=== PATIENT | male | born 1970 | race Caucasian/White ===

== ENCOUNTER 2020-07-04 13:06 | Emergency (ER) | payer MEDICARE, OTHER ==
[~2020-07-04] VITALS: Ht 170.2 cm; Wt 129.3 kg
[2020-07-04 13:51] LABS: BASOPHILS # (AUTO) 0.1 10^3/uL (0.0-0.1); BASOPHILS % (AUTO) 1 % (0-10); EOSINOPHILS # (AUTO) 1.1 10^3/uL (0.0-0.3); EOSINOPHILS % (AUTO) 10 % (0-10); HEMATOCRIT 45 % (40-54); HEMOGLOBIN 15.4 g/dL (13.3-17.7); LYMPHOCYTES # (AUTO) 1.3 10^3/uL (1.0-4.0); LYMPHOCYTES % (AUTO) 12 % (12-44); MEAN CORPUSCULAR HEMOGLOBIN 32 pg (25-34); MEAN CORPUSCULAR HGB CONC 34 g/dL (32-36); MEAN CORPUSCULAR VOLUME 93 fL (80-99); MEAN PLATELET VOLUME 9.8 fL (9.0-12.2); MONOCYTES # (AUTO) 0.6 10^3/uL (0.0-1.0); MONOCYTES % (AUTO) 5 % (0-12); NEUTROPHILS # (AUTO) 7.7 10^3/uL (1.8-7.8); NEUTROPHILS % (AUTO) 71 % (42-75); PLATELET COUNT 310 10^3/uL (130-400); WHITE BLOOD COUNT 10.9 10^3/uL (4.3-11.0)
--- NOTE | 2020-07-04 14:13 | ED Respiratory ---
General Chief Complaint: Respiratory Problems Stated Complaint: SOB/LIGHTHEADED Source: patient Exam Limitations: no limitations History of Present Illness Date Seen by Provider: Jul 04, 2020 Time Seen by Provider: 13:28 Initial Comments This is a 50-year-old male who presents to the ER with complaints of difficulty taking a full breath. States that over the past 2 days he has felt fatigued, lightheaded, and feels short of breath although his "oxygen is good at home". States has a history of asthma however this feels different than his prior asthma attacks. States he took Combivent inhaler prior to arrival. No Covid exposure, no ill contacts reported. Has not had Covid vaccines. Denies fever, chills, chest pain, abdominal pain, nausea/vomiting/diarrhea. Allergies and Home Medications Home Medications Oseltamivir Phosphate 75 Mg Capsule, 75 MG PO BID Prescribed by: HOMAR SHEFFIELD on 07/04/20 5673 Patient Home Medication List Home Medication List Reviewed: Yes Review of Systems Review of Systems Constitutional: see HPI EENTM: no symptoms reported Respiratory: see HPI Cardiovascular: no symptoms reported Gastrointestinal: no symptoms reported Genitourinary: no symptoms reported Musculoskeletal: no symptoms reported Psychiatric/Neurological: No Symptoms Reported Immunological/Allergic: no symptoms reported Physical Exam Vital Signs - First Documented 07/04/20 13:07 Temp 36.2 Pulse 101 Resp 24 B/P (MAP) 127/83 (98) Pulse Ox 100 O2 Delivery Room Air Capillary Refill : Height: '" Weight: lbs. oz. kg; BMI Method: General Appearance: WD/WN, no apparent distress Eyes: Bilateral Eye Normal Inspection, Bilateral Eye PERRL, Bilateral Eye EOMI HEENT: PERRL/EOMI, normal ENT inspection, pharynx normal Neck: full range of motion, normal inspection Respiratory: chest non-tender, normal breath sounds, no respiratory distress, no accessory muscle use, wheezing Cardiovascular: regular rate, rhythm, no murmur Gastrointestinal: normal bowel sounds, non tender, soft Extremities: normal range of motion, non-tender, normal inspection Neurologic/Psychiatric: no motor/sensory deficits, alert, normal mood/affect, oriented x 3 Skin: normal color, warm/dry Progress/Results/Core Measures Suspected Sepsis SIRS Temperature: Pulse: Respiratory Rate: Laboratory Tests 07/04/20 13:36: White Blood Count 10.9 Blood Pressure / Mean: Laboratory Tests 07/04/20 13:36: Creatinine 1.13, Platelet Count 310, Total Bilirubin 0.7 Results/Orders Lab Results Laboratory Tests Test 07/04/20 13:36 Range/Units White Blood Count 10.9 4.3-11.0 10^3/uL Red Blood Count 4.87 4.30-5.52 10^6/uL Hemoglobin 15.4 13.3-17.7 g/dL Hematocrit 45 40-54 % Mean Corpuscular Volume 93 80-99 fL Mean Corpuscular Hemoglobin 32 25-34 pg Mean Corpuscular Hemoglobin Concent 34 32-36 g/dL Red Cell Distribution Width 14.1 10.0-14.5 % Platelet Count 310 130-400 10^3/uL Mean Platelet Volume 9.8 9.0-12.2 fL Immature Granulocyte % (Auto) 1 % Neutrophils (%) (Auto) 71 42-75 % Lymphocytes (%) (Auto) 12 12-44 % Monocytes (%) (Auto) 5 0-12 % Eosinophils (%) (Auto) 10 0-10 % Basophils (%) (Auto) 1 0-10 % Neutrophils # (Auto) 7.7 1.8-7.8 10^3/uL Lymphocytes # (Auto) 1.3 1.0-4.0 10^3/uL Monocytes # (Auto) 0.6 0.0-1.0 10^3/uL Eosinophils # (Auto) 1.1 H 0.0-0.3 10^3/uL Basophils # (Auto) 0.1 0.0-0.1 10^3/uL Immature Granulocyte # (Auto) 0.1 0.0-0.1 10^3/uL D-Dimer 0.27 0.00-0.49 UG/ML Sodium Level 138 135-145 MMOL/L Potassium Level 3.7 3.6-5.0 MMOL/L Chloride Level 103 98-107 MMOL/L Carbon Dioxide Level 25 21-32 MMOL/L Anion Gap 10 5-14 MMOL/L Blood Urea Nitrogen 13 7-18 MG/DL Creatinine 1.13 0.60-1.30 MG/DL Estimat Glomerular Filtration Rate > 60 BUN/Creatinine Ratio 12 Glucose Level 256 H 70-105 MG/DL Calcium Level 9.0 8.5-10.1 MG/DL Corrected Calcium 9.1 8.5-10.1 MG/DL Total Bilirubin 0.7 0.1-1.0 MG/DL Aspartate Amino Transf (AST/SGOT) 19 5-34 U/L Alanine Aminotransferase (ALT/SGPT) 26 0-55 U/L Alkaline Phosphatase 43 40-136 U/L Troponin I < 0.028 <0.028 NG/ML C-Reactive Protein High Sensitivity 2.24 H 0.00-0.50 MG/DL Total Protein 7.2 6.4-8.2 GM/DL Albumin 3.9 3.2-4.5 GM/DL Coronavirus 2019 ([facility]ARON) Not Detected Not Detecte Micro Results Microbiology 07/04/20 Influenza Types A,B Antigen (RAJEEV) - Final, Complete My Orders Orders - HOMAR SHEFFIELD APRN Ed Iv/Invasive Line Start (07/04/20 13:33) Cbc With Automated Diff (07/04/20 13:33) Comprehensive Metabolic Panel (07/04/20 13:33) Hs C Reactive Protein (07/04/20 13:33) Troponin I (07/04/20 13:33) Fibrin Degradation Products (07/04/20 13:33) Ekg Tracing (07/04/20 13:33) Chest 1 View, Ap/Pa Only (07/04/20 13:33) Influenza A And B Antigens (07/04/20 13:33) Covid 19 Inhouse Test (07/04/20 13:33) Vital Signs/I&O 07/04/20 07/04/20 13:07 14:36 Temp 36.2 Pulse 101 84 Resp 24 22 B/P (MAP) 127/83 (98) 132/82 Pulse Ox 100 98 O2 Delivery Room Air Room Air Capillary Refill : Progress Note : Progress Note Patient examined and in no acute distress. Will order basic labs, D-dimer, troponin, Covid, flu, chest x-ray. Labs reviewed and are unremarkable. D-dimer negative. He does have positive influenza B test. Chest x-ray shows no acute findings. Declined receiving dose of Tamiflu in ER stating he wanted to see if the cost was "worth it". States he will take a prescription. Reviewed discharge plan of care and he is agreeable with plan. States he feels better knowing what is wrong with him. No questions or concerns voiced. Diagnostic Imaging Diagonstic Imaging: Xray Plain Films/CT/US/NM/MRI: chest Comments NAME: YURIY MAYA [facility] REC#: [id number] PT STATUS: REG ER : 1970 PHYSICIAN: HOMAR SHEFFIELD APRN ADMIT DATE: 07/04/20/ER Draft Date of Exam:07/04/20 CHEST 1 VIEW, AP/PA ONLY INDICATION: Shortness of air, tachycardia COMPARISON: None available TECHNIQUE: Single radiograph of the chest dated 07/04/2020 FINDINGS: The cardiac silhouette is within normal limits in size. No significant pulmonary vascular congestion. The lungs are clear without focal pulmonary opacity. No pleural effusion. No pneumothorax. No acute osseous abnormality. IMPRESSION: No acute cardiopulmonary abnormality. Dictated on workstation # [id number] Dict: 07/04/20 1419 Trans: 07/04/20 1423 [facility] [id number] Interpreted by: BEVERLEY BECK MD Electronically signed by: Reviewed: Reviewed by Me Departure Impression Primary Impression: Influenza B Disposition: HOME, SELF-CARE Condition: Improved Departure-Patient Inst. Decision time for Depature: 14:29 Referrals: NO,LOCAL PHYSICIAN (PCP/Family) Primary Care Physician Patient Instructions: Flu, Adult ED Add. Discharge Instructions: Plan: 1. Discharge home. 2. Take Tamiflu twice a day for 5 days. Stay home until you are fever free without use of medications for 48 hours. 3. Drink plenty of fluids to stay hydrated. 4. May take Tylenol or Ibuprofen as needed for pain. 5. Return for any new or worsening symptoms. All discharge instructions reviewed with patient and/or family. Voiced understanding. Scripts Oseltamivir Phosphate (Oseltamivir Phosphate) 75 Mg Capsule 75 MG PO BID for 5 Days, #10 CAP 0 Refills Prov: HOMAR SHEFFIELD APRN 07/04/20 HOMAR SHEFFIELD APRN Jul 04, 2020 14:13
[2020-07-04 14:17] LABS: ALANINE AMINOTRANSFERASE 26 U/L (0-55); ALBUMIN 3.9 GM/DL (3.2-4.5); ALKALINE PHOSPHATASE 43 U/L (40-136); BILIRUBIN,TOTAL 0.7 MG/DL (0.1-1.0); BUN/CREATININE RATIO 12; CARBON DIOXIDE 25 MMOL/L (21-32); CHLORIDE 103 MMOL/L (98-107); CREATININE SERUM 1.13 MG/DL (0.60-1.30); GFR ESTIMATED > 60; GLUCOSE 256 MG/DL (70-105); POTASSIUM 3.7 MMOL/L (3.6-5.0); SODIUM 138 MMOL/L (135-145); TOTAL PROTEIN 7.2 GM/DL (6.4-8.2)
--- NOTE | 2020-07-04 14:23 | Diagnostic Imaging Report ---
INDICATION: Shortness of air, tachycardia COMPARISON: None available TECHNIQUE: Single radiograph of the chest dated 07/04/2020 FINDINGS: The cardiac silhouette is within normal limits in size. No significant pulmonary vascular congestion. The lungs are clear without focal pulmonary opacity. No pleural effusion. No pneumothorax. No acute osseous abnormality. IMPRESSION: No acute cardiopulmonary abnormality. Dictated by: Dictated on workstation # [id number]
[2020-07-04] MEDS ORDERED: OSEL75CA15 PO (14:33)
[2020-07-04 14:36] VITALS: BP 132/82
== END 2020-07-04 14:36 | disposition home or self-care (01) ==
LOC: ER 13:09
DX: J10.1 Influenza due to other identified influenza virus with other respiratory manifestations (principal); J45.909 Unspecified asthma, uncomplicated; Z20.822 Contact with and (suspected) exposure to COVID-19
CPT/HCPCS: 71045; 80053; 84484; 85025; 85379; 86141; 87804; 93005; 99284; U0002; 36415; 87635

== ENCOUNTER 2021-08-24 17:12 | Emergency (ER) | payer MEDICARE ==
[~2021-08-24] VITALS: Ht 162 cm; Wt 117.0 kg
[~2021-08-24 17:12] MED LIST: OSEL75CA15 PO
[2021-08-24] MEDS ORDERED: CEPH500C (17:41)
--- NOTE | 2021-08-24 19:23 | ED Lower Extremity ---
General Chief Complaint: Lower Extremity Stated Complaint: RIGHT FOOT SWOLLEN Nursing Triage Note: ARRIVED VIA AMB TO TRIAGE. STATES HE WAS SEEN AT [facility] AND WAS PUT ON CEPHALEXIN AND A ULTRASOUND WAS DONE TO HIS RIGHT FOOT. STATES THE FOOT AND 2ND TOE REMAINS SWOLLEN AND THE TOE IS PURPLE. Source: patient, family Exam Limitations: no limitations History of Present Illness Date Seen by Provider: Aug 24, 2021 Time Seen by Provider: 19:19 Initial Comments This is a 51-year-old male that presents to the emergency room for evaluation of right foot pain. He states that on Sunday he noticed he had a large callus on his left second toe that he unroofed. Since then he has developed increasing pain and redness to his foot. He went to the [facility] emergency room on Sunday and was started on Keflex but states that his symptoms have persisted. He also had an ultrasound to rule out a DVT which was negative. He has a history of diabetes but states that he does not currently take any medications because he lost a lot of weight and they have told him that he no longer needed medications. Onset: other (6 days) Severity: mild Pain/Injury Location: right 2nd toe Allergies and Home Medications Allergies Coded Allergies: No Known Drug Allergies (Unverified , 08/24/21) Patient Home Medication List Home Medication List Reviewed: Yes Cephalexin (Cephalexin) 500 Mg Capsule, (Reported) Entered as Reported by: GRACIE ERWIN on 08/24/21 174 Last Action: New Order Clindamycin HCl (Clindamycin HCl) 150 Mg Capsule, 300 MG PO QID Prescribed by: Amrit Arreola on 08/24/211927 Metronidazole (Metronidazole) 500 Mg Tablet, 500 MG PO TID Prescribed by: Amrit Arreola on 08/24/211927 Discontinued Medications Oseltamivir Phosphate (Oseltamivir Phosphate) 75 Mg Capsule, 75 MG PO BID Discontinued Reason: No Longer Taking Prescribed by: HOMAR SHEFFIELD on 07/04/20 1433 Last Action: Discontinued Review of Systems Constitutional: no symptoms reported EENTM: no symptoms reported Respiratory: no symptoms reported Cardiovascular: no symptoms reported Musculoskeletal: other (Right foot swelling and ulceration to the right second toe) Skin: rash (Small ulceration to right second toe with minimal drainage) Past Ahfqmix-Pfiigm-Vzkglm Hx Patient Social History Tobacco Use?: Yes Use of E-Cig and/or Vaping dev: Yes E-Cig or Vaping type used: Nicotine Substance use?: No Alcohol Use?: No Seasonal Allergies Seasonal Allergies: No Past Medical History Surgeries: No Respiratory: Yes Asthma Cardiac: No Neurological: Yes Multiple Sclerosis Genitourinary: No Gastrointestinal: No Musculoskeletal: No Endocrine: Yes (PRE DIABETIC) Cancer: No Psychosocial: No Integumentary: No Blood Disorders: No Physical Exam Vital Signs Vital Signs - First Documented 08/24/21 17:30 Temp 37.0 Pulse 94 Resp 16 B/P (MAP) 138/83 (101) Pulse Ox 98 O2 Delivery Room Air Capillary Refill : Less Than 3 Seconds Height, Weight, BMI Height: '" Weight: lbs. oz. kg; 44.00 BMI Method: General Appearance: WD/WN, no apparent distress HEENT: PERRL/EOMI Neck: non-tender Cardiovascular: regular rate, rhythm Respiratory: chest non-tender Gastrointestinal: non tender Feet: right foot other (Patient has a small ulceration to the pad of the right second toe with minimal drainage. There is moderate edema to the foot with some erythema) Neurologic/Psychiatric: flash welder II-XII nml as tested, alert, oriented x 3 Progress/Results/Core Measures Results/Orders Vital Signs/I&O 08/24/21 17:30 Temp 37.0 Pulse 94 Resp 16 B/P (MAP) 138/83 (101) Pulse Ox 98 O2 Delivery Room Air Blood Pressure Mean: 101 Departure Communication (PCP) Patient does have a small ulceration on the right second toe with some secondary cellulitis. Per patient he had a negative ultrasound on Sunday. At this time we discussed admission for IV antibiotics but the patient would like to try outpatient antibiotics for a little longer. Given that he has a history of diabetes and now has a foot ulcer I will cover him with clindamycin and Flagyl. Patient and family agree to return to the emergency room in 1 to 2 days if symptoms persist or sooner if they worsen. Impression Primary Impression: Cellulitis of foot Additional Impression: Open toe wound Disposition: 01 HOME, SELF-CARE Condition: Stable Departure-Patient Inst. Decision time for Depature: 19:26 Referrals: [facility] [place] PHYSIC[place] (PCP) Primary Care Physician Patient Instructions: Cellulitis (Skin Infection), Adult (DC), Wound Care (DC) Add. Discharge Instructions: Please take the antibiotics until they are complete. If your symptoms persist or fail to improve in the next 1 to 2 days I want you to return to the emergency room for reevaluation. If your symptoms worsen, I want you to return immediately as we discussed. All discharge instructions reviewed with patient and/or family. Voiced understanding. Scripts Metronidazole (Metronidazole) 500 Mg Tablet 500 MG PO TID for 10 Days, #30 TAB Prov: GHADA ARREOLA 08/24/21 Clindamycin HCl (Clindamycin HCl) 150 Mg Capsule 300 MG PO QID for 10 Days, #40 CAP Prov: GHADA ARREOLA 08/24/21 GHADA ARREOLA Aug 24, 2021 19:23
[2021-08-24] MEDS ORDERED: METR-145 PO (19:28)
[2021-08-24] MEDS ORDERED: CLIN150C20 PO (19:28)
[2021-08-24 19:33] VITALS: BP 157/73
== END 2021-08-24 19:35 | disposition home or self-care (01) ==
LOC: EDUNIT# 17:12 → ER 17:15
DX: L03.115 Cellulitis of right lower limb (principal); L97.518 Non-pressure chronic ulcer of other part of right foot with other specified severity; F17.290 Nicotine dependence, other tobacco product, uncomplicated
CPT/HCPCS: 99285

== ENCOUNTER 2021-08-29 22:17 | Inpatient (IN) | payer MEDICARE ==
[~2021-08-29] VITALS: Ht 168 cm; Wt 127.0 kg
[~2021-08-29 22:17] MED LIST changes: +CEPH500C; +CLIN150C20 PO; +METR-145 PO
[2021-08-29] MEDS ORDERED: CEFEPIME INJECTION 1,000 MG in NS (IVPB) 50 ML IV ONE (23:00)
[2021-08-29] MEDS ORDERED: metroNIDAZOLE 500MG/100ML IVPB 100 ML IV ONE (23:00)
[2021-08-29 23:24] LABS: BASOPHILS # (AUTO) 0.1 10^3/uL (0.0-0.1); BASOPHILS % (AUTO) 1 % (0-10); EOSINOPHILS # (AUTO) 0.5 10^3/uL (0.0-0.3); EOSINOPHILS % (AUTO) 5 % (0-10); HEMATOCRIT 39 % (40-54); HEMOGLOBIN 13.1 g/dL (13.3-17.7); LYMPHOCYTES # (AUTO) 1.5 10^3/uL (1.0-4.0); LYMPHOCYTES % (AUTO) 14 % (12-44); MEAN CORPUSCULAR HEMOGLOBIN 30 pg (25-34); MEAN CORPUSCULAR HGB CONC 33 g/dL (32-36); MEAN CORPUSCULAR VOLUME 90 fL (80-99); MEAN PLATELET VOLUME 9.4 fL (9.0-12.2); MONOCYTES # (AUTO) 0.6 10^3/uL (0.0-1.0); MONOCYTES % (AUTO) 5 % (0-12); NEUTROPHILS # (AUTO) 8.2 10^3/uL (1.8-7.8); NEUTROPHILS % (AUTO) 75 % (42-75); PLATELET COUNT 308 10^3/uL (130-400)
[2021-08-29 23:26] LABS: BILIRUBIN,URINE NEGATIVE (NEGATIVE); CLARITY,URINE CLEAR; COLOR,URINE YELLOW; GLUCOSE, URINE (UA) 3+ (NEGATIVE); KETONES,URINE NEGATIVE (NEGATIVE); LEUKOCYTE ESTERASE ,URINE NEGATIVE (NEGATIVE); NITRITE,URINE NEGATIVE (NEGATIVE); PROTEIN,URINE NEGATIVE (NEGATIVE)
[2021-08-29 23:38] LABS: ALBUMIN 3.8 GM/DL (3.2-4.5); POTASSIUM 4.5 MMOL/L (3.6-5.0)
[2021-08-29 23:40] LABS: CALCIUM 8.8 MG/DL (8.5-10.1)
[2021-08-29 23:41] LABS: TOTAL PROTEIN 7.5 GM/DL (6.4-8.2)
[2021-08-29 23:43] LABS: BILIRUBIN,TOTAL 0.6 MG/DL (0.1-1.0)
[2021-08-29] MEDS: VANCOMYCIN INJECTION 1,000 MG in NS (IVPB) 250 ML IV SCH (23:44)
[2021-08-29 23:45] LABS: CREATININE SERUM 1.17 MG/DL (0.60-1.30)
[2021-08-29 23:51] LABS: FIBRIN DEGRADATION PRODUCTS 0.58 UG/ML (0.00-0.49)
[2021-08-30] VITALS (7 sets, daily range): BP systolic 116–129; BP diastolic 57–90
[2021-08-30] MEDS ORDERED: KETOROLAC 30 MG/ML VIAL IVP ONE
[2021-08-30 00:09] LABS: BACTERIA,URINE NEGATIVE /HPF; SQUAMOUS EPITHELIAL CELL,UR 0-2 /HPF
[2021-08-30 00:09] LABS: ERYTHROCYTE SEDIMENTATION RATE 37 MM/HR (0-30)
--- NOTE | 2021-08-30 02:06 | ED Lower Extremity ---
General Chief Complaint: Skin/Wound Problems Stated Complaint: RIGHT FOOT PAIN Nursing Triage Note: PT AMB TO ED BY POV WITH C/O WOUND ON SECOND TOE OF R FOOT. PT REPORTS HE HAD A CALLUS ON HIS TOE A WEEK AGO AND WAS SEEN HERE WHEN IT CAME OFF AND LEFT A WOUND. TOE IS RED, SWOLLEN. LEG ALSO RED AND SWOLLEN. DENIES FEVER, N/V/D. Source: patient History of Present Illness Date Seen by Provider: Aug 29, 2021 Time Seen by Provider: 22:35 Initial Comments PT ARRIVES VIA POV FROM HOME C/O RIGHT FOOT/SECOND TOE PAIN FOR OVER A WEEK RIGHT FOOT AND LOWER LEG HAS ALSO BEEN SWOLLEN FOR OVER A WEEK PT HAS HAD A CALLOUS ON HIS RIGHT GREAT TOE "FOR A COUPLE OF MONTHS" IN THE LAST WEEK HAS HAD AN OPEN WOUND/ULCER TO END OF RIGHT SECOND TOE--STATES THERE WAS A CALLOUS ON HIS SECOND TOE AND HE PULLED IT OFF, AND SINCE THEN HIS ENTIRE SECOND TOE HAS BEEN RED, SWOLLEN AND PAINFUL WENT TO [facility] LAST WEEK FOR THIS PROBLEM AND WAS PRESCRIBED KEFLEX. HAD ULTRASOUND DONE AT THAT TIME WHICH WAS NEGATIVE FOR DVT--PT STATES HE HAS HISTORY OF DVT'S BUT IS NOT ON ANY ANTICOAGULANTS--ONLY TAKES 324 MG ASPIRIN DAILY PT THEN WAS HERE ON 08/24/21 FOR THIS PROBLEM AND WAS PRESCRIBED CLINDAMYCIN AND FLAGYL, HIS SYMPTOMS WERE NOT IMPROVING WITH THE KEFLEX. HAS HIS FIRST APPOINTMENT WITH DR. GORDON, FLASH OVEN OPERATOR, FOR THIS PROBLEM TOMORROW TONIGHT, HE HIT HIS FOOT / TOE ON A STEP AND THE PAIN HAS BEEN WORSE PT IS DIABETIC--WAS ON INSULIN, BUT STATES HE HAS BEEN OFF ALL DIABETIC MEDIC ATIONS FOR OVER A YEAR, HE HAS LOST WEIGHT--HOWEVER, HE LISTS FARXIGA ONE OF HIS CURRENT DAILY MEDICATIONS PT DOES NOT CHECK HIS BLOOD SUGAR PT HAS PERIPHERAL NEUROPATHY, CHRONIC PAIN, AND CHRONIC LEG SWELLING PT ALSO HAS M.S. BUT STATES HE DOES NOT TAKE ANY MEDICATION FOR IT. HAS HTN WELL PT'S PRIMARY CARE DR IS IN [place], [place]. STATES THEY MOVED HERE "RECENTLY" ( OVER A YEAR AGO) AND HAVE NOT ESTABLISHED WITH LOCAL DR YET, SO THEY CONTINUE TO GO TO IN [place]. PT HAS NOT HAD COVID OR FLU VACCINES PT STATES HE HAS HAD COVID TWICE--LAST TIME WAS 01/2021--NO TREATMENT OR HOSPITALIZATIONS PCP: NONE LOCAL Allergies and Home Medications Allergies Coded Allergies: Penicillins (Verified Allergy, Unknown, 08/29/21) Sulfa (Sulfonamide Antibiotics) (Verified Allergy, Unknown, 08/29/21) doxycycline (Verified Allergy, Unknown, Shortness of Breath, 08/30/21) dulaglutide (Verified Allergy, Unknown, 08/30/21) semaglutide (Verified Allergy, Unknown, 08/30/21) Patient Home Medication List Home Medication List Reviewed: Yes Albuterol Sulfate (Proventil Hfa) 90 Mcg Hfa.aer.ad, 1 PUFF INH Q6H PRN for SHORTNESS OF BREATH, (Reported) Entered as Reported by: MONSE CORTEZ on 08/30/211211 Last Action: Held Albuterol Sulfate (Albuterol Sulfate) 2.5 Mg/3 Ml (0.083 %) Vial.neb, 3 ML NEB Q6H PRN for SHORTNESS OF BREATH, (Reported) Entered as Reported by: MONSE CORTEZ on 08/30/211211 Last Action: Held Aspirin (Aspirin EC) 325 Mg Tablet.dr, 325 MG PO DAILY PRN for BLOOD CLOT PREVENTION, (Reported) Entered as Reported by: MONSE CORTEZ on 08/30/211211 Last Action: Held Bupropion HCl (Bupropion Xl) 150 Mg Tab.er.24h, 150 MG PO DAILY, (Reported) Entered as Reported by: MONSE CORTEZ on 08/30/211211 Last Action: Converted Clindamycin HCl (Clindamycin HCl) 300 Mg Capsule, 300 MG PO QID, (Reported) Entered as Reported by: MONSE CORTEZ on 08/30/211211 Last Action: Held Clobetasol Propionate (Clobetasol Propionate) 0.05 % Oint...g., 1 APPLIC TOP BID PRN for BLISTERS/RASH, (Reported) Entered as Reported by: MONSE CORTEZ on 08/30/211211 Last Action: Held Dapagliflozin Propanediol (Farxiga) 10 Mg Tablet, 10 MG PO HS, (Reported) Entered as Reported by: MONSE CORTEZ on 08/30/211211 Last Action: Held Diphenhydramine HCl (Benadryl Allergy) 25 Mg Tablet, 50 MG PO HS, (Reported) Entered as Reported by: MONSE CORTEZ on 08/30/211211 Last Action: Continued Gabapentin Enacarbil (Horizant) 600 Mg Tablet.er, 600 MG PO BID, (Reported) Entered as Reported by: MONSE CORTEZ on 08/30/211211 Last Action: Converted Hydrocodone/Acetaminophen (Hydrocodone-Acetamin 7.5-325) 7.5 Mg-325 Mg Tablet, 1 EA PO TID PRN for PAIN-MODERATE (5-7), (Reported) Entered as Reported by: MONSE CORTEZ on 08/30/211211 Last Action: Held Linaclotide (Linzess) 72 Mcg Capsule, 72 MCG PO DAILY PRN for CONSTIPATION, (Rep orted) Entered as Reported by: MONSE CORTEZ on 08/30/211211 Last Action: Held Metronidazole (Metronidazole) 500 Mg Tablet, 500 MG PO TID, (Reported) Entered as Reported by: MONSE CORTEZ on 08/30/211211 Last Action: Held Oxybutynin Chloride (Oxybutynin Chloride ER) 10 Mg Tab.er.24, 10 MG PO HS, (Reported) Entered as Reported by: MONSE CORTEZ on 08/30/211211 Last Action: Converted Phentermine HCl (Phentermine HCl) 37.5 Mg Capsule, 37.5 MG PO DAILY PRN for APPETITE CONTROL, (Reported) Entered as Reported by: MONSE CORTEZ on 08/30/211211 Last Action: Held Pramipexole Di-HCl (Pramipexole Dihydrochloride) 1 Mg Tablet, 1 MG PO TID, (Reported) Entered as Reported by: MONSE CORTEZ on 08/30/211211 Last Action: Converted Rosuvastatin Calcium (Rosuvastatin Calcium) 10 Mg Tablet, 10 MG PO HS, (Reported) Entered as Reported by: MONSE CORTEZ on 08/30/211211 Last Action: Continued Sildenafil Citrate (Sildenafil Citrate) 100 Mg Tablet, 50 MG PO DAILY PRN for ED, (Reported) Entered as Reported by: MONSE CORTEZ on 08/30/211211 Last Action: Held Tamsulosin HCl (Flomax) 0.4 Mg Cap, 0.4 MG PO HS, (Reported) Entered as Reported by: MONSE CORTEZ on 6/21/22 1212 Last Action: Continued Tizanidine HCl (Tizanidine HCl) 4 Mg Tablet, 4 MG PO TID PRN for MUSCLE SPASMS, (Reported) Entered as Reported by: MONSE CORTEZ on 08/30/21 121 Last Action: Continued Discontinued Medications Cephalexin (Cephalexin) 500 Mg Capsule, (Reported) Discontinued Reason: No Longer Taking Entered as Reported by: GRACIE ERWIN on 08/24/21 1741 Last Action: Discontinued Clindamycin HCl (Clindamycin HCl) 150 Mg Capsule, 300 MG PO QID Discontinued Reason: No Longer Taking Prescribed by: Amrit Pickens on 08/24/211927 Last Action: Discontinued Metronidazole (Metronidazole) 500 Mg Tablet, 500 MG PO TID Discontinued Reason: No Longer Taking Prescribed by: Amrit Pickens on 08/24/211927 Last Action: Discontinued Oseltamivir Phosphate (Oseltamivir Phosphate) 75 Mg Capsule, 75 MG PO BID Discontinued Reason: No Longer Taking Prescribed by: HOMAR SHEFFIELD on 07/04/20 1433 Review of Systems Constitutional: no symptoms reported; No fever Respiratory: no symptoms reported Cardiovascular: no symptoms reported Gastrointestinal: no symptoms reported Genitourinary: no symptoms reported Musculoskeletal: see HPI Skin: see HPI Psychiatric/Neurological: See HPI Past Ednvsyt-Fylvry-Tfcafr Hx Patient Social History Tobacco Use?: Yes Tobacco type used: Cigarettes Smoking Status: Current Everyday Smoker Use of E-Cig and/or Vaping dev: Yes E-Cig or Vaping type used: Nicotine Use of E-Cig and/or Vaping Ben: Current Everyday User Substance use?: No Alcohol Use?: No Pt feels they are or have been: No Seasonal Allergies Seasonal Allergies: No Past Medical History Surgery/Hospitalization HX: MS, DM2, SLEEP APNEA, NEUROPATHY, FIBROMYALGIA Surgeries: Yes (UMBILICAL HERNIA REPAIR; THROAT SURGERY FOR SLEEP APNEA) Abdominal Respiratory: Yes Asthma, Sleep Apnea Currently Using CPAP: No Cardiac: Yes Chronic Edema/Swelling, Deep Vein Thrombosis, High Cholesterol, Hypertension Neurological: Yes (MEMORY LOSS/POOR MEMORY; PERIPHERAL NEUROPATHY) Multiple Sclerosis, Neuropathy Reproductive Disorders: Yes (E.D.) Genitourinary: Yes (BLADDER CONTROL ISSUES; E.D.) Gastrointestinal: Yes (UMBILICAL HERNIA REPAIR) Chronic Constipation, Chronic Diarrhea, Irritable Bowel Musculoskeletal: Yes (CHRONIC GENERALIZED PAIN; RESTLESS LEG ) Chronic Back Pain Endocrine: Yes (WAS ON INSULIN, NOW ON FARXIGA; OBESITY) Diabetes, Non-Insulin dep HEENT: No (GLASSES) Cancer: No Psychosocial: No Integumentary: No Blood Disorders: No Family Medical History SOCIAL HISTORY: -SMOKES 1 PPD, PT ALSO VAPES NICOTINE DAILY -DENIES ETOH USE -DENIES DRUG USE PAST SURGICAL HISTORY: -UMBILICAL HERNIA REPAIR -THROAT SURGERY FOR SLEEP APNEA Physical Exam Vital Signs Vital Signs - First Documented 08/29/21 22:30 Temp 36.9 Pulse 94 Resp 18 B/P (MAP) 142/82 (102) Pulse Ox 97 O2 Delivery Room Air Capillary Refill : Height, Weight, BMI Height: '" Weight: lbs. oz. kg; 44.00 BMI Method: General Appearance: WD/WN, no apparent distress, obese Cardiovascular: normal peripheral pulses, regular rate, rhythm Respiratory: normal breath sounds, no respiratory distress Gastrointestinal: non tender, soft Legs: left leg normal inspection; right leg other (2+ SWELLING TO RIGHT LEG FROM KNEE TO TOES. NO CALF TENDERNESS. NO CORDING. NEGATIVE GARY'S) Knees: bilateral knee normal inspection Ankles: left ankle normal inspection; right ankle other ( ABOVE) Feet: right foot other (END OF RIGHT SECOND TOE WITH AT LEAST A STAGE 2 ULCER, WITH SURROUNDING BLANCHING TO END OF TOE. REMAINDER OF RIGHT SECOND TOE IS MODERATELY SWOLLEN, VERY ERYTHEMATOUS AND WARM AND TENDER TO PALPATION. MEDIAL ASPECT OF RIGHT GREAT TOE WITH CALLOUS AND SUB Q ERYTHEMA /ECCHYMOSIS. PT WITH GENERALIZED DECREASED SENSATION TO BOTH FEET. MOTOR INTACT. ) Neurologic/Tendon: normal motor functions, normal tendon functions, sensory deficit (DECREASED SENSATION TO LIGHT TOUCH TO BOTH FEET) Neurologic/Psychiatric: analytics analyst II-XII nml as tested, alert, normal mood/affect, oriented x 3; No motor weakness; sensory deficit Skin: warm/dry, other ( ABOVE. ) Progress/Results/Core Measures Results/Orders Lab Results Laboratory Tests Test 08/29/21 06:47 08/29/21 23:05 08/29/21 23:06 08/29/21 23:14 Range/Units White Blood Count 11.0 4.3-11.0 10^3/uL Red Blood Count 4.35 4.30-5.52 10^6/uL Hemoglobin 13.1 L 13.3-17.7 g/dL Hematocrit 39 L 40-54 % Mean Corpuscular Volume 90 80-99 fL Mean Corpuscular Hemoglobin 30 25-34 pg Mean Corpuscular Hemoglobin Concent 33 32-36 g/dL Red Cell Distribution Width 13.5 10.0-14.5 % Platelet Count 308 130-400 10^3/uL Mean Platelet Volume 9.4 9.0-12.2 fL Immature Granulocyte % (Auto) 0 % Neutrophils (%) (Auto) 75 42-75 % Lymphocytes (%) (Auto) 14 12-44 % Monocytes (%) (Auto) 5 0-12 % Eosinophils (%) (Auto) 5 0-10 % Basophils (%) (Auto) 1 0-10 % Neutrophils # (Auto) 8.2 H 1.8-7.8 10^3/uL Lymphocytes # (Auto) 1.5 1.0-4.0 10^3/uL Monocytes # (Auto) 0.6 0.0-1.0 10^3/uL Eosinophils # (Auto) 0.5 H 0.0-0.3 10^3/uL Basophils # (Auto) 0.1 0.0-0.1 10^3/uL Immature Granulocyte # (Auto) 0.0 0.0-0.1 10^3/uL Erythrocyte Sedimentation Rate 37 H 0-30 MM/HR Prothrombin Time 14.0 12.2-14.7 SEC INR Comment 1.0 0.8-1.4 Activated Partial Thromboplast Time 34 24-35 SEC D-Dimer 0.58 H 0.00-0.49 UG/ML Sodium Level 138 135-145 MMOL/L Potassium Level 4.5 3.6-5.0 MMOL/L Chloride Level 104 98-107 MMOL/L Carbon Dioxide Level 22 21-32 MMOL/L Anion Gap 12 5-14 MMOL/L Blood Urea Nitrogen 14 7-18 MG/DL Creatinine 1.17 0.60-1.30 MG/DL Estimat Glomerular Filtration Rate 76 BUN/Creatinine Ratio 12 Glucose Level 118 H 70-105 MG/DL Lactic Acid Level 0.84 0.50-2.00 MMOL/L Calcium Level 8.8 8.5-10.1 MG/DL Corrected Calcium 9.0 8.5-10.1 MG/DL Magnesium Level 2.0 1.6-2.4 MG/DL Total Bilirubin 0.6 0.1-1.0 MG/DL Aspartate Amino Transf (AST/SGOT) 27 5-34 U/L Alanine Aminotransferase (ALT/SGPT) 36 0-55 U/L Alkaline Phosphatase 37 L 40-136 U/L Total Creatine Kinase 225 H 30-200 U/L Creatine Kinase MB 3.0 <6.6 NG/ML Myoglobin 87.5 10.0-92.0 NG/ML C-Reactive Protein High Sensitivity 4.34 H 0.00-0.50 MG/DL B-Type Natriuretic Peptide 11.6 <100.0 PG/ML Total Protein 7.5 6.4-8.2 GM/DL Albumin 3.8 3.2-4.5 GM/DL Beta-Hydroxybutyrate (Chem panel) 0.15 0.00-0.27 MMOL/L Glucometer 117 H 70-110 MG/DL Urine Color YELLOW Urine Clarity CLEAR Urine pH 6.0 5-9 Urine Specific [place] >=1.030 1.016-1.022 Urine Protein NEGATIVE NEGATIVE Urine Glucose (UA) 3+ H NEGATIVE Urine Ketones NEGATIVE NEGATIVE Urine Nitrite NEGATIVE NEGATIVE Urine Bilirubin NEGATIVE NEGATIVE Urine Urobilinogen 0.2 < = 1.0 MG/DL Urine Leukocyte Esterase NEGATIVE NEGATIVE Urine RBC (Auto) NEGATIVE NEGATIVE Urine RBC NONE /HPF Urine WBC NONE /HPF Urine Squamous Epithelial Cells 0-2 /HPF Urine Crystals NONE /LPF Urine Bacteria NEGATIVE /HPF Urine Casts NONE /LPF Urine Mucus NEGATIVE /LPF Urine Culture Indicated NO Micro Results Microbiology 08/29/21 Blood Culture - Preliminary, Resulted No growth 08/29/21 Blood Culture - Preliminary, Resulted No growth My Orders Orders - RASHEED GOMEZ DO Accucheck Stat ONCE (08/29/21 22:46) Ed Iv/Invasive Line Start (08/29/21 22:46) Foot, Right, 3 View (08/29/21 22:46) Bnp [place] (08/29/21 22:46) Cbc With Automated Diff (08/29/21 22:46) Comprehensive Metabolic Panel (08/29/21 22:46) Creatine Kinase (08/29/21 22:46) Creatine Kinase Mb (08/29/21 22:46) Hs C Reactive Protein (08/29/21 22:46) Fibrin Degradation Products (08/29/21 22:46) Lactic Acid Analyzer (08/29/21 22:46) Magnesium (08/29/21:46) Protime With Inr (08/29/21:46) Partial Thromboplastin Time (08/29/21:46) Ua Culture If Indicated (08/29/21:46) Blood Culture (08/29/21:46) Erythrocyte Sedimentation Rate (08/29/21:46) Myoglobin Serum (08/29/21:46) Ed Iv/Invasive Line Start (08/29/21 22:46) Ed Iv/Invasive Line Start (08/29/21 22:46) Vital Signs Adult Sepsis Patie Q15M (08/29/21 22:46) Remove Rings In Anticipation O (08/29/21 22:46) Metronidazole 500mg/100ml Ivpb (Flagyl 5 (08/29/21 23:00) Cefepime Injection (Maxipime Injection) (08/29/21 23:00) Vancomycin Injection (Vancomycin Injecti (08/29/21 23:00) Ketorolac Injection (Toradol Injection) (08/30/21 00:00) Ed Admission (Communication) (08/30/21 00:41) General/Regular (08/30/21 Breakfast) Beta Hydroxybutyrate (08/30/21 04:48) Hemoglobin A1c (08/30/21 04:48) Medications Given in ED Vital Signs/I&O 08/29/21 22:30 Temp 36.9 Pulse 94 Resp 18 B/P (MAP) 142/82 (102) Pulse Ox 97 O2 Delivery Room Air Blood Pressure Mean: 102 FSBG Bedside Testing Finger Stick Blood Glucose: 117 Progress Progress Note : Progress Note SEPSIS PROTOCOL INITIATED 14--FOCUS EXAM DONE SEPSIS RULED OUT --DOES NOT MEET CRITERIA AT THIS TIME EXAM UNCHANGED. GIVEN IV FLUIDS, ANTIBIOTICS, LACTIC ACID LEVEL DONE. THERE IS NO DRAINAGE FROM THE WOUND AT THIS TIME TO CULTURE. PT UP AND PACING AT INTERVALS DURING ER STAY, PT ABLE TO WALK /BEAR WEIGHT ON RIGHT FOOT WITHOUT DIFFICULTY Diagnostic Imaging Comments XRAYS RIGHT FOOT--NO ACUTE PROCESS, PENDING RADIOLOGIST REVIEW Reviewed: Reviewed by Me Departure Communication (Admissions) THERE ARE CURRENTLY NO BEDS AVAILABLE DUE TO STAFFING ISSUES, BUT THERE WILL BE BEDS/STAFF AVAILABLE AT 0700 AT SHIFT CHANGE, AND WILL BE ABLE TO ADMIT PT TO THE FLOOR AT THAT TIME. WILL HOLD PT IN ER UNTIL THAT TIME. DISCUSSED THIS WITH AGRICULTURAL ECONOMICS PROFESSOR [id number]--SPOKE WITH DR. HERRING, HOSPITALIST, ACCEPTS PT FOR ADMIT. SHE WILL DO ADMIT ORDERS IN THE MORNING. Impression Primary Impression: Cellulitis of right foot Additional Impressions: DIABETIC FOOT ULCER WITH CELLULITIS RIGHT SECOND TOE NIDDM Peripheral neuropathy Disposition: ADMITTED INPATIENT Condition: Stable Admissions Decision to Admit Reason: Admit from ER (General) Decision to Admit/Date: Aug 30, 2021 Time/Decision to Admit Time: 00:40 Departure-Patient Inst. Referrals: NO,LOCAL PHYSICIAN (PCP/Family) Primary Care Physician RASHEED GOMEZ DO Aug 30, 2021 02:06
[2021-08-30] MEDS: VANCOMYCIN INJECTION 1,000 MG in NS (IVPB) 250 ML IV SCH (02:18)
--- NOTE | 2021-08-30 06:38 | Diagnostic Imaging Report ---
Clinical indications: Patient complains of wound on second toe right foot. Patient reports he had a callus on the toe a week ago and has been seen here when it came off and left a wound. Toe is red and swollen. EXAM: X-ray right foot, 3 views. COMPARISON: None. FINDINGS: There is soft tissue swelling involving the 2nd digit. There is no soft tissue gas. There is no gross evidence of bony erosive or destructive process. There are hypertrophic calcaneal spurs at the plantar and Achilles attachment. There is spurring of the dorsal midfoot and 1st MTP joint. IMPRESSION: 1: There is soft tissue swelling adjacent to the 2nd digit. There is no soft tissue gas. There is no bony erosive or destructive process. 2: There is degenerative disease in right foot. Dictated by: Dictated on workstation # [id number]
[2021-08-30] MEDS ORDERED: VANCOMYCIN INJECTION 0.1 MG in NS (IVPB) 250 ML IV SCH (06:45)
[2021-08-30] MEDS ORDERED: ONDANSETRON 4 MG (ZOFRAN) ORAL DISSOLVE TAB PO PRN (06:45)
[2021-08-30] MEDS ORDERED: BISACODYL 10 MG SUPP (DULCOLAX) PR PRN (06:45)
[2021-08-30] MEDS ORDERED: diphenhydrAMINE 25 MG TAB (BENADRYL) PO PRN (06:45)
[2021-08-30] MEDS ORDERED: polyethylene glycoL POWDER 17 GM (MIRALAX) PACK PO PRN (06:45)
[2021-08-30] MEDS ORDERED: ONDANSETRON 4 MG/2 ML (SDV) Z0FRAN IV PRN (06:45)
[2021-08-30] MEDS ORDERED: ANTACID SUSP 30 ML UDC (MYLANTA) PO PRN (06:45)
[2021-08-30] MEDS ORDERED: ACETAMINOPHEN 325 MG TABLET PO PRN (06:45)
[2021-08-30] MEDS ORDERED: morphine INJ 4 MG/ML 1 ML (VIAL/SYRINGE) IV PRN (06:45)
[2021-08-30] MEDS ORDERED: MELATONIN 3 MG TABLET PO PRN (06:45)
[2021-08-30] MEDS ORDERED: MILK OF MAGNESIA 400 MG/5 ML 30 ML UDC PO PRN (06:45)
[2021-08-30] MEDS ORDERED: diphenhydrAMINE 50 MG/ML INJ (BENADRYL) IVP PRN (06:45)
[2021-08-30] MEDS ORDERED: LACTULOSE SYRUP 10GM/15ML (ENULOSE) 30ML UDC PO PRN (06:45)
[2021-08-30] MEDS ORDERED: CALCIUM CARBONATE 500 MG (TUMS) TAB.CHEW PO PRN (06:45)
[2021-08-30] MEDS ORDERED: CEFEPIME INJECTION 1,000 MG in NS (IVPB) 50 ML IV SCH (06:53)
[2021-08-30] MEDS ORDERED: metroNIDAZOLE 500MG/100ML IVPB 100 ML IV SCH (06:54)
[2021-08-30] MEDS ORDERED: RT-ALBUTEROL SULF 2.5 MG/3 ML PRE-MIX VIAL INH PRN (08:00)
[2021-08-30] MEDS: VANCOMYCIN 2000 MG/NS 500 ML IVPB IV SCH ×4 (08:03→20:19)
[2021-08-30] MEDS: NS IV 1000 ML 1,000 ML IV SCH (08:03)
[2021-08-30] MEDS: SENNOSIDES 8.6 MG (SENOKOT) TAB PO SCH ×2 (09:00→20:29)
[2021-08-30] MEDS: DOCUSATE SODIUM 100 MG (COLACE) CAP PO SCH ×2 (09:00→20:28)
[2021-08-30] MEDS: CEFEPIME INJECTION 1,000 MG in NS (IVPB) 50 ML IV SCH ×2 (11:34→17:55)
[2021-08-30] MEDS ORDERED: DIPH25TA65 PO (12:12)
[2021-08-30] MEDS ORDERED: HYDR-3817 PO (12:12)
[2021-08-30] MEDS ORDERED: TIZA-186 PO (12:12)
[2021-08-30] MEDS ORDERED: ASPI325T32 PO (12:12)
[2021-08-30] MEDS ORDERED: CLOB15OI2 TOP (12:12)
[2021-08-30] MEDS ORDERED: PHEN-483 PO (12:12)
[2021-08-30] MEDS ORDERED: ALBU2.5V4 NEB (12:12)
[2021-08-30] MEDS ORDERED: METR-145 PO (12:12)
[2021-08-30] MEDS ORDERED: GABA-726 PO (12:12)
[2021-08-30] MEDS ORDERED: SILD100T67 PO (12:12)
[2021-08-30] MEDS ORDERED: PRAM1TAB5 PO (12:12)
[2021-08-30] MEDS ORDERED: TMSL.4C PO (12:12)
[2021-08-30] MEDS ORDERED: DAPA10TA PO (12:12)
[2021-08-30] MEDS ORDERED: LINA72CA PO (12:12)
[2021-08-30] MEDS ORDERED: ROSU10TA28 PO (12:12)
[2021-08-30] MEDS ORDERED: OXYB10TA29 PO (12:12)
[2021-08-30] MEDS ORDERED: ALBU6.7H8 INH (12:12)
[2021-08-30] MEDS ORDERED: CLIN-144 PO (12:12)
[2021-08-30] MEDS ORDERED: BUPR150T24 PO (12:12)
[2021-08-30] MEDS: inSUlin ASPART (NovoLOG) 1 UNIT/0.01 ML (CHARGE PER UNIT) SC SCH ×3 (12:59→21:18)
[2021-08-30] MEDS: metroNIDAZOLE 500MG/100ML IVPB 100 ML IV SCH ×2 (12:59→18:33)
[2021-08-30] MEDS ORDERED: NS (IVPB) 50 ML ONE (13:53)
[2021-08-30] MEDS ORDERED: HYPOCHLOROUS ACID/NaCl (VASHE) 250 ML IR SCH (15:30)
--- NOTE | 2021-08-30 15:36 | Wound Care Assessment ---
Wound Care Assessment Date Seen by Provider: Aug 30, 2021 Time Seen by Provider: 15:28 Chief Complaint R. 2nd toe diabetic foot ulcer HPI This pleasant 51 year old presents to the hospital with a cellulitis of his right 2nd toe with associated DFU. John does not have a local PCP. His lives in [place] and he visits every 3 months for diabetic visits. He notes that he has not been on diabetic meds for >1 year after he lost >100 pounds. However, he has gained some of this weight back. He does not monitor his sugars at home. He has several large callouses on his foot which he has managed with both filing and cutting away at the callouses on his own. The new ulcer on his second toe is a result of him cutting his callous a "bit too deep" with a knife. John does also have a smoking history. He previously smoked 1 ppd for many years but now smokes 3-4 cigarettes daily and vapes throughout the day instead. He is obese with a BMI of 44 and bilateral LE lymphedema. He does also have diabetic peripheral neuropathy. He went to the ER initially as outpatient and was started on Clinda and Flagyl without improvement. His CRP and ESR are both elevated on labs. Plain films with soft tissue swelling but no obvious osteomyelitis. He is currently on Vanc, Cefepime and Flagyl. He does have an A1C pending. John does not off load properly and is pacing about his room for the entirety of our visit. This will complicate his healing further. He has already scheduled a visit with Dr. Shah as an outpatient to assist in diabetic foot care. Segmental studies would be indicated with John's history of smoking and diabetes and further evaluation to rule out osteomyelitis with MRI may be indicated in the future should he fail to improve with conventional methods. Past Medical History: Admits Diabetes Type II Lyphedema, obesity, tobaccoism, diabetic neuropathy, cellulitis Smoking Status: Current Everyday Smoker (1ppd (now 3-4 cigarettes and vaping between)) Recreational Drug Use: No Alcohol Use: Denies Use Review of Systems General: Other (obesity) Exam Vital Signs Date Time Temp Pulse Resp B/P (MAP) Pulse Ox O2 Delivery O2 Flow Rate FiO2 08/30/21 11:12 36.1 82 18 126/78 (94) 96 Room Air 08/30/21 07:52 21 Capillary Refill : General Appearance: WD/WN, no apparent distress, obese Respiratory: no respiratory distress, no accessory muscle use Extremities: normal range of motion, pedal edema (2+ bilateral LE) Neurologic/Psychiatric: alert, normal mood/affect, oriented x 3 Skin Problem Location: lower extremities Skin Character: erythema (R. 2nd toe/foot), swelling Wound assessment: 1.5x1.5x0.1cm. The epithelialization is none. There is no tunneling or undermining. Drainage is medium and serous. Granulation is small and pink, necrotic is large and eschar. The wound margins are flat. There is erythema, induration and heavy callous in periwound. Evidence of past skin sloughing Results Laboratory Tests 08/29/21 23:05: White Blood Count 11.0, Red Blood Count 4.35, Hemoglobin 13.1L, Hematocrit 39L, Mean Corpuscular Volume 90, Mean Corpuscular Hemoglobin 30, Mean Corpuscular Hemoglobin Concent 33, Red Cell Distribution Width 13.5, Platelet Count 308, Mean Platelet Volume 9.4, Immature Granulocyte % (Auto) 0, Neutrophils (%) ( Auto) 75, Lymphocytes (%) (Auto) 14, Monocytes (%) (Auto) 5, Eosinophils (%) (Auto) 5, Basophils (%) (Auto) 1, Neutrophils # (Auto) 8.2H, Lymphocytes # (Auto) 1.5, Monocytes # (Auto) 0.6, Eosinophils # (Auto) 0.5H, Basophils # (Auto) 0.1, Immature Granulocyte # (Auto) 0.0, Erythrocyte Sedimentation Rate 37H, Prothrombin Time 14.0, INR Comment 1.0, Activated Partial Thromboplast Time 34, D-Dimer 0.58H, Sodium Level 138, Potassium Level 4.5, Chloride Level 104, Carbon Dioxide Level 22, Anion Gap 12, Blood Urea Nitrogen 14, Creatinine 1.17, Estimat Glomerular Filtration Rate 76, BUN/Creatinine Ratio 12, Glucose Level 118H, Lactic Acid Level 0.84, Calcium Level 8.8, Corrected Calcium 9.0, Magnesium Level 2.0, Total Bilirubin 0.6, Aspartate Amino Transf (AST/SGOT) 27, Alanine Aminotransferase (ALT/SGPT) 36, Alkaline Phosphatase 37L, Total Creatine Kinase 225H, Creatine Kinase MB 3.0, Myoglobin 87.5, C-Reactive Protein High Sensitivity 4.34H, B-Type Natriuretic Peptide 11.6, Total Protein 7.5, Albumin 3.8, Beta-Hydroxybutyrate (Chem panel) 0.15 08/29/21 23:06: Glucometer 117H 08/29/21 23:14: Urine Color YELLOW, Urine Clarity CLEAR, Urine pH 6.0, Urine Specific [place] >=1.030, Urine Protein NEGATIVE, Urine Glucose (UA) 3+H, Urine Ketones NEGATIVE, Urine Nitrite NEGATIVE, Urine Bilirubin NEGATIVE, Urine Urobilinogen 0.2, Urine Leukocyte Esterase NEGATIVE, Urine RBC (Auto) NEGATIVE, Urine RBC NONE, Urine WBC NONE, Urine Squamous Epithelial Cells 0-2, Urine Crystals NONE, Urine Bacteria NEGATIVE, Urine Casts NONE, Urine Mucus NEGATIVE, Urine Culture Indicated NO 08/30/21 11:10: Glucometer 192H 08/30/21 15:23: Glucometer 175H Assessment/Plan/Dx Assessment: 1. Non-pressure ulcer of R. 2nd toe (full thickness) 2. Diabetes (poor control) with foot ulcer and neuropathy 3. Cellulitis 4. Obesity 5. Lymphedema 6. Tobaccoism 7. Self injury Plan: 1. Cleanse daily with Vashe. Apply silver alginate hydrofiber to wound bed and secure with roller gauze and tape. 2. Good glycemic control is warranted. A1C is pending. Diet/lifestyle changes advised 3. Agree with broad spectrum antibiotics 4. Weight loss advised 5. Elevation advisable 6. Smoking cessation advised 7. I would strongly advise AGAINST self-debridement. Agree with regular diabetic foot care with Dr. Shah. Off loading will be a struggle with John as it appears he prefers to be on his feet even with a serious infection. RAÚL HELLER MD Aug 30, 2021 15:36
--- NOTE | 2021-08-30 17:28 | History & Physical-Hospitalist ---
History of Present Illness HPI/Chief Complaint John Jaimes is a 51 year old male with PMH T2DM, HLD, BPH, history of DVT, who presented with toe pain. He has had a callus on his toe for a long time. He has been managing it himself and using a stone to remove the skin. He says he removed too much and made it bleed. He has had redness and swelling for a couple weeks. He was put on an antibiotic but it didn't improve so he came to the ER. He was put on different antibiotics at that time. He hit his foot on a step and it has been worse since then. He denies fevers and chills. He denies nausea and vomiting. He has not seen any discharge. He has been up and walking on it. He denies shortness of breath and cough. He denies chest pain. He denies abdominal pain. He has not been taking diabetic medications for some time. He says that he lost weight and started using medical marijuana and his blood sugars improved. He is following with a doctor in [place]. He has not established with a new doctor since moving here. Source: patient Exam Limitations: no limitations Date Seen 08/30/21 Time Seen by a Provider: 10:50 Attending Physician No,Local Physician PCP Admitting Physician: aMrifer Olvera DO Attending Physician: Marifer Olvera DO Referring Physician Date of Admission Aug 30, 2021 at 06:02 Home Medications & Allergies Home Medications Reviewed patient Home Medication Reconciliation performed by pharmacy medication reconciliations procurement technician and/or nursing. Patients Allergies have been reviewed. Allergies Allergies Coded Allergies Penicillins (Verified Allergy, Unknown, 08/29/21) Sulfa (Sulfonamide Antibiotics) (Verified Allergy, Unknown, 08/29/21) doxycycline (Verified Allergy, Unknown, Shortness of Breath, 08/30/21) dulaglutide (Verified Allergy, Unknown, 08/30/21) semaglutide (Verified Allergy, Unknown, 08/30/21) Past Possdlu-Cuqrhk-Feamej Hx Patient Social History Tobacco Use?: No Tobacco type used: Cigarettes Smoking Status: Current Everyday Smoker (1ppd (now 3-4 cigarettes and vaping between)) Use of E-Cig and/or Vaping dev: Yes E-Cig or Vaping type used: Nicotine Use of E-Cig and/or Vaping Ben: Current Everyday User Substance use?: No Alcohol Use?: Yes Alcohol type: Beer Alcohol Frequency: Rarely Pt feels they are or have been: No Immunizations Up To Date Tetanus Booster (TDap): Unknown Hepatitis A: No Hepatitis B: No Seasonal Allergies Seasonal Allergies: No Current Status Advance Directives: No Communicates: Verbally Primary Language: Malagasy Preferred Spoken Language: Malagasy Is interpretation needed?: No Sensory deficits: Vision impairment Implanted or Applied Medical D: None Past Medical History Surgeries: Abdominal Asthma, Sleep Apnea Currently Using CPAP: No Chronic Edema/Swelling, Deep Vein Thrombosis, High Cholesterol, Hypertension Multiple Sclerosis, Neuropathy Chronic Constipation, Chronic Diarrhea, Irritable Bowel Chronic Back Pain Diabetes, Non-Insulin dep Blood Disorders: No Family Medical History No Pertinent Family Hx SOCIAL HISTORY: -SMOKES 1 PPD, PT ALSO VAPES NICOTINE DAILY -DENIES ETOH USE -DENIES DRUG USE PAST SURGICAL HISTORY: -UMBILICAL HERNIA REPAIR -THROAT SURGERY FOR SLEEP APNEA Review of Systems Constitutional: no symptoms reported EENTM: no symptoms reported Respiratory: no symptoms reported Cardiovascular: no symptoms reported Gastrointestinal: no symptoms reported Genitourinary: no symptoms reported Musculoskeletal: no symptoms reported Skin: change in color (toe) Psychiatric/Neurological: No Symptoms Reported Physical Exam Physical Exam Vital Signs Vital Signs - First Documented 08/29/21 08/30/21 22:30 07:52 Temp 36.9 Pulse 94 Resp 18 B/P (MAP) 142/82 (102) Pulse Ox 97 O2 Delivery Room Air FiO2 21 Capillary Refill : Height, Weight, BMI Height: '" Weight: lbs. oz. kg; 44.99 BMI Method: General Appearance: No Apparent Distress, Obese HEENT: PERRL/EOMI, Pharynx Normal Neck: Normal Inspection, Supple Respiratory: Lungs Clear, Normal Breath Sounds, No Respiratory Distress Cardiovascular: Regular Rate, Rhythm, No Murmur Gastrointestinal: Normal Bowel Sounds, Non Tender, Soft Extremity: Normal Inspection, Non Tender, Pedal Edema Neurologic/Psychiatric: Alert, Oriented x3, Normal Mood/Affect Skin: Warm/Dry, Erythema (right second toe, swelling, warmth) Results Results/Procedures Labs Laboratory Tests 08/29/21 23:05 Patient resulted labs reviewed. Imaging: Reviewed Imaging Report Assessment/Plan Admission Diagnosis T2DM with diabetic foot infection Admission Status: Inpatient Order (span 2 midnights) Reason for Inpatient Admission: IV antibiotics Assessment and Plan Cellulitis of right foot T2DM with diabetic foot infection IV antibiotics Wound care consult Sliding scale insulin HLD BPH Continue home meds Morbid obesity Clinically significant, no acute management needs DVT prophylaxis: Lovenox Diagnosis/Problems Diagnosis/Problems (1) Cellulitis of right foot Status: Acute (2) T2DM (type 2 diabetes mellitus) Status: Acute Qualifiers: Diabetes mellitus termite renewal inspector insulin use: without usp use Diabetes mellitus complication status: with skin complications (3) Morbid obesity Status: Chronic (4) HLD (hyperlipidemia) Status: Chronic (5) BPH (benign prostatic hyperplasia) Status: Chronic (6) History of DVT (deep vein thrombosis) Status: Chronic Clinical Quality Measures DVT/VTE Risk/Contraindication: Contraindications-Mechi: Other *list below* Other: right leg cellulitis IQRA LR MD Aug 30, 2021 17:28
[2021-08-30] MEDS: ROSUVASTATIN 10 MG (CRESTOR) TABLET PO SCH (20:15)
[2021-08-30] MEDS: PRAMIPEXOLE 0.5 MG TAB (MIRAPEX) PO SCH (20:16)
[2021-08-30] MEDS: OXYBUTYNIN (DITROPAN) 5 MG TAB PO SCH (20:17)
[2021-08-30] MEDS: diphenhydrAMINE 25 MG TAB (BENADRYL) PO SCH (20:17)
[2021-08-30] MEDS: TAMSULOSIN 0.4 MG (FLOMAX) CAP PO SCH (20:18)
[2021-08-30] MEDS ORDERED: NON-FORMULARY MEDICATION 1 EA EA (Pramipexole Di-HCl (Pramipexole Dihydrochloride) 1 MG) PO SCH (21:00)
[2021-08-30] MEDS ORDERED: OXYBUTYNIN (DITROPAN) 5 MG TAB PO SCH (21:00)
[2021-08-30] MEDS ORDERED: NON-FORMULARY MEDICATION 1 EA EA (Oxybutynin Chloride (Oxybutynin Chloride ER) 10 MG) PO SCH (21:00)
[2021-08-30] MEDS: ALPRAZolam 0.25 MG (XANAX) TAB PO PRN (22:26)
[2021-08-30] MEDS: ENOXAPARIN 40 MG/0.4 ML (LOVENOX) SYR SQ SCH (22:27)
[2021-08-31] MEDS: CEFEPIME INJECTION 1,000 MG in NS (IVPB) 50 ML IV SCH ×5 (00:12→23:27)
[2021-08-31] MEDS: NS IV 1000 ML 1,000 ML IV SCH ×3 (02:44→21:43)
[2021-08-31] MEDS: metroNIDAZOLE 500MG/100ML IVPB 100 ML IV SCH ×3 (02:44→18:20)
[2021-08-31 03:33] VITALS: BP 105/69
[2021-08-31] MEDS: inSUlin ASPART (NovoLOG) 1 UNIT/0.01 ML (CHARGE PER UNIT) SC SCH ×4 (05:35→21:05)
[2021-08-31] MEDS: [UNRECOGNIZED DRUG - REMARK] PO SCH ×3 (06:00→18:35)
[2021-08-31] MEDS ORDERED: TROUGH ORDER-PHARMACY XX ONE (07:00)
[2021-08-31 07:26] LABS: BASOPHILS # (AUTO) 0.1 10^3/uL (0.0-0.1); BASOPHILS % (AUTO) 1 % (0-10); EOSINOPHILS # (AUTO) 0.4 10^3/uL (0.0-0.3); EOSINOPHILS % (AUTO) 5 % (0-10); HEMATOCRIT 39 % (40-54); HEMOGLOBIN 12.7 g/dL (13.3-17.7); LYMPHOCYTES # (AUTO) 1.2 10^3/uL (1.0-4.0); LYMPHOCYTES % (AUTO) 14 % (12-44); MEAN CORPUSCULAR HEMOGLOBIN 30 pg (25-34); MEAN CORPUSCULAR HGB CONC 33 g/dL (32-36); MEAN CORPUSCULAR VOLUME 92 fL (80-99); MEAN PLATELET VOLUME 9.3 fL (9.0-12.2); MONOCYTES # (AUTO) 0.5 10^3/uL (0.0-1.0); MONOCYTES % (AUTO) 6 % (0-12); NEUTROPHILS # (AUTO) 6.6 10^3/uL (1.8-7.8); NEUTROPHILS % (AUTO) 75 % (42-75); PLATELET COUNT 263 10^3/uL (130-400); WHITE BLOOD COUNT 8.8 10^3/uL (4.3-11.0)
[2021-08-31 07:47] LABS: ALBUMIN 3.6 GM/DL (3.2-4.5); BILIRUBIN,TOTAL 0.6 MG/DL (0.1-1.0); CALCIUM 8.4 MG/DL (8.5-10.1); CREATININE SERUM 1.07 MG/DL (0.60-1.30); POTASSIUM 4.1 MMOL/L (3.6-5.0); TOTAL PROTEIN 6.8 GM/DL (6.4-8.2)
[2021-08-31 07:53] LABS: VANCOMYCIN,TROUGH 20.7 UG/ML (10.0-20.0)
[2021-08-31] MEDS: VANCOMYCIN 2000 MG/NS 500 ML IVPB IV SCH ×2 (07:54)
[2021-08-31 08:22] VITALS: BP 135/59
[2021-08-31] MEDS: VANCOMYCIN 1500 MG/NS 500 ML IVPB IV SCH ×4 (08:28→21:44)
[2021-08-31] MEDS: PRAMIPEXOLE 0.5 MG TAB (MIRAPEX) PO SCH ×3 (08:28→21:45)
[2021-08-31] MEDS: buPROPion SR 150 MG (WELLBUTRIN SR) TAB PO SCH (08:28)
[2021-08-31] MEDS: ENOXAPARIN 40 MG/0.4 ML (LOVENOX) SYR SQ SCH ×2 (08:52→21:50)
[2021-08-31] MEDS: SENNOSIDES 8.6 MG (SENOKOT) TAB PO SCH ×2 (08:52→21:50)
[2021-08-31] MEDS: OXYBUTYNIN (DITROPAN) 5 MG TAB PO SCH ×2 (08:52→21:44)
[2021-08-31] MEDS: DOCUSATE SODIUM 100 MG (COLACE) CAP PO SCH ×2 (08:52→21:50)
[2021-08-31] MEDS ORDERED: NON-FORMULARY MEDICATION 1 EA EA (Bupropion HCl (Bupropion Xl) 150 MG) PO SCH (09:00)
[2021-08-31 12:00] VITALS: BP 107/66
[2021-08-31] MEDS ORDERED: PATIENT MAY USE OWN MED,SINGLE MED PO SCH (14:00)
--- NOTE | 2021-08-31 15:52 | Consultation - Surgery ---
History of Present Illness History of Present Illness Patient Consulted On(amauri/time) 08/31/21 15:47 Time Seen by Provider: 13:22 History of Present Illness Surgery asked to consult regarding right 2nd toe, cellulitis and swelling. HPI per IM: John Jaimes is a 51 year old male with PMH T2DM, HLD, BPH, history of DVT, who presented with toe pain. He has had a callus on his toe for a long time. He has been managing it himself and using a stone to remove the skin. He says he removed too much and made it bleed. He has had redness and swelling for a couple weeks. He was put on an antibiotic but it didn't improve so he came to the ER. He was put on different antibiotics at that time. He hit his foot on a step and it has been worse since then. He denies fevers and chills. He denies nausea and vomiting. He has not seen any discharge. He has been up and walking on it. He denies shortness of breath and cough. He denies chest pain. He denies abdominal pain. He has not been taking diabetic medications for some time. He says that he lost weight and started using medical marijuana and his blood sugars improved. He is following with a doctor in [place]. He has not established with a new doctor since moving here. When I spoke to pt he states that he has MS and had a brain injury; leading to very poor memory. He states this all started "when I shaved down my callus too much". He has been on anti-biotics, with no improvement. Hx of sleep apnea. He states his pain is mildly worse, but he has peripheral neuropathy and chonic pain; with decreased/poor feeling in his feet. Allergies and Home Medications Allergies Coded Allergies: Penicillins (Verified Allergy, Unknown, 08/29/21) Sulfa (Sulfonamide Antibiotics) (Verified Allergy, Unknown, 08/29/21) doxycycline (Verified Allergy, Unknown, Shortness of Breath, 08/30/21) dulaglutide (Verified Allergy, Unknown, 08/30/21) semaglutide (Verified Allergy, Unknown, 08/30/21) Patient Home Medication List Home Medication List Reviewed: Yes Albuterol Sulfate (Proventil Hfa) 90 Mcg Hfa.aer.ad, 1 PUFF INH Q6H PRN for SHORTNESS OF BREATH, (Reported) Entered as Reported by: MONSE CORTEZ on 08/30/211211 Last Action: Held Albuterol Sulfate (Albuterol Sulfate) 2.5 Mg/3 Ml (0.083 %) Vial.neb, 3 ML NEB Q6H PRN for SHORTNESS OF BREATH, (Reported) Entered as Reported by: MONSE CORTEZ on 08/30/211211 Last Action: Held Aspirin (Aspirin EC) 325 Mg Tablet.dr, 325 MG PO DAILY PRN for BLOOD CLOT PREVENTION, (Reported) Entered as Reported by: MONSE CORTEZ on 08/30/211211 Last Action: Held Bupropion HCl (Bupropion Xl) 150 Mg Tab.er.24h, 150 MG PO DAILY, (Reported) Entered as Reported by: MONSE CORTEZ on 08/30/211211 Last Action: Converted Clindamycin HCl (Clindamycin HCl) 300 Mg Capsule, 300 MG PO QID, (Reported) Entered as Reported by: MONSE CORTEZ on 08/30/211211 Last Action: Held Clobetasol Propionate (Clobetasol Propionate) 0.05 % Oint...g., 1 APPLIC TOP BID PRN for BLISTERS/RASH, (Reported) Entered as Reported by: MONSE CORTEZ on 08/30/211211 Last Action: Held Dapagliflozin Propanediol (Farxiga) 10 Mg Tablet, 10 MG PO HS, (Reported) Entered as Reported by: MONSE CORTEZ on 08/30/211211 Last Action: Held Diphenhydramine HCl (Benadryl Allergy) 25 Mg Tablet, 50 MG PO HS, (Reported) Entered as Reported by: MONSE CORTEZ on 08/30/211211 Last Action: Continued Gabapentin Enacarbil (Horizant) 600 Mg Tablet.er, 600 MG PO BID, (Reported) Entered as Reported by: MONSE CORTEZ on 08/30/211211 Last Action: Converted Hydrocodone/Acetaminophen (Hydrocodone-Acetamin 7.5-325) 7.5 Mg-325 Mg Tablet, 1 EA PO TID PRN for PAIN-MODERATE (5-7), (Reported) Entered as Reported by: MONSE CORTEZ on 08/30/211211 Last Action: Held Linaclotide (Linzess) 72 Mcg Capsule, 72 MCG PO DAILY PRN for CONSTIPATION, (Reported) Entered as Reported by: MONSE CORTEZ on 08/30/211211 Last Action: Held Metronidazole (Metronidazole) 500 Mg Tablet, 500 MG PO TID, (Reported) Entered as Reported by: MONSE CORTEZ on 08/30/211211 Last Action: Held Oxybutynin Chloride (Oxybutynin Chloride ER) 10 Mg Tab.er.24, 10 MG PO HS, (Reported) Entered as Reported by: MONSE CORTEZ on 08/30/211211 Last Action: Converted Phentermine HCl (Phentermine HCl) 37.5 Mg Capsule, 37.5 MG PO DAILY PRN for APPETITE CONTROL, (Reported) Entered as Reported by: MONSE CORTEZ on 08/30/211211 Last Action: Held Pramipexole Di-HCl (Pramipexole Dihydrochloride) 1 Mg Tablet, 1 MG PO TID, (Reported) Entered as Reported by: MONSE CORTEZ on 08/30/211211 Last Action: Converted Rosuvastatin Calcium (Rosuvastatin Calcium) 10 Mg Tablet, 10 MG PO HS, (Reported) Entered as Reported by: MONSE CORTEZ on 08/30/211211 Last Action: Continued Sildenafil Citrate (Sildenafil Citrate) 100 Mg Tablet, 50 MG PO DAILY PRN for ED, (Reported) Entered as Reported by: MONSE CORTEZ on 08/30/211211 Last Action: Held Tamsulosin HCl (Flomax) 0.4 Mg Cap, 0.4 MG PO HS, (Reported) Entered as Reported by: MONSE CORTEZ on 08/30/211211 Last Action: Continued Tizanidine HCl (Tizanidine HCl) 4 Mg Tablet, 4 MG PO TID PRN for MUSCLE SPASMS, (Reported) Entered as Reported by: MONSE CORTEZ on 08/30/211211 Last Action: Continued Discontinued Medications Cephalexin (Cephalexin) 500 Mg Capsule, (Reported) Discontinued Reason: No Longer Taking Entered as Reported by: GRACIE ERWIN on 08/24/21 8641 Last Action: Discontinued Clindamycin HCl (Clindamycin HCl) 150 Mg Capsule, 300 MG PO QID Discontinued Reason: No Longer Taking Prescribed by: Amrit Pickens on 08/24/211927 Last Action: Discontinued Metronidazole (Metronidazole) 500 Mg Tablet, 500 MG PO TID Discontinued Reason: No Longer Taking Prescribed by: Amrit Pickens on 08/24/211927 Last Action: Discontinued Oseltamivir Phosphate (Oseltamivir Phosphate) 75 Mg Capsule, 75 MG PO BID Discontinued Reason: No Longer Taking Prescribed by: HOMAR SHEFFIELD on 07/04/20 1433 Past Udgnxjz-Trodtc-Glehvo Hx Patient Social History Smoking Status: Current Everyday Smoker (1ppd (now 3-4 cigarettes and vaping between)) Type Used: Cigarettes 2nd Hand Smoke Exposure: Yes Recent Hopitalizations: No Alcohol Use?: Yes Substance type: Marijuana Have you traveled recently?: No Seasonal Allergies Seasonal Allergies: No Surgeries History of Surgeries: Yes (UMBILICAL HERNIA REPAIR; THROAT SURGERY FOR SLEEP APNEA) Surgeries: Abdominal Respiratory History of Respiratory Disorde: Yes Respiratory Disorders: Asthma, Sleep Apnea Cardiovascular History of Cardiac Disorders: Yes Cardiac Disorders: Chronic Edema/Swelling, Deep Vein Thrombosis, High Cholesterol, Hypertension Neurological History of Neurological Disord: Yes (MEMORY LOSS/POOR MEMORY; PERIPHERAL NEUROPATHY) Neurological Disorders: Multiple Sclerosis, Neuropathy Reproductive System Hx Reproductive Disorders: Yes (E.D.) Genitourinary History of Genitourinary Disor: Yes (BLADDER CONTROL ISSUES; E.D.) Gastrointestinal History of Gastrointestinal Di: Yes (UMBILICAL HERNIA REPAIR) Gastrointestinal Disorders: Chronic Constipation, Chronic Diarrhea, Irritable Bowel Musculoskeletal History of Musculoskeletal Dis: Yes (CHRONIC GENERALIZED PAIN; RESTLESS LEG ) Musculoskeletal Disorders: Chronic Back Pain Endocrine History of Endocrine Disorders: Yes (WAS ON INSULIN, NOW ON FARXIGA; OBESITY) Endocrine Disorders: Diabetes, Non-Insulin dep HEENT History of HEENT Disorders: No (GLASSES) Cancer History of Cancer: No Psychosocial History of Psychiatric Problem: No Integumentary History of Skin or Integumenta: No Blood Transfusions History of Blood Disorders: No Family Medical History Significant Family History: Other Conditions/Hx (Mother takes a "nerve" pill, denies any other medical problems in his family, doesn't know his dad) Review of Systems-General Constitutional: No chills, No fever; weakness EENTM: No mouth pain, No epistaxis Respiratory: No cough, No dyspnea on exertion; short of breath, other (sleep apnea) Cardiovascular: No chest pain; edema; No palpitations Gastrointestinal: No abdominal pain, No nausea, No vomiting Genitourinary: No dysuria, No frequency, No hematuria Musculoskeletal: joint pain, joint swelling, muscle stiffness, muscle cramps Skin: change in color (right foot); No change in hair/nails Psychiatric/Neurological: Paresthesia, Weakness Physical Exam-General Problems Physical Exam Vital Signs Vital Signs - First Documented 08/29/21 08/30/21 22:30 07:52 Temp 36.9 Pulse 94 Resp 18 B/P (MAP) 142/82 (102) Pulse Ox 97 O2 Delivery Room Air FiO2 21 Capillary Refill : General Appearance: no apparent distress, obese Eyes: Bilateral Eye PERRL, Bilateral Eye EOMI HEENT: pharynx normal; No scleral icterus (R), No scleral icterus (L) Neck: non-tender, supple Respiratory: chest non-tender, lungs clear, normal breath sounds, no respiratory distress, no accessory muscle use Cardiovascular: regular rate, rhythm, no murmur Gastrointestinal: soft, no organomegaly, no pulsatile mass Back: no CVA tenderness, no vertebral tenderness Extremities: no pedal edema (left leg), no calf tenderness, inflammation (top of right foot, mostly around 2nd toe), pedal edema (right leg, +2-3 edema with pain on palpation, it is much larger than left leg) Neurologic/Psychiatric: alert, normal mood/affect Skin: normal color, warm/dry Lymphatic: no adenopathy (neck or axilla, ??right inguinal lymph node) Data Review Labs Laboratory Tests 08/30/21 21:05: Glucometer 203H 08/31/21 05:32: Glucometer 128H 08/31/21 07:19: White Blood Count 8.8, Red Blood Count 4.21L, Hemoglobin 12.7L, Hematocrit 39L, Mean Corpuscular Volume 92, Mean Corpuscular Hemoglobin 30, Mean Corpuscular Hemoglobin Concent 33, Red Cell Distribution Width 13.6, Platelet Count 263, Mean Platelet Volume 9.3, Immature Granulocyte % (Auto) 0, Neutrophils (%) (Auto) 75, Lymphocytes (%) (Auto) 14, Monocytes (%) (Auto) 6, Eosinophils (%) (Auto) 5, Basophils (%) (Auto) 1, Neutrophils # (Auto) 6.6, Lymphocytes # (Auto) 1.2, Monocytes # (Auto) 0.5, Eosinophils # (Auto) 0.4H, Basophils # (Auto) 0.1, Immature Granulocyte # (Auto) 0.0, Sodium Level 139, Potassium Level 4.1, Chloride Level 107, Carbon Dioxide Level 23, Anion Gap 9, Blood Urea Nitrogen 13, Creatinine 1.07, Estimat Glomerular Filtration Rate 85, BUN/Creatinine Ratio 12, Glucose Level 124H, Calcium Level 8.4L, Corrected Calcium 8.7, Total Bilirubin 0.6, Aspartate Amino Transf (AST/SGOT) 21, Alanine Aminotransferase (ALT/SGPT) 28, Alkaline Phosphatase 38L, Total Protein 6.8, Albumin 3.6, Vancomycin Level Trough 20.7H 08/31/21 11:21: Glucometer 182H Microbiology 08/29/21 Blood Culture - Preliminary, Resulted No growth Radiology Date of Exam:08/29/21 FOOT, RIGHT, 3 VIEW Clinical indications: Patient complains of wound on second toe right foot. Patient reports he had a callus on the toe a week ago and has been seen here when it came off and left a wound. Toe is red and swollen. EXAM: X-ray right foot, 3 views. COMPARISON: None. FINDINGS: There is soft tissue swelling involving the 2nd digit. There is no soft tissue gas. There is no gross evidence of bony erosive or destructive process. There are hypertrophic calcaneal spurs at the plantar and Achilles attachment. There is spurring of the dorsal midfoot and 1st MTP joint. IMPRESSION: 1: There is soft tissue swelling adjacent to the 2nd digit. There is no soft tissue gas. There is no bony erosive or destructive process. 2: There is degenerative disease in right foot. Dictated by: Dictated on workstation # [id number] Dict: 08/30/21 0606 Trans: 08/30/21 1201 [facility] [id number] Interpreted by: LEBRON ALBERTO MD Electronically signed by: LEBRON ALBERTO MD 08/30/21 1201 Assessment/Plan Assessment/Plan Assessment/Plan Right 2nd Toe Cellulitis r/o Osteomyelitis Edema of right leg Sleep apnea Obesity Pt had X-ray of right foot with no osteomyelitis identified. He has been started on IV ABX and I think he would benefit from an MRI. I discussed this with Dr. [place] and this will be ordered. Pt needs to elevate leg and probably should get a walking boot. CPAP at night for sleep apnea. Max medical management. Clinical Quality Measures DVT/VTE Risk/Contraindication: Contraindications-Mechi: Other *list below* Other: right leg cellulitis KWAME ZAVALA DO Aug 31, 2021 15:52
[2021-08-31 16:00] VITALS: BP 111/74
--- NOTE | 2021-08-31 18:25 | Progress Note - Hospitalist ---
Subjective HPI/CC On Admission Date Seen by Provider: Aug 31, 2021 Time Seen by Provider: 10:35 John Jaimes is a 51 year old male with PMH T2DM, HLD, BPH, history of DVT, who presented with toe pain. He has had a callus on his toe for a long time. He has been managing it himself and using a stone to remove the skin. He says he removed too much and made it bleed. He has had redness and swelling for a couple weeks. He was put on an antibiotic but it didn't improve so he came to the ER. He was put on different antibiotics at that time. He hit his foot on a step and it has been worse since then. He denies fevers and chills. He denies nausea and vomiting. He has not seen any discharge. He has been up and walking on it. He de nies shortness of breath and cough. He denies chest pain. He denies abdominal pain. He has not been taking diabetic medications for some time. He says that he lost weight and started using medical marijuana and his blood sugars improved. He is following with a doctor in [place]. He has not established with a new doctor since moving here. Subjective/Events-last exam He is sitting by the window. He is upset that he is on a diabetic diet. He says he is a regular person and eats regular food. He denies fevers. Focused Exam Lactate Level 08/29/21 23:05: Lactic Acid Level 0.84 Objective Exam Vital Signs Vital Signs Date Time Temp Pulse Resp B/P (MAP) Pulse Ox O2 Delivery O2 Flow Rate FiO2 08/31/21 16:00 36.3 77 20 111/74 (86) 99 Room Air 08/30/21 07:52 21 Capillary Refill : General Appearance: No Apparent Distress, Obese Respiratory: Lungs Clear, No Respiratory Distress Cardiovascular: Regular Rate, Rhythm, No Murmur Gastrointestinal: Normal Bowel Sounds, Soft Extremity: Inflammation (right foot second digit), Swelling Neurologic/Psychiatric: Alert, Other (agitated) Skin: Warm/Dry, Erythema Results/Procedures Lab Laboratory Tests 08/31/21 07:19 Patient resulted labs reviewed. Imaging: Reviewed Imaging Report Assessment/Plan Assessment and Plan Assess & Plan/Chief Complaint Cellulitis of right foot Possible osteomyelitis T2DM with diabetic foot infection IV antibiotics Wound care consult Surgery consulted MRI ordered, reportedly unable to lie flat Levemir Sliding scale insulin Refuses diabetic diet HLD BPH Continue home meds Morbid obesity Clinically significant, no acute management needs DVT prophylaxis: Lovenox Diagnosis/Problems Diagnosis/Problems (1) Cellulitis of right foot Status: Acute (2) T2DM (type 2 diabetes mellitus) Status: Acute Qualifiers: Diabetes mellitus residential insulin use: without terminal carman use Diabetes mellitus complication status: with skin complications (3) Morbid obesity Status: Chronic (4) HLD (hyperlipidemia) Status: Chronic (5) BPH (benign prostatic hyperplasia) Status: Chronic (6) History of DVT (deep vein thrombosis) Status: Chronic Clinical Quality Measures DVT/VTE Risk/Contraindication: Contraindications-Mechi: Other *list below* Other: right leg cellulitis IQRA LR MD Aug 31, 2021 18:25
[2021-08-31 20:00] VITALS: BP 107/71
[2021-08-31] MEDS: TAMSULOSIN 0.4 MG (FLOMAX) CAP PO SCH (21:44)
[2021-08-31] MEDS: ROSUVASTATIN 10 MG (CRESTOR) TABLET PO SCH (21:44)
[2021-08-31] MEDS: ALPRAZolam 0.25 MG (XANAX) TAB PO PRN (21:45)
[2021-08-31] MEDS: diphenhydrAMINE 25 MG TAB (BENADRYL) PO SCH (21:45)
[2021-08-31 23:33] VITALS: BP 107/64
[2021-09-01] MEDS: metroNIDAZOLE 500MG/100ML IVPB 100 ML IV SCH ×3 (02:06→18:31)
[2021-09-01 03:49] VITALS: BP 112/73
[2021-09-01] MEDS: inSUlin ASPART (NovoLOG) 1 UNIT/0.01 ML (CHARGE PER UNIT) SC SCH ×4 (05:20→20:56)
[2021-09-01] MEDS: CEFEPIME INJECTION 1,000 MG in NS (IVPB) 50 ML IV SCH ×4 (05:46→23:41)
[2021-09-01 05:56] LABS: BASOPHILS # (AUTO) 0.1 10^3/uL (0.0-0.1); BASOPHILS % (AUTO) 1 % (0-10); EOSINOPHILS # (AUTO) 0.5 10^3/uL (0.0-0.3); EOSINOPHILS % (AUTO) 5 % (0-10); HEMATOCRIT 38 % (40-54); HEMOGLOBIN 12.5 g/dL (13.3-17.7); LYMPHOCYTES # (AUTO) 1.4 10^3/uL (1.0-4.0); LYMPHOCYTES % (AUTO) 15 % (12-44); MEAN CORPUSCULAR HEMOGLOBIN 30 pg (25-34); MEAN CORPUSCULAR HGB CONC 33 g/dL (32-36); MEAN CORPUSCULAR VOLUME 91 fL (80-99); MEAN PLATELET VOLUME 9.8 fL (9.0-12.2); MONOCYTES # (AUTO) 0.6 10^3/uL (0.0-1.0); MONOCYTES % (AUTO) 6 % (0-12); NEUTROPHILS # (AUTO) 6.5 10^3/uL (1.8-7.8); NEUTROPHILS % (AUTO) 72 % (42-75); PLATELET COUNT 280 10^3/uL (130-400)
[2021-09-01 06:03] LABS: ALBUMIN 3.4 GM/DL (3.2-4.5)
[2021-09-01 06:04] LABS: POTASSIUM 4.6 MMOL/L (3.6-5.0)
[2021-09-01 06:05] LABS: CALCIUM 8.5 MG/DL (8.5-10.1)
[2021-09-01 06:06] LABS: TOTAL PROTEIN 6.7 GM/DL (6.4-8.2)
[2021-09-01 06:08] LABS: BILIRUBIN,TOTAL 0.5 MG/DL (0.1-1.0)
[2021-09-01 06:10] LABS: CREATININE SERUM 1.06 MG/DL (0.60-1.30)
[2021-09-01 08:45] VITALS: BP 115/66
[2021-09-01] MEDS: ENOXAPARIN 40 MG/0.4 ML (LOVENOX) SYR SQ SCH ×2 (08:52→22:08)
[2021-09-01] MEDS: OXYBUTYNIN (DITROPAN) 5 MG TAB PO SCH ×2 (08:53→20:00)
[2021-09-01] MEDS: VANCOMYCIN 1500 MG/NS 500 ML IVPB IV SCH ×4 (08:53→20:01)
[2021-09-01] MEDS: SENNOSIDES 8.6 MG (SENOKOT) TAB PO SCH ×2 (08:53→20:00)
[2021-09-01] MEDS: DOCUSATE SODIUM 100 MG (COLACE) CAP PO SCH ×2 (08:53→20:00)
[2021-09-01] MEDS: buPROPion SR 150 MG (WELLBUTRIN SR) TAB PO SCH (08:54)
[2021-09-01] MEDS: [UNRECOGNIZED DRUG - REMARK] PO SCH ×2 (08:54→20:01)
[2021-09-01] MEDS: PRAMIPEXOLE 0.5 MG TAB (MIRAPEX) PO SCH ×3 (08:56→20:01)
[2021-09-01] MEDS: NS IV 1000 ML 1,000 ML IV SCH ×2 (09:08→20:01)
[2021-09-01 12:11] VITALS: BP 113/66
--- NOTE | 2021-09-01 15:20 | Diagnostic Imaging Report ---
INDICATION: 51-year-old male, right leg swelling, pain. TECHNIQUE: Multiple real-time grayscale images were obtained over the right lower extremity in various projections, bilaterally. Additional duplex Doppler and color Doppler images were also obtained. CORRELATION STUDY: None FINDINGS: Color and grayscale sonographic images demonstrate no intraluminal defect within the visualized portion of the common femoral, superficial femoral and/or popliteal veins to suggest thrombus formation. These vessels demonstrate normal response to compression and augmentation. Lower extremity soft tissue edema is present. IMPRESSION: 1. Negative for deep venous thrombosis of the right leg. Dictated by: Dictated on workstation # [id number]
[2021-09-01 15:30] VITALS: BP 124/56
[2021-09-01] MEDS ORDERED: NYSTATIN ORAL SUSP 5 ML UDC PO NR (15:45)
--- NOTE | 2021-09-01 16:00 | Progress Note - Surgery ---
Subjective Time Seen by a Provider: 11:14 Subjective/Events-last exam Pt seen and examined, states he is about the same no changes. Thinks the toe "might be worse". Review of Systems Pulmonary: No Dyspnea, No Cough; Other (sleep apnea) Cardiovascular: No: Chest Pain, Palpitations Gastrointestinal: No: Nausea, Vomiting Musculoskeletal: foot pain Focused Exam Lactate Level 08/29/21 23:05: Lactic Acid Level 0.84 Objective Exam Vital Signs Date Time Temp Pulse Resp B/P (MAP) Pulse Ox O2 Delivery O2 Flow Rate FiO2 09/01/21 12:11 36.0 75 18 113/66 (82) 98 Room Air 09/01/21 08:45 36.3 68 18 115/66 (82) 99 Room Air 09/01/21 08:00 Room Air 09/01/21 03:49 36.1 64 20 112/73 (86) 100 Room Air 08/31/21 23:33 36.9 75 20 107/64 (78) 98 NIV CPAP 08/31/21 20:00 36.6 75 20 107/71 (83) 99 Room Air 08/31/21 19:42 Room Air 08/31/21 16:00 36.3 77 20 111/74 (86) 99 Room Air I & O 09/01/21 07:00 Intake Total 4540 ml Balance 4540 ml Capillary Refill : General Appearance: No Apparent Distress, Obese HEENT: PERRL/EOMI, Pharynx Normal Respiratory: Lungs Clear, No Respiratory Distress Cardiovascular: Regular Rate, Rhythm, No Murmur Gastrointestinal: soft, no organomegaly, no pulsatile mass Extremity: Inflammation (right foot second digit, no necrotic or purplish tissue and looks about the same as yesterday), Swelling (right leg (about same as yesterday)) Neurologic/Psychiatric: Alert, Other (agitated) Skin: Warm/Dry, Erythema Results Lab Laboratory Tests 08/31/21 16:09: Glucometer 161H 09/01/21 05:16: Glucometer 162H 09/01/21 05:29: White Blood Count 9.0, Red Blood Count 4.14L, Hemoglobin 12.5L, Hematocrit 38L, Mean Corpuscular Volume 91, Mean Corpuscular Hemoglobin 30, Mean Corpuscular Hemoglobin Concent 33, Red Cell Distribution Width 13.5, Platelet Count 280, Mean Platelet Volume 9.8, Immature Granulocyte % (Auto) 0, Neutrophils (%) (Auto) 72, Lymphocytes (%) (Auto) 15, Monocytes (%) (Auto) 6, Eosinophils (%) (Auto) 5, Basophils (%) (Auto) 1, Neutrophils # (Auto) 6.5, Lymphocytes # (Auto) 1.4, Monocytes # (Auto) 0.6, Eosinophils # (Auto) 0.5H, Basophils # (Auto) 0.1, Immature Granulocyte # (Auto) 0.0, Sodium Level 140, Potassium Level 4.6, Chloride Level 107, Carbon Dioxide Level 24, Anion Gap 9, Blood Urea Nitrogen 14, Creatinine 1.06, Estimat Glomerular Filtration Rate 85, BUN/Creatinine Ratio 13, Glucose Level 141H, Calcium Level 8.5, Corrected Calcium 9.0, Total Bilirubin 0.5, Aspartate Amino Transf (AST/SGOT) 22, Alanine Aminotransferase (ALT/SGPT) 31, Alkaline Phosphatase 37L, Total Protein 6.7, Albumin 3.4 09/01/21 11:31: Glucometer 177H Microbiology 08/29/21 Blood Culture - Preliminary, Resulted No growth Assessment/Plan Assessment/Plan Assessment/Plan Right 2nd Toe Cellulitis r/o Osteomyelitis Edema of right leg Sleep apnea Obesity Pt had X-ray of right foot with no osteomyelitis identified; he was unable to lay flat for the MRI and therefore it did not get done. Pt told to continue to elevate leg and probably should get a walking boot. CPAP at night for sleep apnea. Max medical management. Pt stated he just wants to get the toe "cut off, I don't want to lose my leg". I told him we should wait at least another day to see if the ABX work. I don't want to take off a normal toe. I will make him NPO after MN for just in case it looks worse. I am not sure I can get him to wait longer and he could be correct and it would be better for the toe to come off now. Clinical Quality Measures DVT/VTE Risk/Contraindication: Contraindications-Mechi: Other *list below* Other: right leg cellulitis KWAME ZAVALA DO Sep 01, 2021 16:00
--- NOTE | 2021-09-01 16:10 | Diagnostic Imaging Report ---
TECHNIQUE: Multiple real-time grayscale images were obtained over the right lower extremity in various projections. Additional duplex Doppler and color Doppler images were also obtained. HISTORY: Lower extremity wound COMPARISON: None FINDINGS: Right lower extremity: Major arteries of the right leg are patent. No evidence for large vessel occlusion. Scattered areas of a triphasic to biphasic to monophasic waveforms are present. There appears to be prominent triphasic waveforms from the common femoral artery through the popliteal artery becoming prominently monophasic below the tibial peroneal trifurcation. There is no discrete velocity change to suggest a focal area of stenosis. IMPRESSION: 1. Patency of the right lower extremity arterial systems. No evidence for large vessel occlusion. No definitive hemodynamically significant stenosis. However, there appears to be abnormal waveforms below the tibial peroneal trifurcation suggestive of small vessel disease. Dictated by: Dictated on workstation # [id number]
--- NOTE | 2021-09-01 18:06 | Progress Note - Hospitalist ---
Subjective HPI/CC On Admission Date Seen by Provider: Sep 01, 2021 Time Seen by Provider: 10:25 John Jaimes is a 51 year old male with PMH T2DM, HLD, BPH, history of DVT, who presented with toe pain. He has had a callus on his toe for a long time. He has been managing it himself and using a stone to remove the skin. He says he removed too much and made it bleed. He has had redness and swelling for a couple weeks. He was put on an antibiotic but it didn't improve so he came to the ER. He was put on different antibiotics at that time. He hit his foot on a step and it has been worse since then. He denies fevers and chills. He denies nausea and vomiting. He has not seen any discharge. He has been up and walking on it. He de nies shortness of breath and cough. He denies chest pain. He denies abdominal pain. He has not been taking diabetic medications for some time. He says that he lost weight and started using medical marijuana and his blood sugars improved. He is following with a doctor in [place]. He has not established with a new doctor since moving here. Subjective/Events-last exam He has some pain in his mouth. He feels like he is getting thrush. His toe is still swollen. He says he can't feel it. He wants to have it removed. He also wants to be allowed to leave the building. He says he wants to go burn some rosalba and meet his mother in the parking lot. He says she doesn't want to come in because she has leukemia. Focused Exam Lactate Level 08/29/21 23:05: Lactic Acid Level 0.84 Objective Exam Vital Signs Vital Signs Date Time Temp Pulse Resp B/P (MAP) Pulse Ox O2 Delivery O2 Flow Rate FiO2 09/01/21 15:30 36.2 62 20 124/56 (78) 100 Room Air 08/30/21 07:52 21 Capillary Refill : General Appearance: No Apparent Distress, Obese Respiratory: No Respiratory Distress, Decreased Breath Sounds Cardiovascular: Regular Rate, Rhythm, No Murmur Gastrointestinal: Normal Bowel Sounds, Soft, Distended Extremity: Non Tender, Swelling (right > left), Other (right second toe swollen/red/warm) Neurologic/Psychiatric: Alert, Normal Mood/Affect Skin: Normal Color, Warm/Dry Results/Procedures Lab Laboratory Tests 09/01/21 05:29 Patient resulted labs reviewed. Imaging: Reviewed Imaging Report Assessment/Plan Assessment and Plan Assess & Plan/Chief Complaint Cellulitis of right foot Possible osteomyelitis T2DM with diabetic foot infection IV antibiotics Wound care consulted Surgery consulted MRI ordered, unable to lie flat Levemir Sliding scale insulin Refuses diabetic diet Venous dopplers showed no DVT Arterial doppler showed good blood flow in major vessels, some small vessel disease distally HLD BPH Continue home meds Morbid obesity Clinically significant, no acute management needs DVT prophylaxis: Lovenox Diagnosis/Problems Diagnosis/Problems (1) Cellulitis of right foot Status: Acute (2) T2DM (type 2 diabetes mellitus) Status: Acute 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
[2021-09-01] MEDS: NYSTATIN ORAL SUSP 5 ML UDC PO SCH ×2 (18:31→23:42)
[2021-09-01 19:02] VITALS: BP 138/69
[2021-09-01] MEDS: ALPRAZolam 0.25 MG (XANAX) TAB PO PRN (20:00)
[2021-09-01] MEDS: TAMSULOSIN 0.4 MG (FLOMAX) CAP PO SCH (20:00)
[2021-09-01] MEDS: diphenhydrAMINE 25 MG TAB (BENADRYL) PO SCH (20:01)
[2021-09-01] MEDS: ROSUVASTATIN 10 MG (CRESTOR) TABLET PO SCH (20:15)
[2021-09-01 23:16] VITALS: BP 131/60
[2021-09-02] VITALS (11 sets, daily range): BP systolic 87–127; BP diastolic 57–78
[2021-09-02] MEDS: metroNIDAZOLE 500MG/100ML IVPB 100 ML IV SCH ×3 (02:56→17:44)
[2021-09-02] MEDS: CEFEPIME INJECTION 1,000 MG in NS (IVPB) 50 ML IV SCH ×3 (06:10→17:21)
[2021-09-02] MEDS: NYSTATIN ORAL SUSP 5 ML UDC PO SCH ×3 (06:11→17:44)
[2021-09-02] MEDS: inSUlin ASPART (NovoLOG) 1 UNIT/0.01 ML (CHARGE PER UNIT) SC SCH ×4 (06:17→21:50)
[2021-09-02] MEDS: [UNRECOGNIZED DRUG - REMARK] PO SCH ×2 (06:17→17:45)
[2021-09-02 06:51] LABS: BASOPHILS # (AUTO) 0.1 10^3/uL (0.0-0.1); BASOPHILS % (AUTO) 1 % (0-10); EOSINOPHILS # (AUTO) 0.6 10^3/uL (0.0-0.3); EOSINOPHILS % (AUTO) 7 % (0-10); HEMATOCRIT 39 % (40-54); HEMOGLOBIN 12.8 g/dL (13.3-17.7); LYMPHOCYTES # (AUTO) 1.1 10^3/uL (1.0-4.0); LYMPHOCYTES % (AUTO) 13 % (12-44); MEAN CORPUSCULAR HEMOGLOBIN 31 pg (25-34); MEAN CORPUSCULAR HGB CONC 33 g/dL (32-36); MEAN CORPUSCULAR VOLUME 92 fL (80-99); MEAN PLATELET VOLUME 9.2 fL (9.0-12.2); MONOCYTES # (AUTO) 0.6 10^3/uL (0.0-1.0); MONOCYTES % (AUTO) 7 % (0-12); NEUTROPHILS # (AUTO) 6.1 10^3/uL (1.8-7.8); NEUTROPHILS % (AUTO) 72 % (42-75); PLATELET COUNT 266 10^3/uL (130-400); WHITE BLOOD COUNT 8.5 10^3/uL (4.3-11.0)
[2021-09-02 07:04] LABS: CALCIUM 8.5 MG/DL (8.5-10.1)
[2021-09-02 07:09] LABS: CREATININE SERUM 0.95 MG/DL (0.60-1.30)
[2021-09-02 07:29] LABS: ERYTHROCYTE SEDIMENTATION RATE 58 MM/HR (0-30)
[2021-09-02] MEDS: SENNOSIDES 8.6 MG (SENOKOT) TAB PO SCH ×2 (09:20→21:49)
[2021-09-02] MEDS: DOCUSATE SODIUM 100 MG (COLACE) CAP PO SCH ×2 (09:20→21:49)
[2021-09-02] MEDS: buPROPion SR 150 MG (WELLBUTRIN SR) TAB PO SCH (09:20)
[2021-09-02] MEDS: ENOXAPARIN 40 MG/0.4 ML (LOVENOX) SYR SQ SCH ×2 (09:28→21:50)
[2021-09-02] MEDS: OXYBUTYNIN (DITROPAN) 5 MG TAB PO SCH ×2 (09:29→21:49)
[2021-09-02] MEDS: PRAMIPEXOLE 0.5 MG TAB (MIRAPEX) PO SCH ×3 (09:29→21:49)
[2021-09-02] MEDS: VANCOMYCIN 1500 MG/NS 500 ML IVPB IV SCH ×4 (09:29→21:59)
[2021-09-02] MEDS: NS IV 1000 ML 1,000 ML IV SCH ×2 (09:45→16:10)
--- NOTE | 2021-09-02 11:22 | Progress Note - Surgery ---
Subjective Time Seen by a Provider: 11:13 Subjective/Events-last exam Pt seen and examined, no new complaints. States he is not sure if toe is worse today. Review of Systems General: No Chills, No Night Sweats Pulmonary: No Dyspnea, No Cough Cardiovascular: No: Chest Pain, Palpitations Objective Exam Vital Signs Date Time Temp Pulse Resp B/P (MAP) Pulse Ox O2 Delivery O2 Flow Rate FiO2 09/02/21 08:27 36.4 76 19 118/57 (77) 97 Room Air 09/02/21 03:39 36.7 85 20 114/72 (86) 99 Room Air 09/01/21 23:16 36.7 79 20 131/60 (83) 96 Room Air 09/01/21 20:00 Room Air 09/01/21 19:02 36.5 74 20 138/69 (92) 100 Room Air 09/01/21 15:30 36.2 62 20 124/56 (78) 100 Room Air 09/01/21 12:11 36.0 75 18 113/66 (82) 98 Room Air I & O 09/02/21 07:00 Intake Total 1975 ml Balance 1975 ml Capillary Refill : General Appearance: No Apparent Distress, Obese HEENT: PERRL/EOMI, Pharynx Normal Respiratory: No Respiratory Distress, Decreased Breath Sounds Cardiovascular: Regular Rate, Rhythm, No Murmur Extremity: Non Tender, Swelling (right > left.....??slightly better than yesteday), Other (right second toe swollen/red/warm and now appears to have abscess at distal portion) Neurologic/Psychiatric: Alert, Normal Mood/Affect Results Lab Laboratory Tests 09/01/21 11:31: Glucometer 177H 09/01/21 20:44: Glucometer 169H 09/02/21 05:17: Glucometer 203H 09/02/21 06:39: White Blood Count 8.5, Red Blood Count 4.20L, Hemoglobin 12.8L, Hematocrit 39L, Mean Corpuscular Volume 92, Mean Corpuscular Hemoglobin 31, Mean Corpuscular Hemoglobin Concent 33, Red Cell Distribution Width 13.6, Platelet Count 266, Mean Platelet Volume 9.2, Immature Granulocyte % (Auto) 1, Neutrophils (%) (Auto) 72, Lymphocytes (%) (Auto) 13, Monocytes (%) (Auto) 7, Eosinophils (%) (Auto) 7, Basophils (%) (Auto) 1, Neutrophils # (Auto) 6.1, Lymphocytes # (Auto) 1.1, Monocytes # (Auto) 0.6, Eosinophils # (Auto) 0.6H, Basophils # (Auto) 0.1, Immature Granulocyte # (Auto) 0.1, Erythrocyte Sedimentation Rate 58H, Sodium Level 138, Potassium Level 4.0, Chloride Level 106, Carbon Dioxide Level 23, Anion Gap 9, Blood Urea Nitrogen 12, Creatinine 0.95, Estimat Glomerular Filtration Rate 98, BUN/Creatinine Ratio 13, Glucose Level 147H, Calcium Level 8.5, C-Reactive Protein High Sensitivity 3.37H Microbiology 08/29/21 Blood Culture - Preliminary, Resulted No growth Assessment/Plan Assessment/Plan Assessment/Plan Right 2nd Toe Cellulitis r/o Osteomyelitis Edema of right leg Sleep apnea Obesity Pt's toe is not better, in fact it is worse and now I think it is reasonable to remove the toe; ABX have not seemed to work. He is NPO and will get consent for right second toe amputation and plan for surgery today. Clinical Quality Measures DVT/VTE Risk/Contraindication: Contraindications-Mechi: Other *list below* Other: right leg cellulitis KWAME ZAVALA DO Sep 02, 2021 11:22
[2021-09-02] MEDS ORDERED: LIDOCAINE/EPI 2% 1:200,00 (XYLOCAINE) 20 ML VIAL ONE (13:43)
[2021-09-02] MEDS ORDERED: LIDOCAINE 1% INJ 20 ML VIAL ONE (13:43)
[2021-09-02] MEDS ORDERED: fentaNYL INJ 100 MCG/2 ML AMP ONE (13:57)
[2021-09-02] MEDS ORDERED: MIDAZOLAM 2 MG/2 ML (VERSED) VIAL ONE (13:57)
[2021-09-02] MEDS ORDERED: PROPOFOL INJECTION 50 ML IV ONE (14:01)
[2021-09-02] MEDS ORDERED: PHENYLEPHRINE 100 MCG/ML 10 ML (ANESTHESIA) SYR ONE (14:27)
[2021-09-02] MEDS ORDERED: SEVOFLURANE (ULTANE) 15 ML INHAL SOLN ONE (14:32)
[2021-09-02] MEDS ORDERED: LACTATED RINGERS 1,000 ML IV PRN (14:45)
--- NOTE | 2021-09-02 14:56 | Progress Note-Post Operative ---
Post-Operative Progess Note Surgeon (s)/Development System Efficiency Manager (s) Surgeon KWAME ZAVALA DO Development System Efficiency Manager: none Pre-Operative Diagnosis cellulitis r/o abscess Post-Operative Diagnosis same pending path Procedure & Operative Findings Date of Procedure 09/02/21 Procedure Performed/Findings Amputation of right foot second digit Anesthesia Type LMA Estimated Blood Loss Estimated blood loss (mL): less than 10ml Specimens/Packing Specimens Removed right 2nd toe KWAME ZAVALA DO Sep 02, 2021 14:56
[2021-09-02] MEDS ORDERED: HYDROmorphone 2 MG/ML VIAL (DILAUDID) IV ONE (15:00)
[2021-09-02] MEDS ORDERED: ONDANSETRON 4 MG/2 ML (SDV) Z0FRAN IVP PRN (15:00)
--- NOTE | 2021-09-02 16:45 | Progress Note - Hospitalist ---
Subjective HPI/CC On Admission Date Seen by Provider: Sep 02, 2021 Time Seen by Provider: 11:30 John Jaimes is a 51 year old male with PMH T2DM, HLD, BPH, history of DVT, who presented with toe pain. He has had a callus on his toe for a long time. He has been managing it himself and using a stone to remove the skin. He says he removed too much and made it bleed. He has had redness and swelling for a couple weeks. He was put on an antibiotic but it didn't improve so he came to the ER. He was put on different antibiotics at that time. He hit his foot on a step and it has been worse since then. He denies fevers and chills. He denies nausea and vomiting. He has not seen any discharge. He has been up and walking on it. He de nies shortness of breath and cough. He denies chest pain. He denies abdominal pain. He has not been taking diabetic medications for some time. He says that he lost weight and started using medical marijuana and his blood sugars improved. He is following with a doctor in [place]. He has not established with a new doctor since moving here. Subjective/Events-last exam He is ready to have his surgery. He wants a hamburger when he is done. He has no complaints or concerns. Objective Exam Vital Signs Vital Signs Date Time Temp Pulse Resp B/P (MAP) Pulse Ox O2 Delivery O2 Flow Rate FiO2 09/02/21 16:13 36.2 71 18 121/65 (83) 97 Room Air 09/02/21 15:00 2 08/30/21 07:52 21 Capillary Refill : General Appearance: No Apparent Distress, Obese Respiratory: Lungs Clear, No Respiratory Distress Cardiovascular: Regular Rate, Rhythm, No Murmur Gastrointestinal: Normal Bowel Sounds, Soft, Distended Extremity: Inflammation, Pedal Edema, Swelling Neurologic/Psychiatric: Alert, Normal Mood/Affect Skin: Other (right second toe erythema and swelling) Results/Procedures Lab Laboratory Tests 09/02/21 06:39 Patient resulted labs reviewed. Imaging: Reviewed Imaging Report Assessment/Plan Assessment and Plan Assess & Plan/Chief Complaint Cellulitis of right foot Possible osteomyelitis T2DM with diabetic foot infection IV antibiotics Wound care following Surgery following, planning for amputation of right second toe today Levemir Sliding scale insulin HLD BPH Continue home meds Morbid obesity Clinically significant, no acute management needs DVT prophylaxis: Lovenox Diagnosis/Problems Diagnosis/Problems (1) Cellulitis of right foot Status: Acute (2) T2DM (type 2 diabetes mellitus) Status: Acute Qualifiers: Diabetes mellitus oysterman insulin use: without oysterman use Diabetes mellitus complication status: with skin complications (3) Morbid obesity Status: Chronic (4) HLD (hyperlipidemia) Status: Chronic (5) BPH (benign prostatic hyperplasia) Status: Chronic (6) History of DVT (deep vein thrombosis) Status: Chronic Clinical Quality Measures DVT/VTE Risk/Contraindication: Contraindications-Mechi: Other *list below* Other: right leg cellulitis IQRA LR MD Sep 02, 2021 16:45
[2021-09-02] MEDS: ROSUVASTATIN 10 MG (CRESTOR) TABLET PO SCH (21:49)
[2021-09-02] MEDS: TAMSULOSIN 0.4 MG (FLOMAX) CAP PO SCH (21:49)
[2021-09-02] MEDS: diphenhydrAMINE 25 MG TAB (BENADRYL) PO SCH (21:49)
[2021-09-03] MEDS: NYSTATIN ORAL SUSP 5 ML UDC PO SCH ×5 (00:34→17:20)
[2021-09-03] MEDS: CEFEPIME INJECTION 1,000 MG in NS (IVPB) 50 ML IV SCH ×3 (00:34→11:53)
[2021-09-03] MEDS: metroNIDAZOLE 500MG/100ML IVPB 100 ML IV SCH ×2 (02:29→11:53)
--- NOTE | 2021-09-03 02:53 | OPERATIVE REPORT ---
DATE OF SERVICE: 09/02/2021 PREOPERATIVE DIAGNOSIS: Right second toe cellulitis, abscess, rule out osteomyelitis. POSTOPERATIVE DIAGNOSIS: Right second toe cellulitis, abscess, rule out osteomyelitis, pending pathology. PROCEDURE: Amputation of right second toe at the MTP joint. SURGEON: Les Martin DO SHOT POLISHER AND INSPECTOR: None. ANESTHESIA: LMA with a foot malleolar blocks as well as a toe block, right second toe down to the metatarsophalangeal joint. BLOOD LOSS: Less than 10 mL. FLUIDS: Per anesthesia. POSTOPERATIVE CONDITION: Stable. INDICATION FOR PROCEDURE: The patient is a 51-year-old male who has a right second toe, had cellulitis, looked like it may possibly be an abscess at the bottom of the toes, was kind of getting a "mushy, unable to do an MRI to confirm or just prove osteomyelitis." Toe was getting worse and the patient wanted to get the toe removed until so that he did not run the risk of losing his leg. He did understand that we could be taken off normal toe that could get better with longer IV antibiotics. FINDINGS: The patient had a right second toe removed and sent to pathology. PROCEDURE NOTE: After informed consent was obtained, the patient was brought to the operating room, placed on the operating table in supine position, sterilely prepped and draped in normal fashion. A malleolar block medial and lateral was performed and then infiltrated around the toe with local lidocaine with epinephrine, then made an incision around the second toe with a Bovie electrocautery, carried down through the skin into subcutaneous tissue, then deepened down to subcutaneous tissue along the phalangeal along the distal phalanges and down to the metatarsal head cutting the toe off at this point, removing the toe and the bone, passed this off table and sent to pathology. Copiously irrigated with normal saline. Hemostasis was obtained using Bovie electrocautery and then packed the incision with half-inch iodoform packing. Area was cleaned and dried, pressure dressing placed. The patient tolerated the procedure. Sponge, instrument and needle count correct at the end of the case. He was sent to recovery room in stable condition. Job ID: [id number] DocumentID: [id number] Dictated Date: 09/02/2021 17:39:23 Hopper Filler Date: 09/03/2021 02:52:50 Dictated By: LES MARTIN DO
[2021-09-03 04:39] VITALS: BP 124/63
[2021-09-03 05:53] LABS: BASOPHILS # (AUTO) 0.1 10^3/uL (0.0-0.1); BASOPHILS % (AUTO) 1 % (0-10); EOSINOPHILS # (AUTO) 0.6 10^3/uL (0.0-0.3); EOSINOPHILS % (AUTO) 8 % (0-10); HEMATOCRIT 39 % (40-54); HEMOGLOBIN 12.9 g/dL (13.3-17.7); LYMPHOCYTES # (AUTO) 1.2 10^3/uL (1.0-4.0); LYMPHOCYTES % (AUTO) 15 % (12-44); MEAN CORPUSCULAR HEMOGLOBIN 30 pg (25-34); MEAN CORPUSCULAR HGB CONC 33 g/dL (32-36); MEAN CORPUSCULAR VOLUME 92 fL (80-99); MEAN PLATELET VOLUME 9.7 fL (9.0-12.2); MONOCYTES # (AUTO) 0.6 10^3/uL (0.0-1.0); MONOCYTES % (AUTO) 8 % (0-12); NEUTROPHILS # (AUTO) 5.6 10^3/uL (1.8-7.8); NEUTROPHILS % (AUTO) 68 % (42-75); PLATELET COUNT 277 10^3/uL (130-400); WHITE BLOOD COUNT 8.1 10^3/uL (4.3-11.0)
[2021-09-03 06:11] LABS: POTASSIUM 4.1 MMOL/L (3.6-5.0)
[2021-09-03 06:12] LABS: CALCIUM 8.8 MG/DL (8.5-10.1)
[2021-09-03 06:16] LABS: CREATININE SERUM 1.07 MG/DL (0.60-1.30)
[2021-09-03] MEDS: [UNRECOGNIZED DRUG - REMARK] PO SCH ×2 (06:35→17:20)
[2021-09-03] MEDS: inSUlin ASPART (NovoLOG) 1 UNIT/0.01 ML (CHARGE PER UNIT) SC SCH ×4 (06:35→20:14)
[2021-09-03 07:36] VITALS: BP 111/55
[2021-09-03] MEDS: SENNOSIDES 8.6 MG (SENOKOT) TAB PO SCH ×2 (08:22→20:11)
[2021-09-03] MEDS: buPROPion SR 150 MG (WELLBUTRIN SR) TAB PO SCH (08:22)
[2021-09-03] MEDS: PRAMIPEXOLE 0.5 MG TAB (MIRAPEX) PO SCH ×3 (08:22→20:10)
[2021-09-03] MEDS: OXYBUTYNIN (DITROPAN) 5 MG TAB PO SCH ×2 (08:22→20:11)
[2021-09-03] MEDS: ENOXAPARIN 40 MG/0.4 ML (LOVENOX) SYR SQ SCH ×2 (08:22→20:11)
[2021-09-03] MEDS: DOCUSATE SODIUM 100 MG (COLACE) CAP PO SCH ×2 (08:22→20:10)
[2021-09-03 11:12] VITALS: BP 133/66
[2021-09-03] MEDS: NS IV 1000 ML 1,000 ML IV SCH (11:38)
--- NOTE | 2021-09-03 12:50 | Anesthesia-General Post-Op ---
General Patient Condition Mental Status/LOC: Same as Preop Cardiovascular: Satisfactory Nausea/Vomiting: Absent Respiratory: Satisfactory Pain: Controlled Complications: Absent Post Op Complications Complications None Follow Up Care/Instructions Patient Instructions None needed. Anesthesia/Patient Condition Patient Condition Patient is doing well, no complaints, stable vital signs, no apparent adverse anesthesia problems. No complications reported per nursing. MATTY NICOLE CRNA Sep 03, 2021 12:50
--- NOTE | 2021-09-03 12:54 | Progress Note - Surgery ---
Subjective Time Seen by a Provider: 12:06 Subjective/Events-last exam Pt seen and examined, states "the bandage popped off". He reports much less pain in his foot today and thinks the swelling has also gone down. Review of Systems Pulmonary: No Dyspnea, No Cough Cardiovascular: No: Chest Pain, Palpitations Gastrointestinal: No: Nausea, Vomiting Objective Exam Vital Signs Date Time Temp Pulse Resp B/P (MAP) Pulse Ox O2 Delivery O2 Flow Rate FiO2 09/03/21 11:12 36.2 65 18 133/66 (88) 98 Room Air 09/03/21 08:00 Room Air 09/03/21 07:36 35.9 66 20 111/55 (73) 99 Room Air 09/03/21 04:39 36.8 60 16 124/63 (83) 98 Room Air 09/02/21 23:42 36.3 78 20 127/60 (82) 99 Room Air 09/02/21 22:24 36.1 09/02/21 21:54 36.1 09/02/21 20:00 Room Air 09/02/21 19:43 36.1 67 18 121/62 (81) 100 NIV CPAP 09/02/21 19:27 36.2 71 97 21 09/02/21 16:13 36.2 71 18 121/65 (83) 97 Room Air 09/02/21 15:13 Room Air 09/02/21 15:10 36.9 16 118/68 (85) 95 Room Air 09/02/21 15:00 OxyMask 2 09/02/21 15:00 15 101/64 (76) 97 OxyMask 2 09/02/21 14:50 14 101/60 (74) 96 OxyMask 4 09/02/21 14:44 OxyMask 6 09/02/21 14:44 36.2 16 87/66 (73) 98 OxyMask 6 I & O 09/03/21 07:00 Intake Total 1110 ml Output Total 2000 ml Balance -890 ml Capillary Refill : General Appearance: No Apparent Distress, Obese HEENT: PERRL/EOMI, Pharynx Normal Respiratory: Lungs Clear, No Respiratory Distress Cardiovascular: Regular Rate, Rhythm, No Murmur Extremity: Pedal Edema (about the same, but above the ankle the swelling appears improved), Other (no redness around incision site, packed with iodophor and really no erythema in the foot above the toes (which is improved)) Neurologic/Psychiatric: Alert, Normal Mood/Affect Skin: Other (right second toe erythema and swelling) Results Lab Laboratory Tests 09/02/21 15:39: Glucometer 143H 09/02/21 20:12: Glucometer 201H 09/03/21 05:02: Glucometer 182H 09/03/21 05:04: White Blood Count 8.1, Red Blood Count 4.28L, Hemoglobin 12.9L, Hematocrit 39L, Mean Corpuscular Volume 92, Mean Corpuscular Hemoglobin 30, Mean Corpuscular Hemoglobin Concent 33, Red Cell Distribution Width 13.8, Platelet Count 277, M jennifer Platelet Volume 9.7, Immature Granulocyte % (Auto) 1, Neutrophils (%) (Auto) 68, Lymphocytes (%) (Auto) 15, Monocytes (%) (Auto) 8, Eosinophils (%) (Auto) 8, Basophils (%) (Auto) 1, Neutrophils # (Auto) 5.6, Lymphocytes # (Auto) 1.2, Monocytes # (Auto) 0.6, Eosinophils # (Auto) 0.6H, Basophils # (Auto) 0.1, Immature Granulocyte # (Auto) 0.1, Sodium Level 139, Potassium Level 4.1, Chloride Level 103, Carbon Dioxide Level 26, Anion Gap 10, Blood Urea Nitrogen 12, Creatinine 1.07, Estimat Glomerular Filtration Rate 85, BUN/Creatinine Ratio 11, Glucose Level 179H, Calcium Level 8.8 09/03/21 11:13: Glucometer 237H Microbiology 09/02/21 MRSA Screen - Final, Complete MRSA not isolated 08/29/21 Blood Culture - Preliminary, Resulted No growth Assessment/Plan Assessment/Plan Assessment/Plan S/P Amputation of Right 2nd Toe Edema of right leg - improved Sleep apnea Obesity Will await pathology of toe, pt ok to eat. Will have PT see and get pt a walking boot. [facility]. Will change iodophor tomorrow. Clinical Quality Measures DVT/VTE Risk/Contraindication: Contraindications-Mechi: Other *list below* Other: right leg cellulitis KWAME ZAVALA DO Sep 03, 2021 12:53
[2021-09-03 16:00] VITALS: BP 142/68
[2021-09-03] MEDS: AUGMENTIN 875 MG TAB (AMOXICILLIN/CLAVULANATE) PO SCH (17:20)
[2021-09-03] MEDS: ALPRAZolam 0.25 MG (XANAX) TAB PO PRN (17:58)
--- NOTE | 2021-09-03 19:53 | Progress Note - Hospitalist ---
Subjective HPI/CC On Admission Date Seen by Provider: Sep 03, 2021 Time Seen by Provider: 11:10 John Jaimes is a 51 year old male with PMH T2DM, HLD, BPH, history of DVT, who presented with toe pain. He has had a callus on his toe for a long time. He has been managing it himself and using a stone to remove the skin. He says he removed too much and made it bleed. He has had redness and swelling for a couple weeks. He was put on an antibiotic but it didn't improve so he came to the ER. He was put on different antibiotics at that time. He hit his foot on a step and it has been worse since then. He denies fevers and chills. He denies nausea and vomiting. He has not seen any discharge. He has been up and walking on it. He de nies shortness of breath and cough. He denies chest pain. He denies abdominal pain. He has not been taking diabetic medications for some time. He says that he lost weight and started using medical marijuana and his blood sugars improved. He is following with a doctor in [place]. He has not established with a new doctor since moving here. Subjective/Events-last exam He is feeling better. His pain is improved. He has no complaints. Objective Exam Vital Signs Vital Signs Date Time Temp Pulse Resp B/P (MAP) Pulse Ox O2 Delivery O2 Flow Rate FiO2 09/03/21 16:00 36.7 63 18 142/68 (92) 98 Room Air 09/02/21 19:27 21 09/02/21 15:00 2 Capillary Refill : General Appearance: No Apparent Distress, Obese Respiratory: Lungs Clear, No Respiratory Distress Cardiovascular: Regular Rate, Rhythm, No Murmur Gastrointestinal: Normal Bowel Sounds, Soft Extremity: No Inflammation; Pedal Edema, Swelling Neurologic/Psychiatric: Alert, Normal Mood/Affect Skin: Normal Color, Warm/Dry Results/Procedures Lab Laboratory Tests 09/03/21 05:04 Patient resulted labs reviewed. Imaging: Reviewed Imaging Report Assessment/Plan Assessment and Plan Assess & Plan/Chief Complaint Cellulitis of right foot Possible osteomyelitis T2DM with diabetic foot infection Surgery following s/p toe amputation Wound care following Transition to oral antibiotics Levemir Sliding scale insulin HLD BPH Continue home meds Morbid obesity Clinically significant, no acute management needs DVT prophylaxis: Lovenox Diagnosis/Problems Diagnosis/Problems (1) Cellulitis of right foot Status: Acute (2) T2DM (type 2 diabetes mellitus) Status: Acute Qualifiers: Diabetes mellitus terminal clerk insulin use: without terminal clerk use Diabetes mellitus complication status: with skin complications (3) Morbid obesity Status: Chronic (4) HLD (hyperlipidemia) Status: Chronic (5) BPH (benign prostatic hyperplasia) Status: Chronic (6) History of DVT (deep vein thrombosis) Status: Chronic Clinical Quality Measures DVT/VTE Risk/Contraindication: Contraindications-Mechi: Other *list below* Other: right leg cellulitis IQRA LR MD Sep 03, 2021 19:53
[2021-09-03] MEDS: diphenhydrAMINE 25 MG TAB (BENADRYL) PO SCH (20:10)
[2021-09-03] MEDS: ROSUVASTATIN 10 MG (CRESTOR) TABLET PO SCH (20:11)
[2021-09-03] MEDS: TAMSULOSIN 0.4 MG (FLOMAX) CAP PO SCH (20:11)
[2021-09-03 20:47] VITALS: BP 142/68
[2021-09-04] VITALS: BP 137/82
[2021-09-04] MEDS: NYSTATIN ORAL SUSP 5 ML UDC PO SCH ×3 (00:19→11:26)
[2021-09-04 04:00] VITALS: BP 116/65
[2021-09-04] MEDS: inSUlin ASPART (NovoLOG) 1 UNIT/0.01 ML (CHARGE PER UNIT) SC SCH ×2 (06:07→11:26)
[2021-09-04 07:13] LABS: BASOPHILS # (AUTO) 0.1 10^3/uL (0.0-0.1); BASOPHILS % (AUTO) 1 % (0-10); EOSINOPHILS # (AUTO) 0.6 10^3/uL (0.0-0.3); EOSINOPHILS % (AUTO) 7 % (0-10); HEMATOCRIT 41 % (40-54); HEMOGLOBIN 13.3 g/dL (13.3-17.7); LYMPHOCYTES # (AUTO) 1.3 10^3/uL (1.0-4.0); LYMPHOCYTES % (AUTO) 16 % (12-44); MEAN CORPUSCULAR HEMOGLOBIN 30 pg (25-34); MEAN CORPUSCULAR HGB CONC 32 g/dL (32-36); MEAN CORPUSCULAR VOLUME 93 fL (80-99); MEAN PLATELET VOLUME 9.2 fL (9.0-12.2); MONOCYTES # (AUTO) 0.5 10^3/uL (0.0-1.0); MONOCYTES % (AUTO) 6 % (0-12); NEUTROPHILS # (AUTO) 5.6 10^3/uL (1.8-7.8); NEUTROPHILS % (AUTO) 69 % (42-75); PLATELET COUNT 275 10^3/uL (130-400); WHITE BLOOD COUNT 8.2 10^3/uL (4.3-11.0)
[2021-09-04 07:23] LABS: POTASSIUM 4.1 MMOL/L (3.6-5.0)
[2021-09-04 07:24] LABS: CALCIUM 8.9 MG/DL (8.5-10.1)
[2021-09-04 07:28] LABS: CREATININE SERUM 1.1 MG/DL (0.60-1.30)
[2021-09-04] MEDS: [UNRECOGNIZED DRUG - REMARK] PO SCH (07:39)
[2021-09-04 07:46] VITALS: BP 141/84
[2021-09-04] MEDS: PRAMIPEXOLE 0.5 MG TAB (MIRAPEX) PO SCH ×2 (08:34→14:05)
[2021-09-04] MEDS: OXYBUTYNIN (DITROPAN) 5 MG TAB PO SCH (08:34)
[2021-09-04] MEDS: ENOXAPARIN 40 MG/0.4 ML (LOVENOX) SYR SQ SCH (08:34)
[2021-09-04] MEDS: buPROPion SR 150 MG (WELLBUTRIN SR) TAB PO SCH (08:34)
[2021-09-04] MEDS: SENNOSIDES 8.6 MG (SENOKOT) TAB PO SCH (08:34)
[2021-09-04] MEDS: DOCUSATE SODIUM 100 MG (COLACE) CAP PO SCH (08:34)
[2021-09-04] MEDS: AUGMENTIN 875 MG TAB (AMOXICILLIN/CLAVULANATE) PO SCH (08:34)
[2021-09-04 10:48] VITALS: BP 129/62
[2021-09-04 11:07] VITALS: BP 129/62
--- NOTE | 2021-09-04 13:38 | Discharge Inst-Surgical ---
Discharge Inst-Surgical Depart Medication/Instructions New, Converted or Re-Newed RX: Other (resume home meds) Patient Instructions Follow up Appt: Make appointment for this week on . [phone] Instructions: No lifting greater than 20 pounds. No strenuous activity. May shower in 24 hours, no tub bath or soaking. Use incentive spirometer at home as directed. No Smoking Skin/Wound Care: May remove bandages in am. You need to change packing daily and can wash area with warm soapy water. Symptoms to Report: Appetite Changes, Extremity Discoloration, Numbness/Tingling, Swelling Increased, Bleeding Excessive, Eyesight Changes, Pain Increased, Urine Color Change, Constipation(Persistent), Fever over 101 degree F, Pain/Pressure in ch est, Urinating Difficulty, Cough Up/Vomit Blood, Heart Beat Irreg/Pounding, Pain/Pressure in jaw, Cramps in feet or legs, Lightheadedness, Pain/Pressure in shoulder, Diarrhea(Persistent), Memory Changes Suddenly, Questions/Concerns, Weight gain consecutive days, Dizziness/Fainting, Nausea/Vomiting, Shortness of Breath, Weight gain over 2 pounds If questions or concerns contact your physician Or seek help at emergency department. Activity Activity as Tolerated: Yes Walking Assistive Device: Cane Driving Instructions: No Driving/Refer to Dr. Hansen Discharge Diet: ADA Diet Diet After 24 Hours: Clear Liquid if Nauseous If Any Problems/Questions/Issu: Contact Your Physician, Go to Emergency Room Skin/Wound Care Infection Signs and Symptoms: Increased Redness, Foul Odor of Wound, Increased Drainage, Skin Itchy or Has a Rash, Increased Swelling, Temperature Above 101 F Operative Area Clean and Dry: Keep Incision Clean/Dry, You May Remove Bandage KWAME ZAVALA DO Sep 04, 2021 13:38
--- NOTE | 2021-09-04 13:40 | Progress Note - Surgery ---
Subjective Time Seen by a Provider: 12:37 Subjective/Events-last exam Pt seen and examined, walking around in his room with a cane. States he feels good and wants to go home. Review of Systems Pulmonary: No Dyspnea, No Cough Cardiovascular: No: Chest Pain, Palpitations Objective Exam Vital Signs Date Time Temp Pulse Resp B/P (MAP) Pulse Ox O2 Delivery O2 Flow Rate FiO2 09/04/21 11:07 36.8 79 18 129/62 (84) 98 Room Air 09/04/21 10:48 36.8 79 18 129/62 (84) 98 Room Air 09/04/21 08:00 Room Air 09/04/21 07:46 36.4 84 20 141/84 (103) 98 Room Air 09/04/21 04:00 36.1 84 18 116/65 (82) 97 Room Air 09/04/21 00:00 36.7 80 17 137/82 (100) 97 Room Air 09/03/21 20:47 36.7 105 20 142/68 (92) 99 Room Air 09/03/21 20:00 Room Air 09/03/21 16:00 36.7 63 18 142/68 (92) 98 Room Air I & O 09/04/21 06:59 Intake Total 2320 ml Balance 2320 ml Capillary Refill : General Appearance: No Apparent Distress, Obese HEENT: PERRL/EOMI, Pharynx Normal Respiratory: Lungs Clear, No Respiratory Distress Cardiovascular: Regular Rate, Rhythm, No Murmur Extremity: No Inflammation; Pedal Edema, Swelling (about same as yesterday) Neurologic/Psychiatric: Alert, Normal Mood/Affect Results Lab Laboratory Tests 09/03/21 16:01: Glucometer 172H 09/03/21 20:05: Glucometer 169H 09/04/21 05:39: Glucometer 167H 09/04/21 07:03: White Blood Count 8.2, Red Blood Count 4.43, Hemoglobin 13.3, Hematocrit 41, Mean Corpuscular Volume 93, Mean Corpuscular Hemoglobin 30, Mean Corpuscular Hemoglobin Concent 32, Red Cell Distribution Width 13.6, Platelet Count 275, Mean Platelet Volume 9.2, Immature Granulocyte % (Auto) 1, Neutrophils (%) (Auto) 69, Lymphocytes (%) (Auto) 16, Monocytes (%) (Auto) 6, Eosinophils (%) (Auto) 7, Basophils (%) (Auto) 1, Neutrophils # (Auto) 5.6, Lymphocytes # (Auto) 1.3, Monocytes # (Auto) 0.5, Eosinophils # (Auto) 0.6H, Basophils # (Auto) 0.1, Immature Granulocyte # (Auto) 0.1, Sodium Level 134L, Potassium Level 4.1, Chloride Level 99, Carbon Dioxide Level 25, Anion Gap 10, Blood Urea Nitrogen 15, Creatinine 1.10, Estimat Glomerular Filtration Rate 82, BUN/Creatinine Ratio 14, Glucose Level 155H, Calcium Level 8.9 09/04/21 10:46: Glucometer 192H Microbiology 09/02/21 MRSA Screen - Final, Complete MRSA not isolated 08/29/21 Blood Culture - Preliminary, Resulted No growth Assessment/Plan Assessment/Plan Assessment/Plan S/P Amputation of Right 2nd Toe Edema of right leg - improved Sleep apnea Obesity Will teach pt how to pack wound and d/c him home. Finish off ABX given before admission and restart home meds. Clinical Quality Measures DVT/VTE Risk/Contraindication: Contraindications-Mechi: Other *list below* Other: right leg cellulitis KWAME ZAVALA DO Sep 04, 2021 13:40
[2021-09-04 14:25] VITALS: BP 129/62
== END 2021-09-04 14:15 | disposition home or self-care (01) | DRG 617 ==
LOC: EDUNIT# 22:17 → ER 22:20 → 4TH 08-30 06:02 → EDLOC 08-30 06:02 → 4TH 08-31 10:26
PROVIDERS: ADMIT Internal Medicine; ATTEND Internal Medicine
PROC: 5A09357 Assistance with Respiratory Ventilation, Less than 24 Consecutive Hours, Continuous Positive Airway Pressure (ICD-10-PCS; 2021-09-02)
PROC: 0Y6R0Z0 Detachment at Right 2nd Toe, Complete, Open Approach (ICD-10-PCS; principal; 2021-09-02 14:06)
DX: E11.621 Type 2 diabetes mellitus with foot ulcer (principal); L03.115 Cellulitis of right lower limb; L02.611 Cutaneous abscess of right foot; Z68.42 Body mass index [BMI] 45.0-49.9, adult; L97.519 Non-pressure chronic ulcer of other part of right foot with unspecified severity; I89.0 Lymphedema, not elsewhere classified; F17.210 Nicotine dependence, cigarettes, uncomplicated; E11.628 Type 2 diabetes mellitus with other skin complications; N40.0 Benign prostatic hyperplasia without lower urinary tract symptoms; Z86.718 Personal history of other venous thrombosis and embolism; G47.30 Sleep apnea, unspecified; J45.909 Unspecified asthma, uncomplicated; E78.00 Pure hypercholesterolemia, unspecified; I10 Essential (primary) hypertension; G35 Multiple sclerosis; E11.40 Type 2 diabetes mellitus with diabetic neuropathy, unspecified; G89.29 Other chronic pain; M54.9 Dorsalgia, unspecified; K58.9 Irritable bowel syndrome, unspecified; E66.01 Morbid (severe) obesity due to excess calories; Z79.82 Long term (current) use of aspirin; Z79.899 Other long term (current) drug therapy; L03.031 Cellulitis of right toe
CPT/HCPCS: 36415; 73630; 80048; 80053; 80202; 81000; 82010; 82550; 82553; 82947; 83036; 83605; 83735; 83874; 83880; 85025; 85379; 85610; 85652; 85730; 86141; 87040; 87081; 93926; 96365; 96366; 96375

== ENCOUNTER → 2021-09-21 | Outpatient (CLI) | payer MEDICARE ==
[~2021-09-21] MED LIST changes: +ALBU2.5V4 NEB; +ALBU6.7H8 INH; +ASPI325T32 PO; +BUPR150T24 PO; +CLIN-144 PO; +CLOB15OI2 TOP; +DAPA10TA PO; +DIPH25TA65 PO; +GABA-726 PO; +HYDR-3817 PO; +LINA72CA PO; +OXYB10TA29 PO; +PHEN-483 PO; +PRAM1TAB5 PO; +ROSU10TA28 PO; +SILD100T67 PO; +TIZA-186 PO; +TMSL.4C PO
--- NOTE | 2021-09-21 13:25 | Diagnostic Imaging Report ---
PROCEDURE: US right lower extremity venous. TECHNIQUE: Multiple real-time grayscale images were obtained over the right lower extremity in various projections. Additional spectral analysis and color Doppler duplex images were also obtained. INDICATION: Right foot swelling. There is no evidence of right lower extremity DVT. Right lower extremity deep venous system shows normal compressibility with normal response to augmentation and Valsalva. No fluid collection or mass is detected. IMPRESSION: No evidence of right lower extremity DVT. Dictated by: Dictated on workstation # [id number]
== END ==
LOC: RAD 10:17
PROVIDERS: ATTEND Nurse Practitioner
DX: M79.89 Other specified soft tissue disorders (principal)

== ENCOUNTER → 2021-12-07 | Outpatient (CLI) | payer MEDICARE ==
[~2021-12-07] MED LIST changes: +ALBU6.7H13 INH; -ALBU6.7H8 INH
== END ==
LOC: WOUNDCARE 13:40
PROVIDERS: ATTEND Family Medicine
DX: I89.0 Lymphedema, not elsewhere classified (principal); T87.89 Other complications of amputation stump; E11.9 Type 2 diabetes mellitus without complications; T65.292A Toxic effect of other tobacco and nicotine, intentional self-harm, initial encounter; I70.201 Unspecified atherosclerosis of native arteries of extremities, right leg; E66.01 Morbid (severe) obesity due to excess calories
CPT/HCPCS: 99213

== ENCOUNTER → 2021-12-21 | Outpatient (CLI) | payer MEDICARE ==
[~2021-12-21] MED LIST changes: +GADOTERATE 0.5 MMOL/ML (CLARISCAN) 20 ML VIAL IV ONE
--- NOTE | 2021-12-21 15:44 | Diagnostic Imaging Report ---
EXAM: MRI right foot without and with intravenous contrast. DATE: December 21, 2021. INDICATION: 51-year-old male, right foot pain. Concern for osteomyelitis. COMPARISON: Right foot radiographs August 29, 2021. TECHNIQUE: Multiple pre and post contrast MRI sequences of the foot were obtained. FINDINGS: There is absence of the second digit phalanges. There is extensive abnormal T1 marrow signal loss on the second metatarsal with bone deformity and bone loss. The marrow signal abnormalities in the second metatarsal extend to the proximal articulating surface. This is consistent with extensive osteomyelitis of the second metatarsal throughout its entire extent. There is no sizable joint effusion. There is no evidence of osteomyelitis at the level of the cuneiforms or cuboid or otherwise additionally present in the included [id number]. There is extensive abnormal enhancement surrounding the second metatarsal. There is a dorsal skin defect on axial post contrast series 12 image 24 and adjacent sequential images. There is no separately identified focal drainable fluid collection or abscess. There is a relative lack of enhancement and low signal between the second and third metatarsal heads. There is no evidence of tenosynovitis. There is fatty atrophy of the imaged musculature which may reflect polyneuropathy. IMPRESSION: 1. Osteomyelitis involving the entire extent of the second metatarsal. 2. No evidence of septic arthritis or tenosynovitis. 3. Prominent abnormal contrast enhancement in the soft tissue surrounding the second metatarsal without identified focal drainable fluid collection or abscess. Dictated by: Dictated on workstation # [id number]
== END ==
LOC: RAD 14:18
DX: L03.115 Cellulitis of right lower limb (principal)
CPT/HCPCS: 73720

== ENCOUNTER 2021-12-28 05:33 | Outpatient (CLI) | payer MEDICARE ==
[~2021-12-28] VITALS: Ht 167.7 cm; Wt 127.3 kg
[~2021-12-28 05:33] MED LIST changes: -GADOTERATE 0.5 MMOL/ML (CLARISCAN) 20 ML VIAL IV ONE
[2022-01-02] MEDS ORDERED: HYDR-3817 PO (11:17)
[2022-01-02] MEDS ORDERED: CLIN150C2 PO ×2 (11:17→11:18)
== END 2021-12-29 10:33 | disposition home or self-care (01) ==
LOC: PREOP 05:33
PROVIDERS: ATTEND Podiatrist Foot & Ankle Surgery
DX: Z01.818 Encounter for other preprocedural examination (principal)

== ENCOUNTER 2022-01-02 08:07 | Day surgery (SDC) | payer MEDICARE ==
[2022-01-02] VITALS (12 sets, daily range): BP systolic 70–119; BP diastolic 27–80
[~2022-01-02] VITALS: Ht 167.7 cm; Wt 127.3 kg
[2022-01-02] MEDS ORDERED: ceFAZolin INJECTION 1,000 MG in NS (IVPB) 50 ML IV ONE (08:15)
[2022-01-02] MEDS ORDERED: FAMOTIDINE 20MG/2ML IV (PEPCID) IVP ONE (08:45)
[2022-01-02] MEDS: LACTATED RINGERS 1,000 ML IV PRN ×2 (08:47→11:24)
[2022-01-02] MEDS ORDERED: MIDAZOLAM 2 MG/2 ML (VERSED) VIAL IVP ONE (09:15)
[2022-01-02] MEDS ORDERED: BUPIVACAINE 0.5% 30 ML (SENSORCAINE) VIAL ONE (09:25)
[2022-01-02] MEDS ORDERED: LIDOCAINE 1% INJ 10 ML VIAL ONE (09:25)
[2022-01-02] MEDS ORDERED: MIDAZOLAM 2 MG/2 ML (VERSED) VIAL ONE (09:27)
[2022-01-02] MEDS ORDERED: SEVOFLURANE (ULTANE) 15 ML INHAL SOLN ONE ×2 (09:31→11:01)
[2022-01-02] MEDS ORDERED: LIDOCAINE PF 2% 5 ML (XYLOCAINE) VIAL ONE (09:31)
[2022-01-02] MEDS ORDERED: proPOfol 200 MG/20 ML (DIPRIVAN) VIAL IV ONE (09:31)
[2022-01-02] MEDS ORDERED: fentaNYL INJ 100 MCG/2 ML AMP ONE (09:31)
--- NOTE | 2022-01-02 09:34 | Progress Note-Pre Operative ---
Pre-Operative Progress Note Date of Available H&P: Jan 02, 2022 Date H&P Reviewed: Jan 02, 2022 Time H&P Reviewed: 09:33 Pre-Operative Diagnosis: Osteomyelitis of the right 2nd metatarsal MARITO GORDON DPM Jan 02, 2022 09:34
--- NOTE | 2022-01-02 11:11 | Progress Note-Post Operative ---
Post-Operative Progess Note Surgeon (s)/Reference Archivist (s) Surgeon MARITO GORDON DPM Reference Archivist: None Pre-Operative Diagnosis Osteomyelitis of the right 2nd metatarsal Post-Operative Diagnosis Same Procedure & Operative Findings Date of Procedure 01/02/22 Procedure Performed/Findings Amputation of right 2nd Metatarsal Anesthesia Type General Estimated Blood Loss Estimated blood loss (mL): 30 Specimens/Packing Specimens Removed Right 2nd metatarsal Packing: Iodoform MARITO GORDON DPM Jan 02, 2022 11:11
[2022-01-02] MEDS ORDERED: CLIN150C2 PO ×5 (11:17→11:18)
[2022-01-02] MEDS ORDERED: HYDR-3817 PO ×2 (11:17)
[2022-01-02] MEDS ORDERED: PHENYLEPHRINE 100 MCG/ML 10 ML (ANESTHESIA) SYR ONE (11:18)
[2022-01-02] MEDS ORDERED: LACTATED RINGERS 1,000 ML IV ONE (11:20)
--- NOTE | 2022-01-02 11:24 | Anesthesia-General Post-Op ---
General Patient Condition Mental Status/LOC: Same as Preop Cardiovascular: Satisfactory Nausea/Vomiting: Absent Respiratory: Satisfactory Pain: Controlled Complications: Absent Post Op Complications Complications None Follow Up Care/Instructions Patient Instructions None needed. Anesthesia/Patient Condition Patient Condition Patient is doing well, no complaints, stable vital signs, no apparent adverse anesthesia problems. No complications reported per nursing. SHON HOLCOMB CRNA Jan 02, 2022 11:24
[2022-01-02] MEDS ORDERED: PROMETHAZINE INJ 25 MG/ML (PHENERGAN) AMP IVP ONE (11:30)
[2022-01-02] MEDS ORDERED: ONDANSETRON 4 MG/2 ML (SDV) Z0FRAN IVP PRN (11:30)
[2022-01-02] MEDS ORDERED: HYDROmorphone 2 MG/ML VIAL (DILAUDID) IV ONE (11:30)
[2022-01-02] MEDS ORDERED: morphine INJ 10 MG/ML 1ML (SYR OR VIAL) IVP ONE (11:30)
[2022-01-02] MEDS ORDERED: HYDROcodone/APAP 7.5 MG/325 MG (LORTAB, LORCET PLUS) TABLET PO ONE (12:30)
--- NOTE | 2022-01-02 13:42 | Physical Therapy Ortho Eval ---
PT Orthopedic Evaluation Type of Surgery Prior Level of Function Current Living Status: Significant Other Locomotion (Upon Admit): Independent Established Durable Medical Eq: Front Wheeled Walker, Crutches Subjective Subjective Patient lying supine in bed upon PT arrival, finace in room, both agreeable to treatment. Patient rates pain at 5/10 in right foot/toe. Steps Into Home: 2 Steps Inside Home: 0 Steps Accessories: No Railing Motor Control Motor Control: Motor Control WNL ROM ROM: WFL, except focal deficit Strength Strength: WFL Nurse reports patient has multiple sclerosis Transfer SCALE: Activities may be completed with or without assistive devices. 7-Bkkduvfgbf-kzubshd completes the activity by him/herself with no assistance from a helper. 5-Set-up or Clean-up Assistance-helper sets up or cleans up; patient completes activity. [place] assists only prior to or following the activity. 4-Supervision or Touching Assistance-helper provides verbal cues and/or touching/steadying and/or contact guard assistance as patient completes activi ty. Assistance may be provided throughout the activity or intermittently. 3-Partial/Moderate Assistance-helper does LESS THAN HALF the effort. [place] lifts, holds or supports trunk or limbs, but provides less than half the effort. 2-Substantial/Maximal Assistance-helper does MORE THAN HALF the effort. [place] lifts or holds trunk or limbs and provides more than half the effort. 3-Ufwzoahre-psfwnu does ALL the effort. Patient does none of the effort to complete the activity. Or, the assistance of 2 or more helpers is required for the patient to complete the activity. If activity was not attempted, code reason: 7-Patient Refused. 9-Not Applicable-not attempted and the patient did not perform the activity before the current illness, exacerbation or injury. 10-Not Attempted due to Environmental Limitations-(lack of equipment, weather restraints, etc.). 88-Not Attempted due to Medical Conditions or Safety Concerns. Transfers (B, C, W/C) (QC): 4 Gait Gait Assistive Device: Crutches Right Lower Extremity: Right Weight Bearing Status RLE: Non Weight Bearing Distance (QC): 1=up to 49 ft Distance: 20 Gait Level of Assist: 3 Treatment Rendered Treatment: Gait Train, Step Train Assessment/Goals Goal Time Frame: 1 Visit Safe Ambulation: Yes Patient is still groggy from anesthesia. He also wants to raise the crutches higher than he safely should. He was educated on the anatomical reasoning for not allowing the pads of the Axillary crutches to compress the axillary region, however reports "thats how I do it at home." Impulsive on the step and balance is Fair (-). Plan Treatment Plan: Discharge PT/Family Agrees to Plan: Yes Time Time In: 1315 Time Out: 1330 Total Billed Treatment Time: 15 Billed Treatment Time Visit, COSTA Cho PT Jan 02, 2022 13:42
--- NOTE | 2022-01-02 21:56 | OPERATIVE REPORT ---
DATE OF SERVICE: 01/02/2022 SURGEON: Christine Gordon DPM. PREOPERATIVE DIAGNOSIS: Osteomyelitis, right second metatarsal. POSTOPERATIVE DIAGNOSIS: Osteomyelitis, right second metatarsal. PROCEDURE: Amputation of right second metatarsal. WOUND CLASS: Contaminated. ANESTHESIA: General. HEMOSTASIS: Pneumatic ankle tourniquet at 250 mmHg. INDICATIONS: This 51-year-old male presents having a chronic wound to the right second toe, which was amputated. The remaining wound had some delay in healing per report from the patient. Subsequent x-rays and MRI indicated osteomyelitis of the right second metatarsal. Conservative and surgical options were discussed with the patient at length, and he is agreeable to surgical intervention after risks and complications were discussed at length. No guarantees were extended to the patient and he is willing to proceed. DESCRIPTION OF PROCEDURE: The patient was brought back to the operating room table, placed in secure supine position. Appropriate timeout was performed. General anesthetic was then induced. Pneumatic ankle tourniquet was placed on the right lower extremity over several layers of padding. The right foot was then prepped and draped in normal sterile manner. The right foot was then elevated, allowed to exsanguinate after which the tourniquet was inflated to 250 mmHg. Attention was then directed to the dorsal aspect of the right second ray where there is approximately 10 cm longitudinal linear incision. Blunt dissection was carried out down to the periosteum utilizing a combination of sharp and blunt dissection as well as cautery. The distal portion of the right second metatarsal was removed. Utilizing a power sagittal saw, the proximal portion of the metatarsal was from the distal. The reason I do this is to separate what I felt was the obvious involvement of osteomyelitis to the distal second metatarsal. There is a distinction in the amount of periosteal reaction and bone integrity at the proximal portion. I went ahead and cut this portion and a sample of the distal second metatarsal bone was sent for culture and sensitivity; the rest was sent for pathology. Next, utilizing a power sagittal saw and blunt and sharp dissection, the proximal portion of the second metatarsal was removed. This was also sent for pathological evaluation microscopic and gross. There were no significant abnormalities noted to the remaining wound. There was no purulence, no necrosis identified. Cautery was performed to the common plantar artery. The wound was flushed with copious amounts of normal saline under power irrigation 3000 was utilized with normal saline. The tourniquet was dropped and there was one active bleeder inferior aspect of the wound, which was cauterized. Next, a 1-inch iodoform packing was placed into the wound followed by sterile 4 x 4, sterile Kerlix, ABDs and a Kerlix wrap secured with Coban wrap. The patient tolerated the anesthesia and procedure well and was transported from the operating room to the recovery room with vital signs stable and vascular status intact to all remaining digits of the right foot. The patient is to be nonweightbearing on the right lower extremity. He understands he is going to follow up with wound care for the next several days and weeks. Assuming that this is a clean wound depending on what the cultures come back like. Prior to the packing, a post-wash swab culture was taken. We may have a good opportunity for delayed primary closure for this particular patient. Job ID: [id number] DocumentID: [id number] Dictated Date: 01/02/2022 11:27:22 Quail Farmer Date: 01/02/2022 21:55:30 Dictated By: CHRISTINE GORDON DPM
== END 2022-01-02 13:40 | disposition home or self-care (01) ==
LOC: SDC 08:07
PROVIDERS: ATTEND Podiatrist Foot & Ankle Surgery
DX: E11.69 Type 2 diabetes mellitus with other specified complication (principal); M86.171 Other acute osteomyelitis, right ankle and foot; M86.671 Other chronic osteomyelitis, right ankle and foot; M87.9 Osteonecrosis, unspecified; K21.9 Gastro-esophageal reflux disease without esophagitis; E66.01 Morbid (severe) obesity due to excess calories; F17.200 Nicotine dependence, unspecified, uncomplicated; Z68.42 Body mass index [BMI] 45.0-49.9, adult; Z79.82 Long term (current) use of aspirin; Z79.899 Other long term (current) drug therapy; Z79.2 Long term (current) use of antibiotics; Z79.84 Long term (current) use of oral hypoglycemic drugs
CPT/HCPCS: 82947; 87070; 87075; 87077; 87081; 87186; 87205

== ENCOUNTER 2022-01-02 15:14 | Emergency (ER) | payer MEDICARE ==
[~2022-01-02] VITALS: Ht 167.7 cm; Wt 127.0 kg
[~2022-01-02 15:14] MED LIST changes: +CLIN150C2 PO
--- NOTE | 2022-01-02 15:42 | ED Lower Extremity ---
General Chief Complaint: Lower Extremity Nursing Triage Note: PT ARRIVED POV, PT HAD HIS 2ND TOE ON THE RIGHT FOOT AMPUTATED THIS MORNING. PT BLEED THROUGH BANDAGE. PULSES PRESENT. Source: patient Exam Limitations: physical impairment (h/o MS - poor memory) History of Present Illness Date Seen by Provider: Jan 02, 2022 Time Seen by Provider: 15:23 Initial Comments 51-year-old male history of multiple sclerosis, diabetes with recent osteomyelitis in the right foot underwent metatarsal removal on the right foot today by Dr. Gordon. He was discharged about an hour ago and when he went home he stepped with the right foot awkwardly and noted a significant amount of bleeding in the bandage. He had only been at home a short while and he decided to come back to the emergency department. No pain at this time. Wound dressing is removed, no significant bleeding noted at the surgical site. Pulses are intact. Vital signs are stable. Onset: just prior to arrival Severity: moderate Pain/Injury Location: right foot Method of Injury: other (stepped wrong) Allergies and Home Medications Allergies Coded Allergies: Penicillins (Verified Allergy, Unknown, CHILD/, 12/29/21) Sulfa (Sulfonamide Antibiotics) (Verified Allergy, Unknown, LIPS/PENIS SWELLING, 12/29/21) doxycycline (Verified Allergy, Unknown, Shortness of Breath, 08/30/21) dulaglutide (Verified Allergy, Unknown, DIGESTIVE ISSUES, 12/29/21) semaglutide (Verified Allergy, Unknown, DIGESTIVE ISSUES, 12/29/21) Patient Home Medication List Home Medication List Reviewed: Yes Albuterol Sulfate (Proventil Hfa) 90 Mcg Hfa.aer.ad, 1 PUFF INH Q6H PRN for SHORTNESS OF BREATH, (Reported) Entered as Reported by: MONSE CORTEZ on 08/30/21 1212 Albuterol Sulfate (Albuterol Sulfate) 2.5 Mg/3 Ml (0.083 %) Vial.neb, 3 ML NEB Q6H PRN for SHORTNESS OF BREATH, (Reported) Entered as Reported by: MONSE CORTEZ on 08/30/21 121 Aspirin (Aspirin EC) 325 Mg Tablet.dr, 325 MG PO DAILY PRN for BLOOD CLOT PREVE NTION, (Reported) Entered as Reported by: MONSE CORTEZ on 08/30/21 1212 Bupropion HCl (Bupropion Xl) 150 Mg Tab.er.24h, 150 MG PO DAILY, (Reported) Entered as Reported by: MONSE CORTEZ on 08/30/21 121 Clindamycin HCl (Cleocin HCl) 150 Mg Capsule, 1 CAP PO QID Prescribed by: MARITO GORDON on 01/02/22 1117 Clobetasol Propionate (Clobetasol Propionate) 0.05 % Oint...g., 1 APPLIC TOP BID PRN for BLISTERS/RASH, (Reported) Entered as Reported by: MONSE CORTEZ on 08/30/21 121 Dapagliflozin Propanediol (Farxiga) 10 Mg Tablet, 10 MG PO HS, (Reported) Entered as Reported by: MONSE CORTEZ on 08/30/21 121 Diphenhydramine HCl (Benadryl Allergy) 25 Mg Tablet, 50 MG PO HS, (Reported) Entered as Reported by: MONSE CORTEZ on 08/30/21 121 Gabapentin Enacarbil (Horizant) 600 Mg Tablet.er, 600 MG PO BID, (Reported) Entered as Reported by: MONSE CORTEZ on 08/30/21 121 Hydrocodone/Acetaminophen (Hydrocodone-Acetamin 7.5-325) 7.5 Mg-325 Mg Tablet, 1 EA PO TID PRN for PAIN-MODERATE (5-7), (Reported) Entered as Reported by: MONSE CORTEZ on 08/30/21 121 Hydrocodone/Acetaminophen (Hydrocodone-Acetamin 7.5-325) 7.5 Mg-325 Mg Tablet, 1 EACH PO Q6H Prescribed by: MARITO GORDON on 01/02/22 1118 Linaclotide (Linzess) 72 Mcg Capsule, 72 MCG PO DAILY PRN for CONSTIPATION, (Reported) Entered as Reported by: MONSE CORTEZ on 08/30/21 121 Oxybutynin Chloride (Oxybutynin Chloride ER) 10 Mg Tab.er.24, 10 MG PO HS, (Reported) Entered as Reported by: MONSE CORTEZ on 08/30/21 121 Phentermine HCl (Phentermine HCl) 37.5 Mg Capsule, 37.5 MG PO DAILY PRN for APPETITE CONTROL, (Reported) Entered as Reported by: MONSE CORTEZ on 08/30/211211 Pramipexole Di-HCl (Pramipexole Dihydrochloride) 1 Mg Tablet, 1 MG PO TID, (Reported) Entered as Reported by: MONSE CORTEZ on 08/30/211211 Rosuvastatin Calcium (Rosuvastatin Calcium) 10 Mg Tablet, 10 MG PO HS, (Reported) Entered as Reported by: MONSE CORTEZ on 08/30/211211 Sildenafil Citrate (Sildenafil Citrate) 100 Mg Tablet, 50 MG PO DAILY PRN for ED, (Reported) Entered as Reported by: MONSE CORTEZ on 08/30/211211 Tamsulosin HCl (Flomax) 0.4 Mg Cap, 0.4 MG PO HS, (Reported) Entered as Reported by: MONSE CORTEZ on 08/30/211211 Tizanidine HCl (Tizanidine HCl) 4 Mg Tablet, 4 MG PO TID PRN for MUSCLE SPASMS, (Reported) Entered as Reported by: MONSE CORTEZ on 08/30/211211 Discontinued Medications Clindamycin HCl (Clindamycin HCl) 300 Mg Capsule, 300 MG PO QID, (Reported) Entered as Reported by: MONSE CORTEZ on 08/30/211211 Metronidazole (Metronidazole) 500 Mg Tablet, 500 MG PO TID, (Reported) Discontinued Reason: No Longer Taking Entered as Reported by: MONSE CORTEZ on 08/30/211211 Review of Systems Constitutional: see HPI Respiratory: no symptoms reported Cardiovascular: no symptoms reported Musculoskeletal: other (surgical wound) Skin: other (bleeding from surgical wound) Past Fqmshml-Unwbzq-Awbawz Hx Patient Social History Tobacco Use?: No Smoking Status: Former Smoker Substance use?: Yes Substance type: Marijuana Alcohol Use?: No Immunizations Up To Date Tetanus Booster (TDap): Unknown Seasonal Allergies Seasonal Allergies: Yes Past Medical History Surgery/Hospitalization HX: MS, DM2, SLEEP APNEA, NEUROPATHY, FIBROMYALGIA Surgeries: Yes (UMBILICAL HERNIA REPAIR; THROAT SURGERY FOR SLEEP APNEA, 2ND TOE RIGHT) Abdominal Respiratory: Yes Asthma, Sleep Apnea Currently Using CPAP: No Currently Using BIPAP: No Cardiac: Yes Chronic Edema/Swelling, Deep Vein Thrombosis, High Cholesterol, Hypertension Neurological: Yes (MEMORY LOSS/POOR MEMORY; PERIPHERAL NEUROPATHY) Multiple Sclerosis, Neuropathy Reproductive Disorders: Yes (E.D.) Genitourinary: Yes (BLADDER CONTROL ISSUES; E.D.) Kidney Stones Gastrointestinal: Yes (UMBILICAL HERNIA REPAIR) Chronic Constipation, Chronic Diarrhea, Irritable Bowel Musculoskeletal: Yes (CHRONIC GENERALIZED PAIN; RESTLESS LEG ) Chronic Back Pain Endocrine: Yes (WAS ON INSULIN, NOW ON FARXIGA; OBESITY) Diabetes, Non-Insulin dep HEENT: No (GLASSES) Cancer: No Psychosocial: Yes Anxiety, Depression Integumentary: No Blood Disorders: No Family Medical History Other Conditions/Hx SOCIAL HISTORY: -SMOKES 1 PPD, PT ALSO VAPES NICOTINE DAILY -DENIES ETOH USE -DENIES DRUG USE PAST SURGICAL HISTORY: -UMBILICAL HERNIA REPAIR -THROAT SURGERY FOR SLEEP APNEA Physical Exam Vital Signs Vital Signs - First Documented 01/02/22 15:15 Temp 35.9 Pulse 96 B/P (MAP) 140/87 (104) Pulse Ox 98 O2 Delivery Room Air Capillary Refill : Height, Weight, BMI Height: '" Weight: lbs. oz. kg; 45.00 BMI Method: General Appearance: WD/WN, no apparent distress HEENT: PERRL/EOMI Cardiovascular: regular rate, rhythm Respiratory: lungs clear, normal breath sounds, no respiratory distress, no accessory muscle use Ankles: right ankle swelling Feet: right foot other (Surgical wound overlying the second metatarsal of the dorsum of the right foot. Lots of packing in place. Minimal oozing noted from the surgical site. He has intact posterior tibial and dorsalis pedis pulses. The toes of the foot however a little bit pale. Normal temperature.) Neurologic/Psychiatric: alert, normal mood/affect, oriented x 3 Skin: normal color, warm/dry Progress/Results/Core Measures Results/Orders Lab Results Laboratory Tests Test 01/02/22 15:40 Range/Units White Blood Count 10.5 4.3-11.0 10^3/uL Red Blood Count 4.58 4.30-5.52 10^6/uL Hemoglobin 13.9 13.3-17.7 g/dL Hematocrit 41 40-54 % Mean Corpuscular Volume 90 80-99 fL Mean Corpuscular Hemoglobin 30 25-34 pg Mean Corpuscular Hemoglobin Concent 34 32-36 g/dL Red Cell Distribution Width 15.0 H 10.0-14.5 % Platelet Count 202 130-400 10^3/uL Mean Platelet Volume 8.5 L 9.0-12.2 fL Immature Granulocyte % (Auto) 1 % Neutrophils (%) (Auto) 73 42-75 % Lymphocytes (%) (Auto) 14 12-44 % Monocytes (%) (Auto) 6 0-12 % Eosinophils (%) (Auto) 6 0-10 % Basophils (%) (Auto) 1 0-10 % Neutrophils # (Auto) 6.8 1.8-7.8 X 10^3 Lymphocytes # (Auto) 1.3 1.0-4.0 X 10^3 Monocytes # (Auto) 0.6 0.0-1.0 X 10^3 Eosinophils # (Auto) 0.6 H 0.0-0.3 10^3/uL Basophils # (Auto) 0.1 0.0-0.1 10^3/uL Immature Granulocyte # (Auto) 0.1 0.0-0.1 10^3/uL My Orders Orders - ALBERT JOAQUIN MD Cbc With Automated Diff (01/02/22 15:42) Vital Signs/I&O 01/02/22 15:15 Temp 35.9 Pulse 96 B/P (MAP) 140/87 (104) Pulse Ox 98 O2 Delivery Room Air Blood Pressure Mean: 104 Progress Progress Note : Time: 16:34 Progress Note No significant bleeding has occurred throughout the length of his ED visit. The surgical wound has oozed a little dark blood. His toes remain warm and pink. His hemoglobin is stable. His vital signs are stable. Xeroform gauze placed over the surgical wound, followed by 4 x 4's, followed by 2 ABD pads Kerlix dressing and then some Coban. I told the patient to monitor his foot for worsening swelling, numbness tingling or pallor. I have given him a couple of dressings for any return of bleeding that may occur. He is advised to come back to the emergency room if he becomes lightheaded, dizzy or soaks the dressing again. His family members verbalized understanding. All questions are sought and answered. Patient is stable for discharge. Departure Impression Primary Impression: Postoperative wound hemorrhage Disposition: 01 HOME, SELF-CARE Condition: Improved Departure-Patient Inst. Decision time for Depature: 16:37 Referrals: NO,LOCAL PHYSICIAN (PCP/Family) Primary Care Physician Patient Instructions: Bleeding After Surgery Add. Discharge Instructions: Keep your right foot elevated to keep the swelling down. Watch your toes for signs of swelling, getting to pale, painful or cold or any other emergent concerning symptoms. Follow-up with Dr. Gordon as instructed. Return to the emergency room for any new, concerning or emergent complaints. ALBERT JOAQUIN MD Jan 02, 2022 15:42
[2022-01-02 15:50] LABS: BASOPHILS # (AUTO) 0.1 10^3/uL (0.0-0.1); BASOPHILS % (AUTO) 1 % (0-10); EOSINOPHILS # (AUTO) 0.6 10^3/uL (0.0-0.3); EOSINOPHILS % (AUTO) 6 % (0-10); LYMPHOCYTES # (AUTO) 1.3 X 10^3 (1.0-4.0); LYMPHOCYTES % (AUTO) 14 % (12-44); MEAN CORPUSCULAR HGB CONC 34 g/dL (32-36); MEAN CORPUSCULAR VOLUME 90 fL (80-99); MEAN PLATELET VOLUME 8.5 fL (9.0-12.2); MONOCYTES # (AUTO) 0.6 X 10^3 (0.0-1.0); MONOCYTES % (AUTO) 6 % (0-12); NEUTROPHILS # (AUTO) 6.8 X 10^3 (1.8-7.8); NEUTROPHILS % (AUTO) 73 % (42-75)
[2022-01-02 15:57] LABS: HEMATOCRIT 41 % (40-54); HEMOGLOBIN 13.9 g/dL (13.3-17.7); MEAN CORPUSCULAR HEMOGLOBIN 30 pg (25-34); PLATELET COUNT 202 10^3/uL (130-400); WHITE BLOOD COUNT 10.5 10^3/uL (4.3-11.0)
[2022-01-02 16:56] VITALS: BP 101/62
== END 2022-01-02 16:56 | disposition home or self-care (01) ==
LOC: EDUNIT# 15:14 → ER 15:15
DX: L76.22 Postprocedural hemorrhage of skin and subcutaneous tissue following other procedure (principal); E66.9 Obesity, unspecified; F17.210 Nicotine dependence, cigarettes, uncomplicated; Z68.42 Body mass index [BMI] 45.0-49.9, adult; Z28.310 Unvaccinated for COVID-19
CPT/HCPCS: 36415; 85025

== ENCOUNTER → 2022-01-04 | Outpatient (CLI) | payer MEDICARE ==
[~2022-01-04] MED LIST changes: +LNZ600T PO
== END ==
LOC: WOUNDCARE 08:56
PROVIDERS: ATTEND Family Medicine
DX: I89.0 Lymphedema, not elsewhere classified (principal); I96 Gangrene, not elsewhere classified; T65.292A Toxic effect of other tobacco and nicotine, intentional self-harm, initial encounter; I70.201 Unspecified atherosclerosis of native arteries of extremities, right leg; E66.01 Morbid (severe) obesity due to excess calories; T81.31XA Disruption of external operation (surgical) wound, not elsewhere classified, initial encounter; M86.171 Other acute osteomyelitis, right ankle and foot; E11.621 Type 2 diabetes mellitus with foot ulcer; B95.62 Methicillin resistant Staphylococcus aureus infection as the cause of diseases classified elsewhere; E11.40 Type 2 diabetes mellitus with diabetic neuropathy, unspecified; E11.52 Type 2 diabetes mellitus with diabetic peripheral angiopathy with gangrene; Z68.41 Body mass index [BMI] 40.0-44.9, adult
CPT/HCPCS: 99212

== ENCOUNTER 2022-01-05 22:18 | Emergency (ER) | payer MEDICARE ==
[~2022-01-05 22:18] MED LIST changes: -LNZ600T PO
[2022-01-05 23:18] LABS: BASOPHILS # (AUTO) 0.1 10^3/uL (0.0-0.1); BASOPHILS % (AUTO) 1 % (0-10); EOSINOPHILS # (AUTO) 0.9 10^3/uL (0.0-0.3); EOSINOPHILS % (AUTO) 8 % (0-10); HEMATOCRIT 41 % (40-54); HEMOGLOBIN 13.7 g/dL (13.3-17.7); LYMPHOCYTES # (AUTO) 1.4 10^3/uL (1.0-4.0); LYMPHOCYTES % (AUTO) 13 % (12-44); MEAN CORPUSCULAR HEMOGLOBIN 30 pg (25-34); MEAN CORPUSCULAR HGB CONC 34 g/dL (32-36); MEAN CORPUSCULAR VOLUME 89 fL (80-99); MEAN PLATELET VOLUME 9.7 fL (9.0-12.2); MONOCYTES # (AUTO) 0.6 10^3/uL (0.0-1.0); MONOCYTES % (AUTO) 6 % (0-12); NEUTROPHILS # (AUTO) 7.8 10^3/uL (1.8-7.8); NEUTROPHILS % (AUTO) 72 % (42-75); PLATELET COUNT 295 10^3/uL (130-400); WHITE BLOOD COUNT 10.8 10^3/uL (4.3-11.0)
[2022-01-05 23:28] LABS: POTASSIUM 3.9 MMOL/L (3.6-5.0)
[2022-01-05 23:30] LABS: CALCIUM 9.4 MG/DL (8.5-10.1)
[2022-01-05 23:34] LABS: CREATININE SERUM 1.01 MG/DL (0.60-1.30)
[2022-01-06] MEDS ORDERED: LINEZOLID (ZYVOX) 600 MG TAB PO ONE (01:00)
[2022-01-06] MEDS ORDERED: morphine INJ 10 MG/ML 1ML (SYR OR VIAL) IVP STA (01:00)
--- NOTE | 2022-01-06 01:05 | ED Lower Extremity ---
General Chief Complaint: Lower Extremity Stated Complaint: R FOOT POST OP BLISTERS AND PAIN Nursing Triage Note: PT ARRIVAL TO ER VIA WHEELCHAIR WITH COMPLAINT OF BLISTERS TO RIGHT FOOT WHICH IS POST OP 01/02/22. PT HAD SURGERY DUE TO INFECTION OF BONE. FOOT IS NOW HAVING WEEPING BLISTERS AROUND SITE OF SURGERY. INCREASED PAIN. Source: patient, old records Exam Limitations: no limitations History of Present Illness Date Seen by Provider: Jan 05, 2022 Time Seen by Provider: 22:38 Initial Comments This 51-year-old gentleman presents to the emergency room with concerns about increasing swelling and blisters on the right foot after having surgery to remove the second metatarsal on January [address] Gordon for treatment of osteomyelitis. He has been taking clindamycin but bone cultures have not returned yet. He did contact Dr. Gordon who stated he would contact the patient again after cultures were reviewed. He is afebrile. Wound has been left open and they are doing packings at home. Allergies and Home Medications Allergies Coded Allergies: Penicillins (Verified Allergy, Unknown, CHILD/INFANT, 12/29/21) Sulfa (Sulfonamide Antibiotics) (Verified Allergy, Unknown, LIPS/PENIS SWELLING, 12/29/21) doxycycline (Verified Allergy, Unknown, Shortness of Breath, 08/30/21) dulaglutide (Verified Allergy, Unknown, DIGESTIVE ISSUES, 12/29/21) semaglutide (Verified Allergy, Unknown, DIGESTIVE ISSUES, 12/29/21) Patient Home Medication List Home Medication List Reviewed: Yes Albuterol Sulfate (Proventil Hfa) 90 Mcg Hfa.aer.ad, 1 PUFF INH Q6H PRN for SHORTNESS OF BREATH, (Reported) Entered as Reported by: MONSE CORTEZ on 08/30/21 1212 Albuterol Sulfate (Albuterol Sulfate) 2.5 Mg/3 Ml (0.083 %) Vial.neb, 3 ML NEB Q6H PRN for SHORTNESS OF BREATH, (Reported) Entered as Reported by: MONSE CORTEZ on 08/30/21 1212 Aspirin (Aspirin EC) 325 Mg Tablet.dr, 325 MG PO DAILY PRN for BLOOD CLOT PRE VENTION, (Reported) Entered as Reported by: MONSE CORTEZ on 08/30/21 1212 Bupropion HCl (Bupropion Xl) 150 Mg Tab.er.24h, 150 MG PO DAILY, (Reported) Entered as Reported by: MONSE CORTEZ on 08/30/21 1212 Clindamycin HCl (Cleocin HCl) 150 Mg Capsule, 1 CAP PO QID Prescribed by: MARITO GORDON on 01/02/22 1117 Clobetasol Propionate (Clobetasol Propionate) 0.05 % Oint...g., 1 APPLIC TOP BID PRN for BLISTERS/RASH, (Reported) Entered as Reported by: MONSE CORTEZ on 08/30/21 121 Dapagliflozin Propanediol (Farxiga) 10 Mg Tablet, 10 MG PO HS, (Reported) Entered as Reported by: MONSE CORTEZ on 08/30/21 121 Diphenhydramine HCl (Benadryl Allergy) 25 Mg Tablet, 50 MG PO HS, (Reported) Entered as Reported by: MONSE CORTEZ on 08/30/21 121 Gabapentin Enacarbil (Horizant) 600 Mg Tablet.er, 600 MG PO BID, (Reported) Entered as Reported by: MONSE CORTEZ on 08/30/21 121 Hydrocodone/Acetaminophen (Hydrocodone-Acetamin 7.5-325) 7.5 Mg-325 Mg Tablet, 1 EA PO TID PRN for PAIN-MODERATE (5-7), (Reported) Entered as Reported by: MONSE CORTEZ on 08/30/21 121 Hydrocodone/Acetaminophen (Hydrocodone-Acetamin 7.5-325) 7.5 Mg-325 Mg Tablet, 1 EACH PO Q6H Prescribed by: MARITO GORDON on 01/02/22 1118 Linaclotide (Linzess) 72 Mcg Capsule, 72 MCG PO DAILY PRN for CONSTIPATION, (Reported) Entered as Reported by: MONSE CORTEZ on 08/30/21 121 Linezolid (Linezolid) 600 Mg Tablet, 600 MG PO BID Prescribed by: EM EL on 01/06/22 0110 Oxybutynin Chloride (Oxybutynin Chloride ER) 10 Mg Tab.er.24, 10 MG PO HS, (Reported) Entered as Reported by: MONSE CORTEZ on 08/30/21 121 Phentermine HCl (Phentermine HCl) 37.5 Mg Capsule, 37.5 MG PO DAILY PRN for APPETITE CONTROL, (Reported) Entered as Reported by: MONSE CORTEZ on 08/30/211211 Pramipexole Di-HCl (Pramipexole Dihydrochloride) 1 Mg Tablet, 1 MG PO TID, (Reported) Entered as Reported by: MONSE CORTEZ on 08/30/211211 Rosuvastatin Calcium (Rosuvastatin Calcium) 10 Mg Tablet, 10 MG PO HS, (Reported) Entered as Reported by: MONSE CORTEZ on 08/30/211211 Sildenafil Citrate (Sildenafil Citrate) 100 Mg Tablet, 50 MG PO DAILY PRN for ED, (Reported) Entered as Reported by: MONSE CORTEZ on 08/30/21 121 Tamsulosin HCl (Flomax) 0.4 Mg Cap, 0.4 MG PO HS, (Reported) Entered as Reported by: MONSE CORTEZ on 08/30/211211 Tizanidine HCl (Tizanidine HCl) 4 Mg Tablet, 4 MG PO TID PRN for MUSCLE SPASMS, (Reported) Entered as Reported by: MONSE CORTEZ on 08/30/21 121 Discontinued Medications Clindamycin HCl (Clindamycin HCl) 300 Mg Capsule, 300 MG PO QID, (Reported) Entered as Reported by: MONSE CORTEZ on 08/30/211211 Review of Systems Constitutional: no symptoms reported EENTM: no symptoms reported Respiratory: no symptoms reported Cardiovascular: no symptoms reported Gastrointestinal: no symptoms reported Genitourinary: no symptoms reported Musculoskeletal: see HPI Skin: see HPI Psychiatric/Neurological: No Symptoms Reported Past [place]-Kfiiso-Sauhei Hx Patient Social History Tobacco Use?: No Smoking Status: Former Smoker Use of E-Cig and/or Vaping dev: No Substance use?: No Alcohol Use?: No Pt feels they are or have been: No Immunizations Up To Date Tetanus Booster (TDap): Unknown Influenza Vaccine Up-to-Date: No; Not Current Seasonal Allergies Seasonal Allergies: Yes Past Medical History Surgery/Hospitalization HX: MS, DM2, SLEEP APNEA, NEUROPATHY, FIBROMYALGIA Surgeries: Yes (UMBILICAL HERNIA REPAIR; THROAT SURGERY FOR SLEEP APNEA, 2ND TOE RIGHT) Abdominal, Orthopedic (Removal of right second toe and metatarsal of osteomyelitis) Respiratory: Yes Asthma, Sleep Apnea Currently Using CPAP: No Currently Using BIPAP: No Cardiac: Yes Chronic Edema/Swelling, Deep Vein Thrombosis, High Cholesterol, Hypertension Neurological: Yes (MEMORY LOSS/POOR MEMORY; PERIPHERAL NEUROPATHY) Multiple Sclerosis, Neuropathy Reproductive Disorders: Yes (E.D.) Genitourinary: Yes (BLADDER CONTROL ISSUES; E.D.) Kidney Stones Gastrointestinal: Yes (UMBILICAL HERNIA REPAIR) Chronic Constipation, Chronic Diarrhea, Irritable Bowel Musculoskeletal: Yes (CHRONIC GENERALIZED PAIN; RESTLESS LEG, osteomyelitis) Chronic Back Pain Endocrine: Yes (WAS ON INSULIN, NOW ON FARXIGA; OBESITY) Diabetes, Non-Insulin dep HEENT: No (GLASSES) Cancer: No Psychosocial: Yes Anxiety, Depression Integumentary: No Blood Disorders: No Family Medical History Other Conditions/Hx SOCIAL HISTORY: -SMOKES 1 PPD, PT ALSO VAPES NICOTINE DAILY -DENIES ETOH USE -DENIES DRUG USE PAST SURGICAL HISTORY: -UMBILICAL HERNIA REPAIR -THROAT SURGERY FOR SLEEP APNEA Physical Exam Vital Signs Vital Signs - First Documented 01/05/22 22:30 Pulse 94 Resp 20 B/P (MAP) 120/79 (93) Pulse Ox 96 O2 Delivery Room Air Capillary Refill : Height, Weight, BMI Height: '" Weight: lbs. oz. kg; 45.00 BMI Method: General Appearance: WD/WN, mild distress HEENT: normal ENT inspection Neck: normal inspection Cardiovascular: regular rate, rhythm, no edema, no murmur Respiratory: lungs clear, normal breath sounds, no respiratory distress Feet: right foot other (Right foot severely edematous. Open surgical wound whe re there is excision of the second metatarsal. There is significant paraparetic and erythematous skin change along the surgical wound with blistering and weeping) Neurologic/Psychiatric: alert, normal mood/affect, oriented x 3 Skin: normal color, warm/dry, other (See above) Progress/Results/Core Measures Results/Orders Lab Results Laboratory Tests Test 01/05/22 23:05 Range/Units White Blood Count 10.8 4.3-11.0 10^3/uL Red Blood Count 4.57 4.30-5.52 10^6/uL Hemoglobin 13.7 13.3-17.7 g/dL Hematocrit 41 40-54 % Mean Corpuscular Volume 89 80-99 fL Mean Corpuscular Hemoglobin 30 25-34 pg Mean Corpuscular Hemoglobin Concent 34 32-36 g/dL Red Cell Distribution Width 14.7 H 10.0-14.5 % Platelet Count 295 130-400 10^3/uL Mean Platelet Volume 9.7 9.0-12.2 fL Immature Granulocyte % (Auto) 0 % Neutrophils (%) (Auto) 72 42-75 % Lymphocytes (%) (Auto) 13 12-44 % Monocytes (%) (Auto) 6 0-12 % Eosinophils (%) (Auto) 8 0-10 % Basophils (%) (Auto) 1 0-10 % Neutrophils # (Auto) 7.8 1.8-7.8 10^3/uL Lymphocytes # (Auto) 1.4 1.0-4.0 10^3/uL Monocytes # (Auto) 0.6 0.0-1.0 10^3/uL Eosinophils # (Auto) 0.9 H 0.0-0.3 10^3/uL Basophils # (Auto) 0.1 0.0-0.1 10^3/uL Immature Granulocyte # (Auto) 0.0 0.0-0.1 10^3/uL Sodium Level 139 135-145 MMOL/L Potassium Level 3.9 3.6-5.0 MMOL/L Chloride Level 104 98-107 MMOL/L Carbon Dioxide Level 23 21-32 MMOL/L Anion Gap 12 5-14 MMOL/L Blood Urea Nitrogen 21 H 7-18 MG/DL Creatinine 1.01 0.60-1.30 MG/DL Estimat Glomerular Filtration Rate 91 BUN/Creatinine Ratio 21 Glucose Level 132 H 70-105 MG/DL Calcium Level 9.4 8.5-10.1 MG/DL C-Reactive Protein High Sensitivity 5.20 H 0.00-0.50 MG/DL My Orders Orders - EM OMER MD Basic Metabolic Panel (01/05/22 22:38) Cbc With Automated Diff (01/05/22 22:38) Hs C Reactive Protein (01/05/22 22:38) Ed Iv/Invasive Line Start (01/05/22 22:38) Foot, Right, 3 View (01/05/22 22:38) Morphine Injection (Morphine Injection (01/06/22 01:00) Linezolid Tablet (Zyvox Tablet) (01/06/22 01:00) Vital Signs/I&O 10/27/22 10/28/22 22:30 01:12 Pulse 94 86 Resp 20 20 B/P (MAP) 120/79 (93) 124/77 Pulse Ox 96 99 O2 Delivery Room Air Room Air Blood Pressure Mean: 93 Progress Progress Note : Progress Note Labs were obtained. There were no major concerns with the labs. Patient was afebrile and did not appear septic. Pain was treated with morphine. Cultures were reviewed. Unfortunately, this is a highly resistant microbe and patient is allergic to doxycycline and sulfa. Linezolid was administered in the emergency room. Prescription was provided. I requested that Dr. Escobedo help ensure he receives appropriate treatment due to linezolid cost. See discharge instructions for further discussion. Wound was redressed after examination. Departure Impression Primary Impression: Postoperative pain Additional Impressions: Osteomyelitis Qualified Codes: M86.9 - Osteomyelitis, unspecified Antibiotic-resistant bacterial infection Disposition: HOME, SELF-CARE Condition: Improved Departure-Patient Inst. Decision time for Depature: 01:07 Referrals: [facility] [place] ([place]) Primary Care Physician Patient Instructions: Osteomyelitis in Adults Add. Discharge Instructions: You were culture results from the bone after surgery grew staph epidermidis resistant to many antibiotics. It is sensitive to oral antibiotics that include doxycycline and linezolid. You are being prescribed linezolid due to doxycycline allergy. A prescription has been sent to [facility] pharmacy. You may need to coordinate with your primary care, Dr. Gordno, and your insurance company to obtain this medication as it is quite expensive. Alternatively, arrangements can be made for IV antibiotic therapy. Continue wound care as previously directed. Continue all other medications as previously directed. Elevate your foot to the level of your heart or slightly higher is much as possible. Return to care if you have worsening symptoms including development of fever. Please contact Dr. Gordon tomorrow morning to inform him of the situation. All discharge instructions reviewed with patient and/or family. Voiced understanding. Scripts Linezolid (Linezolid) 600 Mg Tablet 600 MG PO BID, #28 TAB Prov: EM OMER MD 01/06/22 Copy Copies To 1: MARITO GORDON DPM Copies To 2: [facility]/EM CRUMP MD Jan 06, 2022 01:05
[2022-01-06] MEDS ORDERED: LNZ600T PO (01:10)
[2022-01-06 01:12] VITALS: BP 124/77
--- NOTE | 2022-01-06 07:15 | Diagnostic Imaging Report ---
INDICATION: Right foot pain 3 views the right foot shows prior amputation of the 2nd metatarsal and toe. There is soft tissue swelling in the foot. There appears to be some gas in the soft tissues where the 2nd ray was resected. IMPRESSION: Soft tissue swelling right foot raising concern for cellulitis. Dictated by: Dictated on workstation # [id number]
== END 2022-01-06 01:25 | disposition home or self-care (01) ==
LOC: EDUNIT# 22:18 → ER 22:22
DX: G89.29 Other chronic pain (principal); M86.8X9 Other osteomyelitis, unspecified sites; Z16.20 Resistance to unspecified antibiotic; Z87.891 Personal history of nicotine dependence; Z28.310 Unvaccinated for COVID-19
CPT/HCPCS: 36415; 73630; 80048; 85025; 86141

== ENCOUNTER → 2022-01-09 | Outpatient (CLI) | payer MEDICARE ==
[~2022-01-09] MED LIST changes: +LNZ600T PO
== END ==
LOC: WOUNDCARE 08:59
PROVIDERS: ATTEND Family Medicine
DX: E11.621 Type 2 diabetes mellitus with foot ulcer (principal); I89.0 Lymphedema, not elsewhere classified; T65.292A Toxic effect of other tobacco and nicotine, intentional self-harm, initial encounter; I70.201 Unspecified atherosclerosis of native arteries of extremities, right leg; E66.01 Morbid (severe) obesity due to excess calories; T81.31XA Disruption of external operation (surgical) wound, not elsewhere classified, initial encounter; M86.171 Other acute osteomyelitis, right ankle and foot; B95.62 Methicillin resistant Staphylococcus aureus infection as the cause of diseases classified elsewhere; E11.610 Type 2 diabetes mellitus with diabetic neuropathic arthropathy; L23.3 Allergic contact dermatitis due to drugs in contact with skin; E11.52 Type 2 diabetes mellitus with diabetic peripheral angiopathy with gangrene; I96 Gangrene, not elsewhere classified
CPT/HCPCS: 11042; A6197; A6266; G0463

== ENCOUNTER → 2022-01-16 | Outpatient (CLI) | payer MEDICARE | LOC: WOUNDCARE 08:44 | PROVIDERS: ATTEND Family Medicine | DX: T81.31XA Disruption of external operation (surgical) wound, not elsewhere classified, initial encounter (principal); I89.0 Lymphedema, not elsewhere classified; T65.222A Toxic effect of tobacco cigarettes, intentional self-harm, initial encounter; I70.211 Atherosclerosis of native arteries of extremities with intermittent claudication, right leg; E66.01 Morbid (severe) obesity due to excess calories; M86.171 Other acute osteomyelitis, right ankle and foot; E11.621 Type 2 diabetes mellitus with foot ulcer; L97.509 Non-pressure chronic ulcer of other part of unspecified foot with unspecified severity; B95.62 Methicillin resistant Staphylococcus aureus infection as the cause of diseases classified elsewhere; E11.610 Type 2 diabetes mellitus with diabetic neuropathic arthropathy; L23.3 Allergic contact dermatitis due to drugs in contact with skin; E11.52 Type 2 diabetes mellitus with diabetic peripheral angiopathy with gangrene; I96 Gangrene, not elsewhere classified | CPT/HCPCS: 11042; G0463 ==

== ENCOUNTER → 2022-01-23 | Outpatient (CLI) | payer MEDICARE | LOC: WOUNDCARE 08:56 | PROVIDERS: ATTEND Family Medicine | DX: I89.0 Lymphedema, not elsewhere classified (principal); T65.292A Toxic effect of other tobacco and nicotine, intentional self-harm, initial encounter; I70.201 Unspecified atherosclerosis of native arteries of extremities, right leg; E66.01 Morbid (severe) obesity due to excess calories; T81.31XA Disruption of external operation (surgical) wound, not elsewhere classified, initial encounter; M86.171 Other acute osteomyelitis, right ankle and foot; E11.621 Type 2 diabetes mellitus with foot ulcer; B95.62 Methicillin resistant Staphylococcus aureus infection as the cause of diseases classified elsewhere; E11.610 Type 2 diabetes mellitus with diabetic neuropathic arthropathy; L30.2 Cutaneous autosensitization; E11.52 Type 2 diabetes mellitus with diabetic peripheral angiopathy with gangrene | CPT/HCPCS: 11042; G0463 ==

== ENCOUNTER → 2022-01-30 | Outpatient (CLI) | payer MEDICARE | LOC: WOUNDCARE 08:54 | PROVIDERS: ATTEND Family Medicine | DX: T81.31XA Disruption of external operation (surgical) wound, not elsewhere classified, initial encounter (principal); I96 Gangrene, not elsewhere classified; I89.0 Lymphedema, not elsewhere classified; M86.171 Other acute osteomyelitis, right ankle and foot; I70.201 Unspecified atherosclerosis of native arteries of extremities, right leg; E11.621 Type 2 diabetes mellitus with foot ulcer; E66.01 Morbid (severe) obesity due to excess calories; B95.61 Methicillin susceptible Staphylococcus aureus infection as the cause of diseases classified elsewhere; T65.292A Toxic effect of other tobacco and nicotine, intentional self-harm, initial encounter; L30.2 Cutaneous autosensitization; E11.610 Type 2 diabetes mellitus with diabetic neuropathic arthropathy; Z68.41 Body mass index [BMI] 40.0-44.9, adult | CPT/HCPCS: 11042; G0463 ==

== ENCOUNTER → 2022-02-06 | Outpatient (CLI) | payer MEDICARE | LOC: WOUNDCARE 08:57 | PROVIDERS: ATTEND Family Medicine | DX: T81.31XA Disruption of external operation (surgical) wound, not elsewhere classified, initial encounter (principal); I89.0 Lymphedema, not elsewhere classified; T65.292A Toxic effect of other tobacco and nicotine, intentional self-harm, initial encounter; I70.201 Unspecified atherosclerosis of native arteries of extremities, right leg; E66.01 Morbid (severe) obesity due to excess calories; M86.171 Other acute osteomyelitis, right ankle and foot; E11.621 Type 2 diabetes mellitus with foot ulcer; L97.509 Non-pressure chronic ulcer of other part of unspecified foot with unspecified severity; B95.62 Methicillin resistant Staphylococcus aureus infection as the cause of diseases classified elsewhere; E11.610 Type 2 diabetes mellitus with diabetic neuropathic arthropathy; L30.2 Cutaneous autosensitization; E11.52 Type 2 diabetes mellitus with diabetic peripheral angiopathy with gangrene; I96 Gangrene, not elsewhere classified | CPT/HCPCS: 11042; 11045; G0463 ==

== ENCOUNTER → 2022-02-13 | Outpatient (CLI) | payer MEDICARE | LOC: WOUNDCARE 09:37 | PROVIDERS: ATTEND Family Medicine | DX: I89.0 Lymphedema, not elsewhere classified (principal); T65.292A Toxic effect of other tobacco and nicotine, intentional self-harm, initial encounter; I70.201 Unspecified atherosclerosis of native arteries of extremities, right leg; E66.01 Morbid (severe) obesity due to excess calories; T81.31XA Disruption of external operation (surgical) wound, not elsewhere classified, initial encounter; M86.171 Other acute osteomyelitis, right ankle and foot; E11.621 Type 2 diabetes mellitus with foot ulcer; B95.62 Methicillin resistant Staphylococcus aureus infection as the cause of diseases classified elsewhere; E11.610 Type 2 diabetes mellitus with diabetic neuropathic arthropathy; L30.2 Cutaneous autosensitization; E11.52 Type 2 diabetes mellitus with diabetic peripheral angiopathy with gangrene | CPT/HCPCS: 11042; 11045; G0463 ==

== ENCOUNTER → 2022-02-20 | Outpatient (CLI) | payer MEDICARE | LOC: WOUNDCARE 08:58 | PROVIDERS: ATTEND Family Medicine | DX: T81.31XA Disruption of external operation (surgical) wound, not elsewhere classified, initial encounter (principal); I89.0 Lymphedema, not elsewhere classified; T65.222A Toxic effect of tobacco cigarettes, intentional self-harm, initial encounter; I70.211 Atherosclerosis of native arteries of extremities with intermittent claudication, right leg; E66.01 Morbid (severe) obesity due to excess calories; M86.171 Other acute osteomyelitis, right ankle and foot; E11.621 Type 2 diabetes mellitus with foot ulcer; E11.610 Type 2 diabetes mellitus with diabetic neuropathic arthropathy; L30.2 Cutaneous autosensitization; E11.52 Type 2 diabetes mellitus with diabetic peripheral angiopathy with gangrene; I96 Gangrene, not elsewhere classified; L97.509 Non-pressure chronic ulcer of other part of unspecified foot with unspecified severity | CPT/HCPCS: 11042; G0463 ==

== ENCOUNTER → 2022-02-27 | Outpatient (CLI) | payer MEDICARE | LOC: WOUNDCARE 08:58 | PROVIDERS: ATTEND Family Medicine | DX: T81.31XA Disruption of external operation (surgical) wound, not elsewhere classified, initial encounter (principal); I96 Gangrene, not elsewhere classified; T65.292A Toxic effect of other tobacco and nicotine, intentional self-harm, initial encounter; I70.201 Unspecified atherosclerosis of native arteries of extremities, right leg; I89.0 Lymphedema, not elsewhere classified; M86.171 Other acute osteomyelitis, right ankle and foot; E66.01 Morbid (severe) obesity due to excess calories; E11.621 Type 2 diabetes mellitus with foot ulcer; E11.610 Type 2 diabetes mellitus with diabetic neuropathic arthropathy; L30.2 Cutaneous autosensitization; Z68.41 Body mass index [BMI] 40.0-44.9, adult | CPT/HCPCS: 11042; 85652; 86141; 87070; 87205; G0463; 36415 ==

== ENCOUNTER → 2022-02-28 | Outpatient (CLI) | payer MEDICARE ==
--- NOTE | 2022-02-28 08:53 | Diagnostic Imaging Report ---
EXAM: US VENOUS LOWER EXT RT INDICATION: Right lower extremity edema. COMPARISON: 09/21/2021. TECHNIQUE: Duplex, boyer-scale and color-flow imaging of the right lower extremity venous system was performed FINDINGS: The right common femoral vein, superficial femoral vein, profunda femoris, and popliteal veins are normal. These vessels show normal compressibility, color flow, and doppler augmentation. The deep calf veins demonstrate no distinct intraluminal thrombus where seen. IMPRESSION: No evidence of deep venous thrombosis in the right lower extremity. Dictated by: Dictated on workstation # [id number]
== END ==
LOC: RAD 08:30
PROVIDERS: ATTEND Family Medicine
DX: I89.0 Lymphedema, not elsewhere classified (principal); T65.292A Toxic effect of other tobacco and nicotine, intentional self-harm, initial encounter; I70.201 Unspecified atherosclerosis of native arteries of extremities, right leg; E66.01 Morbid (severe) obesity due to excess calories; T81.31XA Disruption of external operation (surgical) wound, not elsewhere classified, initial encounter; M86.171 Other acute osteomyelitis, right ankle and foot; E11.621 Type 2 diabetes mellitus with foot ulcer; E11.610 Type 2 diabetes mellitus with diabetic neuropathic arthropathy; L30.2 Cutaneous autosensitization

== ENCOUNTER → 2022-03-07 | Outpatient (CLI) | payer MEDICARE | LOC: WOUNDCARE 09:59 | PROVIDERS: ATTEND Family Medicine | DX: I89.0 Lymphedema, not elsewhere classified (principal); E11.621 Type 2 diabetes mellitus with foot ulcer; E11.40 Type 2 diabetes mellitus with diabetic neuropathy, unspecified; E11.52 Type 2 diabetes mellitus with diabetic peripheral angiopathy with gangrene; I96 Gangrene, not elsewhere classified; T65.292A Toxic effect of other tobacco and nicotine, intentional self-harm, initial encounter; I70.201 Unspecified atherosclerosis of native arteries of extremities, right leg; T81.31XA Disruption of external operation (surgical) wound, not elsewhere classified, initial encounter; E66.01 Morbid (severe) obesity due to excess calories; M86.171 Other acute osteomyelitis, right ankle and foot; L30.2 Cutaneous autosensitization; Z68.41 Body mass index [BMI] 40.0-44.9, adult | CPT/HCPCS: 11042; G0463 ==

== ENCOUNTER → 2022-03-14 | Outpatient (CLI) | payer MEDICARE | LOC: WOUNDCARE 12:34 | PROVIDERS: ATTEND Family Medicine | DX: T81.31XA Disruption of external operation (surgical) wound, not elsewhere classified, initial encounter (principal); I89.0 Lymphedema, not elsewhere classified; T65.292A Toxic effect of other tobacco and nicotine, intentional self-harm, initial encounter; I70.238 Atherosclerosis of native arteries of right leg with ulceration of other part of lower leg; E66.01 Morbid (severe) obesity due to excess calories; M86.171 Other acute osteomyelitis, right ankle and foot; E11.621 Type 2 diabetes mellitus with foot ulcer; E11.610 Type 2 diabetes mellitus with diabetic neuropathic arthropathy; L97.509 Non-pressure chronic ulcer of other part of unspecified foot with unspecified severity; E11.52 Type 2 diabetes mellitus with diabetic peripheral angiopathy with gangrene; I96 Gangrene, not elsewhere classified | CPT/HCPCS: 11042; G0463 ==

== ENCOUNTER → 2022-03-20 | Outpatient (CLI) | payer MEDICARE | LOC: WOUNDCARE 08:55 | PROVIDERS: ATTEND Family Medicine | DX: I89.0 Lymphedema, not elsewhere classified (principal); T65.292A Toxic effect of other tobacco and nicotine, intentional self-harm, initial encounter; I70.209 Unspecified atherosclerosis of native arteries of extremities, unspecified extremity; E66.01 Morbid (severe) obesity due to excess calories; T81.31XA Disruption of external operation (surgical) wound, not elsewhere classified, initial encounter; M86.171 Other acute osteomyelitis, right ankle and foot; E11.621 Type 2 diabetes mellitus with foot ulcer; E11.610 Type 2 diabetes mellitus with diabetic neuropathic arthropathy; E11.52 Type 2 diabetes mellitus with diabetic peripheral angiopathy with gangrene | CPT/HCPCS: 99212 ==

== ENCOUNTER 2022-06-05 13:57 | Emergency (ER) | payer MEDICARE ==
[~2022-06-05] VITALS: Ht 170 cm; Wt 126.0 kg
--- NOTE | 2022-06-05 15:04 | ED Lower Extremity ---
General Chief Complaint: Lower Extremity Stated Complaint: RT LEG PAIN Nursing Triage Note: PT STATES RT LOWER LEG PAINFUL AND SWOLLEN, SENT HERE FROM [facility], RT FOOT SECOND TOE AMPUTATED LAST YR. 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 Pain over the past week. Noted some swelling and redness to the right dorsum foot. He states his blood sugar has been better controlled not currently on insulin. Denies of any specific trauma. Concerning for redness and warmth to the right dorsum foot. He states he has had his second toe surgical removed last August. Denies of any specific injury. Denies fever, chills, nausea, vomiting, diar jose, abdominal, chest pain, shortness of breath. Allergies and Home Medications Allergies Coded Allergies: Penicillins (Verified Allergy, Unknown, CHILD/INFANT, 12/29/21) Sulfa (Sulfonamide Antibiotics) (Verified Allergy, Unknown, LIPS/PENIS SWELLING, 12/29/21) doxycycline (Verified Allergy, Unknown, Shortness of Breath, 08/30/21) dulaglutide (Verified Allergy, Unknown, DIGESTIVE ISSUES, 12/29/21) semaglutide (Verified Allergy, Unknown, DIGESTIVE ISSUES, 12/29/21) Patient Home Medication List Home Medication List Reviewed: Yes Albuterol Sulfate (Proventil Hfa) 90 Mcg Hfa.aer.ad, 1 PUFF INH Q6H PRN for SHORTNESS OF BREATH, (Reported) Entered as Reported by: MONSE CORTEZ on 08/30/21 121 Albuterol Sulfate (Albuterol Sulfate) 2.5 Mg/3 Ml (0.083 %) Vial.neb, 3 ML NEB Q6H PRN for SHORTNESS OF BREATH, (Reported) Entered as Reported by: MONSE CORTEZ on 08/30/21 121 Aspirin (Aspirin EC) 325 Mg Tablet.dr, 325 MG PO DAILY PRN for BLOOD CLOT P REVENTION, (Reported) Entered as Reported by: MONSE CORTEZ on 08/30/21 121 Bupropion HCl (Bupropion Xl) 150 Mg Tab.er.24h, 150 MG PO DAILY, (Reported) Entered as Reported by: MONSE CORTEZ on 08/30/21 1212 Cephalexin (Cephalexin) 500 Mg Tablet, 500 MG PO QID Prescribed by: ANN NOLAN on 06/05/22 1624 Clindamycin HCl (Cleocin HCl) 150 Mg Capsule, 1 CAP PO QID Prescribed by: MARITO GORDON on 01/02/22 1117 Clindamycin HCl (Clindamycin HCl) 300 Mg Capsule, 300 MG PO QID Prescribed by: ANN NOLAN on 06/05/22 1624 Clobetasol Propionate (Clobetasol Propionate) 0.05 % Oint...g., 1 APPLIC TOP BID PRN for BLISTERS/RASH, (Reported) Entered as Reported by: MONSE CORTEZ on 08/30/21 121 Dapagliflozin Propanediol (Farxiga) 10 Mg Tablet, 10 MG PO HS, (Reported) Entered as Reported by: MONSE CORTEZ on 08/30/21 121 Diphenhydramine HCl (Benadryl Allergy) 25 Mg Tablet, 50 MG PO HS, (Reported) Entered as Reported by: MONSE CORTEZ on 08/30/21 121 Gabapentin Enacarbil (Horizant) 600 Mg Tablet.er, 600 MG PO BID, (Reported) Entered as Reported by: MONSE CORTEZ on 08/30/21 121 Hydrocodone/Acetaminophen (Hydrocodone-Acetamin 7.5-325) 7.5 Mg-325 Mg Tablet, 1 EA PO TID PRN for PAIN-MODERATE (5-7), (Reported) Entered as Reported by: MONSE CORTEZ on 08/30/21 1212 Hydrocodone/Acetaminophen (Hydrocodone-Acetamin 7.5-325) 7.5 Mg-325 Mg Tablet, 1 EACH PO Q6H Prescribed by: MARITO GORDON on 01/02/22 111 Linaclotide (Linzess) 72 Mcg Capsule, 72 MCG PO DAILY PRN for CONSTIPATION, (Reported) Entered as Reported by: MONSE CORTEZ on 08/30/21 121 Linezolid (Linezolid) 600 Mg Tablet, 600 MG PO BID Prescribed by: EM EL on 01/06/22 0110 Oxybutynin Chloride (Oxybutynin Chloride ER) 10 Mg Tab.er.24, 10 MG PO HS, (Reported) Entered as Reported by: MONSE CORTEZ on 08/30/21 121 Phentermine HCl (Phentermine HCl) 37.5 Mg Capsule, 37.5 MG PO DAILY PRN for APPETITE CONTROL, (Reported) Entered as Reported by: MONSE CORTEZ on 08/30/21 121 Pramipexole Di-HCl (Pramipexole Dihydrochloride) 1 Mg Tablet, 1 MG PO TID, (Reported) Entered as Reported by: MONSE CORTEZ on 08/30/211211 Rosuvastatin Calcium (Rosuvastatin Calcium) 10 Mg Tablet, 10 MG PO HS, (Reported) Entered as Reported by: MONSE CORTEZ on 08/30/21 121 Sildenafil Citrate (Sildenafil Citrate) 100 Mg Tablet, 50 MG PO DAILY PRN for ED, (Reported) Entered as Reported by: MONSE CORTEZ on 08/30/21 121 Tamsulosin HCl (Flomax) 0.4 Mg Cap, 0.4 MG PO HS, (Reported) Entered as Reported by: MONSE CORTEZ on 08/30/211211 Tizanidine HCl (Tizanidine HCl) 4 Mg Tablet, 4 MG PO TID PRN for MUSCLE SPASMS, (Reported) Entered as Reported by: MONSE CORTEZ on 08/30/211211 Review of Systems Constitutional: No chills, No diaphoresis, No fever, No malaise EENTM: No ear pain, No blurred vision Respiratory: No cough, No dyspnea on exertion Cardiovascular: No chest pain Gastrointestinal: No abdominal pain, No diarrhea, No nausea, No vomiting Genitourinary: No decreased output, No discharge Musculoskeletal: No back pain; joint pain, joint swelling Skin: change in color All Other Systems Reviewed Negative Unless Noted: Yes Past Dnbeubp-Mjbnei-Pfmivy Hx Patient Social History Tobacco Use?: Yes Tobacco type used: Cigarettes Smoking Status: Current Everyday Smoker Substance use?: Yes Substance type: Marijuana Alcohol Use?: No Immunizations Up To Date Tetanus Booster (TDap): Unknown Seasonal Allergies Seasonal Allergies: Yes Past Medical History Surgery/Hospitalization HX: MS, DM2, SLEEP APNEA, NEUROPATHY, FIBROMYALGIA, RT FOOT SECOND TOE AMPUTATION, HERNIA, RESTLESS LEG Surgeries: Yes (UMBILICAL HERNIA REPAIR; THROAT SURGERY FOR SLEEP APNEA, 2ND TOE RIGHT) Abdominal Respiratory: Yes Asthma, Sleep Apnea Currently Using CPAP: No Currently Using BIPAP: No Cardiac: Yes Chronic Edema/Swelling, Deep Vein Thrombosis, High Cholesterol, Hypertension Neurological: Yes (MEMORY LOSS/POOR MEMORY; PERIPHERAL NEUROPATHY) Multiple Sclerosis, Neuropathy Reproductive Disorders: Yes (E.D.) Genitourinary: Yes (BLADDER CONTROL ISSUES; E.D.) Kidney Stones Gastrointestinal: Yes (UMBILICAL HERNIA REPAIR) Chronic Constipation, Chronic Diarrhea, Irritable Bowel Musculoskeletal: Yes (CHRONIC GENERALIZED PAIN; RESTLESS LEG ) Chronic Back Pain Endocrine: Yes (WAS ON INSULIN, NOW ON FARXIGA; OBESITY) Diabetes, Non-Insulin dep HEENT: No (GLASSES) Cancer: No Psychosocial: Yes Anxiety, Depression Integumentary: No Blood Disorders: No Family Medical History Other Conditions/Hx SOCIAL HISTORY: -SMOKES 1 PPD, PT ALSO VAPES NICOTINE DAILY -DENIES ETOH USE -DENIES DRUG USE PAST SURGICAL HISTORY: -UMBILICAL HERNIA REPAIR -THROAT SURGERY FOR SLEEP APNEA Physical Exam Vital Signs Vital Signs - First Documented 06/05/22 14:25 Temp 36.8 Pulse 76 Resp 18 B/P (MAP) 148/83 (104) Pulse Ox 99 O2 Delivery Room Air Capillary Refill : Less Than 3 Seconds Height, Weight, BMI Height: '" Weight: lbs. oz. kg; 43.00 BMI Method: General Appearance: WD/WN, no apparent distress HEENT: PERRL/EOMI, normal ENT inspection, TMs normal, pharynx normal Neck: non-tender, full range of motion, supple Cardiovascular: regular rate, rhythm, no edema, no gallop Respiratory: chest non-tender, lungs clear, normal breath sounds, no respiratory distress, no accessory muscle use Gastrointestinal: normal bowel sounds, non tender, soft, no organomegaly Back: normal inspection, no CVA tenderness, no vertebral tenderness Feet: right foot pain (Right foot tenderness with erythema), right foot soft tissue tenderness, right foot swelling, right foot other (Right second toe amputation) Neurologic/Psychiatric: heel cover softener II-XII nml as tested, no motor/sensory deficits, alert, normal mood/affect Skin: other (Swelling erythema noted to the right dorsum foot.) Progress/Results/Core Measures Results/Orders Lab Results Laboratory Tests Test 06/05/22 15:17 Range/Units White Blood Count 8.3 4.3-11.0 10^3/uL Red Blood Count 4.45 4.30-5.52 10^6/uL Hemoglobin 13.6 13.3-17.7 g/dL Hematocrit 41 40-54 % Mean Corpuscular Volume 91 80-99 fL Mean Corpuscular Hemoglobin 31 25-34 pg Mean Corpuscular Hemoglobin Concent 34 32-36 g/dL Red Cell Distribution Width 13.2 10.0-14.5 % Platelet Count 295 130-400 10^3/uL Mean Platelet Volume 9.4 9.0-12.2 fL Immature Granulocyte % (Auto) 0 % Neutrophils (%) (Auto) 70 42-75 % Lymphocytes (%) (Auto) 15 12-44 % Monocytes (%) (Auto) 5 0-12 % Eosinophils (%) (Auto) 9 0-10 % Basophils (%) (Auto) 1 0-10 % Neutrophils # (Auto) 5.8 1.8-7.8 X 10^3 Lymphocytes # (Auto) 1.3 1.0-4.0 X 10^3 Monocytes # (Auto) 0.4 0.0-1.0 X 10^3 Eosinophils # (Auto) 0.7 H 0.0-0.3 10^3/uL Basophils # (Auto) 0.1 0.0-0.1 10^3/uL Immature Granulocyte # (Auto) 0.0 0.0-0.1 10^3/uL Erythrocyte Sedimentation Rate 32 H 0-30 MM/HR Sodium Level 140 135-145 MMOL/L Potassium Level 3.9 3.6-5.0 MMOL/L Chloride Level 106 98-107 MMOL/L Carbon Dioxide Level 25 21-32 MMOL/L Anion Gap 9 5-14 MMOL/L Blood Urea Nitrogen 19 H 7-18 MG/DL Creatinine 1.03 0.60-1.30 MG/DL Estimat Glomerular Filtration Rate 88 BUN/Creatinine Ratio 18 Glucose Level 162 H 70-105 MG/DL Calcium Level 9.2 8.5-10.1 MG/DL Corrected Calcium 9.1 8.5-10.1 MG/DL Total Bilirubin 0.4 0.1-1.0 MG/DL Aspartate Amino Transf (AST/SGOT) 14 5-34 U/L Alanine Aminotransferase (ALT/SGPT) 23 0-55 U/L Alkaline Phosphatase 40 40-136 U/L C-Reactive Protein High Sensitivity 1.73 H 0.00-0.50 MG/DL Total Protein 7.1 6.4-8.2 GM/DL Albumin 4.1 3.2-4.5 GM/DL My Orders Orders - SUKUMAR WALKER Cbc With Automated Diff (06/05/22 15:00) Comprehensive Metabolic Panel (06/05/22 15:00) Erythrocyte Sedimentation Rate (06/05/22 15:00) Hs C Reactive Protein (06/05/22 15:00) Foot, Right, 3 View (06/05/22 15:00) Us Venous Lower Ext Rt (06/05/22 15:00) Vital Signs/I&O 06/05/22 14:25 Temp 36.8 Pulse 76 Resp 18 B/P (MAP) 148/83 (104) Pulse Ox 99 O2 Delivery Room Air Blood Pressure Mean: 104 Departure Communication (PCP) Reviewed previous ER visits, H&P, lab testing, surgical H&P. Patient with a history of diabetes, right foot osteomyelitis requiring resection of his second metatarsal and second digit. This was performed last August by Dr. Martin general surgeon. Patient presents ED with right foot pain with erythema. Also reports right calf pain. Due to current presentation CBC, CMP, ESR, CRP and ultrasound right leg and right foot x-ray was ordered. Differential diagnosis of cellulitis right foot, DVT, osteomyelitis. Patient with stable vital signs. Erythema noted to the right dorsum foot. Amputation of second digit. No ulcer. Dorsalis pedis +2, posterior tibialis +2. Calf tenderness. Ultrasound of right leg was negative for DVT. CBC was unremarkable. ESR 32, CRP 1. Not extremely elevated suggesting severe infection versus osteomyelitis. Blood sugar 162. Not currently on insulin. X-ray was negative for acute fracture or any cortical destruction. Concerning for cellulitis of the right foot. Believe early enough that antibiotics would likely improve patient's symptoms. History of MRSA. Will discharge to clindamycin and Keflex. Recommend continue monitoring the area. If increased redness, swelling, pain or fever to return back to ED for further evaluation. Follow-up your PCP 2 to 3 days for reevaluation. Impression Primary Impression: Cellulitis of right foot Disposition: HOME, SELF-CARE Condition: Stable Departure-Patient Inst. Decision time for Depature: 16:21 Referrals: [facility] (PCP/Family) Primary Care Physician Patient Instructions: Cellulitis (Skin Infection), Adult (DC) Scripts Cephalexin (Cephalexin) 500 Mg Tablet 500 MG PO QID for 7 Days, #28 TAB Prov: SUKUMAR WALKER 06/05/22 Clindamycin HCl (Clindamycin HCl) 300 Mg Capsule 300 MG PO QID for 7 Days, #28 CAP Prov: SUKUMAR WALKER 06/05/22 SUKUMAR WALKER Jun 05, 2022 15:04
[2022-06-05 15:23] LABS: BASOPHILS # (AUTO) 0.1 10^3/uL (0.0-0.1); BASOPHILS % (AUTO) 1 % (0-10); EOSINOPHILS # (AUTO) 0.7 10^3/uL (0.0-0.3); EOSINOPHILS % (AUTO) 9 % (0-10); HEMATOCRIT 41 % (40-54); HEMOGLOBIN 13.6 g/dL (13.3-17.7); LYMPHOCYTES # (AUTO) 1.3 X 10^3 (1.0-4.0); LYMPHOCYTES % (AUTO) 15 % (12-44); MEAN CORPUSCULAR HEMOGLOBIN 31 pg (25-34); MEAN CORPUSCULAR HGB CONC 34 g/dL (32-36); MEAN CORPUSCULAR VOLUME 91 fL (80-99); MEAN PLATELET VOLUME 9.4 fL (9.0-12.2); MONOCYTES # (AUTO) 0.4 X 10^3 (0.0-1.0); MONOCYTES % (AUTO) 5 % (0-12); NEUTROPHILS # (AUTO) 5.8 X 10^3 (1.8-7.8); NEUTROPHILS % (AUTO) 70 % (42-75); PLATELET COUNT 295 10^3/uL (130-400); WHITE BLOOD COUNT 8.3 10^3/uL (4.3-11.0)
--- NOTE | 2022-06-05 15:31 | Diagnostic Imaging Report ---
INDICATION: Pain. FINDINGS: There is resection of the 2nd metatarsal and 2nd digit. Alignment is otherwise grossly normal. There are some degenerative changes. No acute fracture or dislocation IMPRESSION: Degenerative changes and previous resection of the 2nd metatarsal and 2nd digit however no other acute fracture or dislocation. Dictated by: Dictated on workstation # [id number]
[2022-06-05 15:42] LABS: ERYTHROCYTE SEDIMENTATION RATE 32 MM/HR (0-30)
[2022-06-05 15:54] LABS: ALBUMIN 4.1 GM/DL (3.2-4.5); POTASSIUM 3.9 MMOL/L (3.6-5.0)
[2022-06-05 15:56] LABS: CALCIUM 9.2 MG/DL (8.5-10.1)
[2022-06-05 15:57] LABS: TOTAL PROTEIN 7.1 GM/DL (6.4-8.2)
[2022-06-05 15:59] LABS: BILIRUBIN,TOTAL 0.4 MG/DL (0.1-1.0)
--- NOTE | 2022-06-05 15:59 | Diagnostic Imaging Report ---
PROCEDURE: US right lower extremity venous. TECHNIQUE: Multiple real-time grayscale images were obtained over the right lower extremity in various projections. Additional spectral analysis and color Doppler duplex images were also obtained. INDICATION: Pain and swelling. FINDINGS: The right common femoral, superficial femoral, popliteal veins and tibial veins demonstrate normal response to compression, augmentation, and Valsalva. There are no right lower extremity fluid collections or masses. IMPRESSION: No evidence of deep vein thrombosis in the right lower extremity. Dictated by: Dictated on workstation # [id number]
[2022-06-05 16:01] LABS: CREATININE SERUM 1.03 MG/DL (0.60-1.30)
[2022-06-05] MEDS ORDERED: CEPH500T PO (16:24)
[2022-06-05] MEDS ORDERED: CLIN-144 PO (16:24)
[2022-06-05 16:26] VITALS: BP 142/84
== END 2022-06-05 16:26 | disposition home or self-care (01) ==
LOC: EDUNIT# 13:57 → ER 14:00
DX: L03.115 Cellulitis of right lower limb (principal); F17.210 Nicotine dependence, cigarettes, uncomplicated; F17.290 Nicotine dependence, other tobacco product, uncomplicated; Z88.0 Allergy status to penicillin; Z88.2 Allergy status to sulfonamides; Z89.421 Acquired absence of other right toe(s); Z28.310 Unvaccinated for COVID-19
CPT/HCPCS: 36415; 73630; 80053; 85025; 85652; 86141

== ENCOUNTER → 2022-12-13 | Outpatient (CLI) | payer MEDICARE ==
[~2022-12-13] MED LIST changes: +ACHD5005 PO; +CEPH500T PO
== END ==
LOC: RAD 07:57
PROVIDERS: ATTEND Surgery
DX: Z53.9 Procedure and treatment not carried out, unspecified reason (principal)

== ENCOUNTER → 2022-12-27 | Outpatient (CLI) | payer MEDICARE | LOC: WOUNDCARE 08:55 | PROVIDERS: ATTEND Family Medicine | DX: S91.14 Puncture wound with foreign body of toe without damage to nail (principal); I96 Gangrene, not elsewhere classified; L03.032 Cellulitis of left toe; I70.235 Atherosclerosis of native arteries of right leg with ulceration of other part of foot; E11.621 Type 2 diabetes mellitus with foot ulcer; E11.40 Type 2 diabetes mellitus with diabetic neuropathy, unspecified; L97.512 Non-pressure chronic ulcer of other part of right foot with fat layer exposed; E66.01 Morbid (severe) obesity due to excess calories; F17.218 Nicotine dependence, cigarettes, with other nicotine-induced disorders; Z68.42 Body mass index [BMI] 45.0-49.9, adult | CPT/HCPCS: 83036; 85652; A6197; G0463; 36415; 99214 ==

== ENCOUNTER → 2023-01-01 | Outpatient (CLI) | payer MEDICARE ==
[~2023-01-01] MED LIST changes: +CATHETER FLUSH 10 ML SYR IVP PRN
--- NOTE | 2023-01-01 15:06 | Diagnostic Imaging Report ---
INDICATION: Diabetic foot ulcers. COMPARISON: Foot radiographs dated 12/04/2022 TECHNIQUE: The patient was administered 27.4 mCi technetium 99 MDP via the left forearm. Arterial blood flow, blood pool, and delayed images were obtained. FINDINGS: The bilateral feet were imaged in the anterior projection. Arterial flow portion of the exam shows asymmetric uptake to the great toes, left greater than right. There is also subtle asymmetric uptake within the right midfoot. Blood pool images show asymmetric uptake within the bilateral great toes as well as within the right mid foot, as well. Similarly, there is asymmetric uptake in the same areas of distribution on the three-hour delayed views. IMPRESSION: 1. Asymmetric uptake involving the bilateral great toes and right midfoot is present on all 3 phases and is concerning for osteomyelitis. Dictated by: Dictated on workstation # [id number]
== END ==
LOC: CARD 09:09
PROVIDERS: ATTEND Family Medicine
DX: I70.235 Atherosclerosis of native arteries of right leg with ulceration of other part of foot (principal); L97.512 Non-pressure chronic ulcer of other part of right foot with fat layer exposed
CPT/HCPCS: 78315; A9503

== ENCOUNTER → 2023-01-03 | Outpatient (CLI) | payer MEDICARE ==
[~2023-01-03] MED LIST changes: -CATHETER FLUSH 10 ML SYR IVP PRN
== END ==
LOC: WOUNDCARE 13:17
PROVIDERS: ATTEND Family Medicine
DX: S91.132 Puncture wound without foreign body of left great toe without damage to nail (principal); I96 Gangrene, not elsewhere classified; E11.621 Type 2 diabetes mellitus with foot ulcer; E11.40 Type 2 diabetes mellitus with diabetic neuropathy, unspecified; I70.235 Atherosclerosis of native arteries of right leg with ulceration of other part of foot; L97.512 Non-pressure chronic ulcer of other part of right foot with fat layer exposed; L03.032 Cellulitis of left toe; E66.01 Morbid (severe) obesity due to excess calories; F17.218 Nicotine dependence, cigarettes, with other nicotine-induced disorders; Z68.42 Body mass index [BMI] 45.0-49.9, adult
CPT/HCPCS: 11042; G0463

== ENCOUNTER → 2023-01-04 | Outpatient (CLI) | payer MEDICARE ==
[~2023-01-04] MED LIST changes: +GADOTERATE 0.5 MMOL/ML (CLARISCAN) 20 ML VIAL IV ONE
--- NOTE | 2023-01-04 15:50 | Diagnostic Imaging Report ---
EXAM: MRI left foot without and with intravenous contrast. DATE: January 04, 2023. INDICATION: 52-year-old male, soft tissue ulcer at the level of the left great toe. Left great toe pain. Evaluation for osteomyelitis. COMPARISON: Three-phase bone scan January 01, 2023. TECHNIQUE: Multiple perivascular MRI sequences of the left foot were obtained. FINDINGS: There is a linear tract of lack of enhancement medially located at the level of the first interphalangeal joint which may correlate with site of soft tissue ulcer. There is adjacent soft tissue edema and enhancement. There is no peripherally enhancing well marginated drainable fluid collection or abscess. Areas of soft tissue abnormality directly contact bone. There is edema-like signal and enhancement involving the entire extent of the first distal phalanx. There is no first interphalangeal joint effusion or abnormal marrow signal in the first proximal phalanx. There is also a potential soft tissue ulcer dorsally at the level of the tuft of the first distal phalanx. There is no identified acute fracture, stress reaction, or evidence of osteonecrosis. There is additional dorsal subcutaneous edema of the foot. The joint spaces are well preserved. There is no joint effusion. IMPRESSION: 1. Probable soft tissue ulcers medial to the first interphalangeal joint also potentially dorsally at the level of the tuft of the first distal phalanx. 2. No discrete drainable fluid collection or abscess. 3. Osteomyelitis involving the entire first distal phalanx. 4. No evidence of septic arthritis. Dictated by: Dictated on workstation # [id number]
--- NOTE | 2023-01-04 17:14 | Diagnostic Imaging Report ---
EXAM: MRI right foot without and with intravenous contrast. DATE: January 04, 2023. INDICATION: 52-year-old male, bilateral foot pain. Ulcers in the regions of the right and left first digits. COMPARISON: Right foot radiographs December 04, 2022. Nuclear Medicine bone scan January 01, 2023. TECHNIQUE: Multiple pre and post contrast MRI sequences of the right foot were obtained. FINDINGS: There is absence of the vast majority of the length of the second metatarsal with absence of the second digit phalanges. There is question of a dorsal soft tissue ulcer in the region of the first digit nailbed. Recommend correlation with physical exam. There is no T1 marrow signal loss or bone destruction. There is minimal edema-like signal in the first distal phalanx without appreciable contrast enhancement. There is soft tissue edema at the level of the first distal phalanx without discrete focal fluid collection or abscess. There is no evidence of tenosynovitis. There is fatty atrophy of the foot musculature, likely relating to polyneuropathy. The joint spaces are fairly well preserved. There is no joint effusion. IMPRESSION: 1. Questionable soft tissue ulcer in the region of the first digit nailbed. 2. No identified discrete focal fluid collection or abscess. 3. Minimal edema-like signal in the first distal phalanx without T1 marrow signal loss or convincing evidence of active osteomyelitis. 4. No evidence of septic arthritis. 5. Fatty atrophy of the foot musculature, likely reflecting polyneuropathy. Dictated by: Dictated on workstation # [id number]
== END ==
LOC: RAD 14:00
PROVIDERS: ATTEND Family Medicine
DX: L97.512 Non-pressure chronic ulcer of other part of right foot with fat layer exposed (principal); L97.522 Non-pressure chronic ulcer of other part of left foot with fat layer exposed; M62.9 Disorder of muscle, unspecified
CPT/HCPCS: 73720

== ENCOUNTER → 2023-01-10 | Outpatient (CLI) | payer MEDICARE ==
[~2023-01-10] MED LIST changes: -GADOTERATE 0.5 MMOL/ML (CLARISCAN) 20 ML VIAL IV ONE
== END ==
LOC: WOUNDCARE 13:29
PROVIDERS: ATTEND Family Medicine
DX: I96 Gangrene, not elsewhere classified (principal); S91.141 Puncture wound with foreign body of right great toe without damage to nail; E11.621 Type 2 diabetes mellitus with foot ulcer; E11.40 Type 2 diabetes mellitus with diabetic neuropathy, unspecified; L97.512 Non-pressure chronic ulcer of other part of right foot with fat layer exposed; L03.032 Cellulitis of left toe; F17.218 Nicotine dependence, cigarettes, with other nicotine-induced disorders; I70.235 Atherosclerosis of native arteries of right leg with ulceration of other part of foot; M86.172 Other acute osteomyelitis, left ankle and foot; E66.01 Morbid (severe) obesity due to excess calories; Z68.42 Body mass index [BMI] 45.0-49.9, adult
CPT/HCPCS: 11042; G0463

== ENCOUNTER → 2023-01-12 | Outpatient (CLI) | payer MEDICARE ==
[~2023-01-12] VITALS: Ht 165.1 cm; Wt 130.6 kg
[~2023-01-12] MED LIST changes: +DULO20CA19 PO; +IPRA4AER IH; +METF-478 PO
== END | disposition home or self-care (01) ==
LOC: PREOP 05:23
PROVIDERS: ATTEND Podiatrist Foot & Ankle Surgery
DX: Z01.818 Encounter for other preprocedural examination (principal)

== ENCOUNTER → 2023-01-17 | Outpatient (CLI) | payer MEDICARE | LOC: WOUNDCARE 13:19 | PROVIDERS: ATTEND Family Medicine | DX: L97.512 Non-pressure chronic ulcer of other part of right foot with fat layer exposed (principal); S91.14 Puncture wound with foreign body of toe without damage to nail; L03.032 Cellulitis of left toe; E11.621 Type 2 diabetes mellitus with foot ulcer; E66.01 Morbid (severe) obesity due to excess calories; Z68.42 Body mass index [BMI] 45.0-49.9, adult; F17.218 Nicotine dependence, cigarettes, with other nicotine-induced disorders; I70.235 Atherosclerosis of native arteries of right leg with ulceration of other part of foot; M86.172 Other acute osteomyelitis, left ankle and foot; E11.65 Type 2 diabetes mellitus with hyperglycemia | CPT/HCPCS: 11042; G0463 ==

== ENCOUNTER 2023-01-19 10:15 | Day surgery (SDC) | payer MEDICARE ==
[~2023-01-19] VITALS: Ht 130.6 cm; Wt 130.6 kg
[2023-01-19] VITALS (11 sets, daily range): BP systolic 74–140; BP diastolic 47–86
[2023-01-19] MEDS ORDERED: LACTATED RINGERS 1,000 ML 1,000 ML IV PRN (10:30)
[2023-01-19] MEDS ORDERED: VANCOMYCIN INJECTION 1,000 MG in NS (IVPB) 250 ML 250 ML IV ONE (10:30)
[2023-01-19] MEDS ORDERED: MIDAZOLAM INJ 2 MG/2 ML VIAL IV ONE (11:45)
[2023-01-19] MEDS ORDERED: MIDAZOLAM INJ 2 MG/2 ML VIAL ONE ×2 (11:47→12:14)
[2023-01-19] MEDS ORDERED: ONDANSETRON INJECTION 4 MG/2 ML (SDV) ONE (12:14)
[2023-01-19] MEDS ORDERED: proPOfol INJECTION 200 MG/20 ML VIAL IV ONE (12:14)
[2023-01-19] MEDS ORDERED: SEVOFLURANE (ULTANE) 15 ML INHAL SOLN ONE (12:14)
[2023-01-19] MEDS ORDERED: LIDOCAINE PF 2% 5 ML VIAL ONE (12:14)
[2023-01-19] MEDS ORDERED: fentaNYL INJECTION 100 MCG/2 ML VIAL ONE (12:14)
--- NOTE | 2023-01-19 12:20 | Progress Note-Pre Operative ---
Pre-Operative Progress Note Date of Available H&P: Jan 19, 2023 Date H&P Reviewed: Jan 19, 2023 Time H&P Reviewed: 12:20 Pre-Operative Diagnosis: Osteomyelitis left hallux MARITO GORDON DPFrantz Jan 19, 2023 12:20
[2023-01-19] MEDS ORDERED: BUPIVACAINE 0.5% 30 ML VIAL ONE (12:31)
[2023-01-19] MEDS ORDERED: BUPIVACAINE 0.5% 30 ML VIAL INJ ONE (13:21)
--- NOTE | 2023-01-19 13:28 | Progress Note-Post Operative ---
Post-Operative Progess Note Surgeon (s)/Marketing Project Coordinator (s) Surgeon MARITO GORDON DPM Marketing Project Coordinator: none Pre-Operative Diagnosis Osteomyelitis left hallux Post-Operative Diagnosis same Procedure & Operative Findings Date of Procedure 01/19/23 Procedure Performed/Findings Amputation of left hallux Anesthesia Type general Estimated Blood Loss Estimated blood loss (mL): minimal Specimens/Packing Specimens Removed left hallux MARITO GORDON DPM Jan 19, 2023 13:28
[2023-01-19] MEDS ORDERED: HYDROcodone/ACETAMINOPHEN 5 MG/325 MG TABLET PO PRN (13:30)
[2023-01-19] MEDS ORDERED: LACTATED RINGERS 1,000 ML 1,000 ML IV SCH (13:30)
--- NOTE | 2023-01-19 13:36 | Anesthesia-General Post-Op ---
General Patient Condition Mental Status/LOC: Same as Preop Cardiovascular: Satisfactory Nausea/Vomiting: Absent Respiratory: Satisfactory Pain: Controlled Complications: Absent Post Op Complications Complications None Follow Up Care/Instructions Patient Instructions None needed. Anesthesia/Patient Condition Patient Condition Patient is doing well, no complaints, stable vital signs, no apparent adverse anesthesia problems. No complications reported per nursing. SHON HOLCOMB CRNA Jan 19, 2023 13:36
[2023-01-19] MEDS ORDERED: morphine INJ 10 MG/ML 1ML (SYR OR VIAL) IVP ONE (13:45)
[2023-01-19] MEDS ORDERED: ONDANSETRON INJECTION 4 MG/2 ML (SDV) IVP PRN (13:45)
[2023-01-19] MEDS ORDERED: MEPERIDINE INJ 50 MG/ML VIAL IVP ONE (13:45)
[2023-01-19] MEDS ORDERED: ACHD5005 PO ×2 (15:22)
--- NOTE | 2023-01-19 18:18 | Diagnostic Imaging Report ---
Indication: Postoperative check. Examination: Left foot 01/19/2023 Findings: There are postoperative changes of osteotomy through the mid to distal aspect of the proximal 1st phalanx. Overlying subcutaneous air consistent with recent surgery. Remaining foot unremarkable. Impression: 1. Uncomplicated postoperative changes. Dictated by: Dictated on workstation # [id number]
--- NOTE | 2023-01-19 23:10 | OPERATIVE REPORT ---
DATE OF SERVICE: 01/19/2023 SURGEON: Christine Gordon DPM. PREOPERATIVE DIAGNOSIS: Osteomyelitis, left hallux. POSTOPERATIVE DIAGNOSIS: Osteomyelitis, left hallux. PROCEDURE: Amputation of left hallux. WOUND CLASS: Contaminated. ANESTHESIA: General. HEMOSTASIS: Pneumatic ankle tourniquet at 250 mmHg. INDICATIONS: This 52-year-old male presents with a chronic wound to the left foot resulting in an MRI that was positive for osteomyelitis of the entire distal phalanx of the left hallux. Conservative therapy is met with unsatisfactory results and the patient is agreeable to surgical intervention, after risks and complications were discussed at length. No guarantees were extended to the patient and he is willing to proceed. DESCRIPTION OF PROCEDURE: The patient was brought back to the operating table, placed in secure supine position. Appropriate timeout was performed. General anesthetic was then induced. The left foot was then prepped and draped in normal sterile manner. The left foot was then elevated allowed to exsanguinate, after which the left ankle tourniquet was inflated to 250 mmHg. Attention was then directed to the left hallux, where a racket-type incision was created starting to the medial aspect the distal portion of the proximal phalanx extending distally and superiorly, and distally inferiorly circumscribing the interphalangeal joint of the left hallux. The left hallux interphalangeal joint was disarticulated and the distal portion of the toe was sent for gross and microscopic evaluation, after a small sample was taken of the bone for cultures and sensitivity. Because of the location of the ulcer to the plantar medial aspect of the hallux, I did not want to leave that tissue behind. This was resected sharply. This required additional bone to remove for closure. This was appropriate in the sense that we needed to have a section of bone to determine penetration of the osteomyelitis. Utilized a power sagittal saw in the distal aspect of the proximal phalanx of the left hallux was removed. This was done at a distal dorsal to proximal plantar orientation to reduce any stress risers that might develop in further ulceration in his future. The wound was flushed with a power irrigation at this point, with normal saline with 1 liter. The area was then swab cultured to confirm a clean environment as possible. The extensor and flexor tendons were cut back as proximally as possible. Active bleeders were cauterized. The wound was flushed once again, after which closure was then performed with a skin closure utilizing 4-0 Prolene in a simple interrupted type stitch. Excellent skin coaptation was appreciated this time without stress. Postoperative injection consisted of 8 mL of 0.5% Marcaine plain injected in a digital block. Postoperative dressing consisted of Betadine-soaked Adaptic, sterile 4 x 4, sterile Kerlix, all secured with a Coban wrap. The patient tolerated the anesthesia and procedure well and was transported from the operating room to the recovery area with vital signs stable and vascular status intact to all digits of the remaining digits of the left foot. We will see the patient back in the office in 10 days period of time. In the meantime, he is to be partial weightbearing with minimal weight to the left forefoot in a surgical splint shoe. Job ID: [id number] DocumentID: [id number] Dictated Date: 01/19/2023 13:37:08 Charge Entry Date: 01/19/2023 23:09:00 Dictated By: CHRISTINE GORDON DPM
== END 2023-01-19 15:30 | disposition home or self-care (01) ==
LOC: SDC 10:15
PROVIDERS: ATTEND Podiatrist Foot & Ankle Surgery
DX: M86.9 Osteomyelitis, unspecified (principal); F17.210 Nicotine dependence, cigarettes, uncomplicated; G47.33 Obstructive sleep apnea (adult) (pediatric); E66.01 Morbid (severe) obesity due to excess calories; Z68.45 Body mass index [BMI] 70 or greater, adult; E11.40 Type 2 diabetes mellitus with diabetic neuropathy, unspecified; E11.51 Type 2 diabetes mellitus with diabetic peripheral angiopathy without gangrene; E11.65 Type 2 diabetes mellitus with hyperglycemia; Z79.84 Long term (current) use of oral hypoglycemic drugs
CPT/HCPCS: 73620; 82947; 87070; 87075; 87081; 87205; 88305; 88311

== ENCOUNTER → 2023-01-24 | Outpatient (CLI) | payer MEDICARE ==
[2023-01-24 14:14] LABS: CALCIUM 9.3 MG/DL (8.5-10.1); CREATININE SERUM 1.05 MG/DL (0.60-1.30); POTASSIUM 4.3 MMOL/L (3.6-5.0)
== END ==
LOC: WOUNDCARE 13:16
PROVIDERS: ATTEND Family Medicine
DX: E11.621 Type 2 diabetes mellitus with foot ulcer (principal); E11.40 Type 2 diabetes mellitus with diabetic neuropathy, unspecified; L97.512 Non-pressure chronic ulcer of other part of right foot with fat layer exposed; E66.01 Morbid (severe) obesity due to excess calories; I70.235 Atherosclerosis of native arteries of right leg with ulceration of other part of foot; M86.172 Other acute osteomyelitis, left ankle and foot; E11.65 Type 2 diabetes mellitus with hyperglycemia; F17.218 Nicotine dependence, cigarettes, with other nicotine-induced disorders; Z68.42 Body mass index [BMI] 45.0-49.9, adult
CPT/HCPCS: 11042; 80048; G0463; 36415

== ENCOUNTER → 2023-01-29 | Outpatient (CLI) | payer MEDICARE ==
--- NOTE | 2023-01-29 14:41 | Diagnostic Imaging Report ---
PROCEDURE: US right lower extremity venous. TECHNIQUE: Multiple real-time grayscale images were obtained over the right lower extremity in various projections. Additional spectral analysis and color Doppler duplex images were also obtained. INDICATION: Right leg swelling. There is no evidence of right lower extremity DVT. Right lower extremity deep venous system shows normal compressibility with normal response to augmentation and Valsalva. Peroneal vein in the calf was not well visualized. There is no fluid collection or mass detected. IMPRESSION: No evidence of right lower extremity DVT. Dictated by: Dictated on workstation # [id number]
== END ==
LOC: RAD 13:08
PROVIDERS: ATTEND Family Medicine
DX: E11.621 Type 2 diabetes mellitus with foot ulcer (principal); I70.235 Atherosclerosis of native arteries of right leg with ulceration of other part of foot; L97.512 Non-pressure chronic ulcer of other part of right foot with fat layer exposed; E11.40 Type 2 diabetes mellitus with diabetic neuropathy, unspecified; E66.01 Morbid (severe) obesity due to excess calories; Z68.42 Body mass index [BMI] 45.0-49.9, adult; F17.218 Nicotine dependence, cigarettes, with other nicotine-induced disorders; M86.172 Other acute osteomyelitis, left ankle and foot; E11.65 Type 2 diabetes mellitus with hyperglycemia

== ENCOUNTER → 2023-02-05 | Outpatient (CLI) | payer MEDICARE | LOC: WOUNDCARE 15:01 | PROVIDERS: ATTEND Family Medicine | DX: E11.621 Type 2 diabetes mellitus with foot ulcer (principal); E11.65 Type 2 diabetes mellitus with hyperglycemia; E11.40 Type 2 diabetes mellitus with diabetic neuropathy, unspecified; L97.512 Non-pressure chronic ulcer of other part of right foot with fat layer exposed; E66.01 Morbid (severe) obesity due to excess calories; I70.235 Atherosclerosis of native arteries of right leg with ulceration of other part of foot; M86.172 Other acute osteomyelitis, left ankle and foot; F17.218 Nicotine dependence, cigarettes, with other nicotine-induced disorders; Z68.42 Body mass index [BMI] 45.0-49.9, adult | CPT/HCPCS: 11042; G0463 ==

== ENCOUNTER → 2023-02-12 | Outpatient (CLI) | payer MEDICARE | LOC: WOUNDCARE 12:40 | PROVIDERS: ATTEND Family Medicine | DX: E11.621 Type 2 diabetes mellitus with foot ulcer (principal); E11.65 Type 2 diabetes mellitus with hyperglycemia; E11.40 Type 2 diabetes mellitus with diabetic neuropathy, unspecified; L97.512 Non-pressure chronic ulcer of other part of right foot with fat layer exposed; E66.01 Morbid (severe) obesity due to excess calories; I70.235 Atherosclerosis of native arteries of right leg with ulceration of other part of foot; M86.172 Other acute osteomyelitis, left ankle and foot; F17.218 Nicotine dependence, cigarettes, with other nicotine-induced disorders; Z68.42 Body mass index [BMI] 45.0-49.9, adult | CPT/HCPCS: 11042; G0463 ==

== ENCOUNTER → 2023-02-19 | Outpatient (CLI) | payer MEDICARE | LOC: WOUNDCARE 12:35 | PROVIDERS: ATTEND Family Medicine | DX: E11.621 Type 2 diabetes mellitus with foot ulcer (principal); E11.65 Type 2 diabetes mellitus with hyperglycemia; E11.40 Type 2 diabetes mellitus with diabetic neuropathy, unspecified; L97.512 Non-pressure chronic ulcer of other part of right foot with fat layer exposed; E66.01 Morbid (severe) obesity due to excess calories; I70.235 Atherosclerosis of native arteries of right leg with ulceration of other part of foot; F17.218 Nicotine dependence, cigarettes, with other nicotine-induced disorders; Z68.42 Body mass index [BMI] 45.0-49.9, adult | CPT/HCPCS: 11042; G0463 ==